=== PATIENT | male | born 1935 | race Caucasian/White ===

== ENCOUNTER 2017-03-08 08:55 | Day surgery (SDC) | payer MEDICARE, OTHER ==
[~2017-03-08] VITALS: Ht 180.3 cm; Wt 81.8 kg
[~2017-03-08 08:55] MED LIST: ACETAMINOPHEN325 M1 PO; ADVIL200 MG PO; ASPIRIN EC81 MG PO; ATENOLOL25 MG PO; BENADRYL ALLERG25 MG PO; CALCIUM 600 +1 EACH PO; CENTRUM SILVER1 EAC6 PO; GLUCOSAMINE CO1 EACH PO; HYOSCYAMINE0.125 MG PO; KEFLEX500 MG PO; RILUZOLE50 MG PO; VENTOLIN HFA18 GM INH; VITAMIN B-12500 MCG PO; VITAMIN C1000 MG PO; VITAMIN D32000 UNI1 PO; VITAMIN E400 UNI2 PO
[2017-03-08] MEDS ORDERED: HYDROCODON-ACE1 EA10 PO (11:38)
--- NOTE | 2017-03-08 12:09 | NUR ---
03/08/17 Suha Ltot PT PORT IS ACCESSED FROM OR, PT GOING TO DS FOR INFUSION. DS WILL GO OVER DC INSTRUCTIONS. VSS.
--- NOTE | 2017-03-08 12:44 | NUR ---
PT RETURNED FROM PACU WIDE AWAKE. ODILIA CATH SITE ACCESSED FROM OR.
--- NOTE | 2017-03-08 13:29 | NUR ---
RADICAVA INFUSION COMPLETE. LINE FLUSHED W/20 ML NS AND ANCEF 1 GRAM GIVEN OVER 3 MINUTES. SPOUSE REMAINS @ BS.
--- NOTE | 2017-03-08 13:40 | NUR ---
PT REQ WATER. WATER GIVEN. PT SIPS ON WATER AND TOLERATES THAT WELL.
--- NOTE | 2017-03-08 16:05 | NUR ---
LE 1430 PT WITH NO C/O'S. GETTING DRESSED TO GO HOME. 1450 LEFT VIA W/C. WILL RETURN DAILY FOR IV THERAPY AT 10AM.
--- NOTE | 2017-03-10 09:32 | OR ---
[facility] [address], [place] [address] Signed DATE OF OPERATION: 03/08/2017 SURGEON: Zaria Robles MD PREOPERATIVE DIAGNOSIS: Progressive amyotrophic lateral sclerosis (ALS). POSTOPERATIVE DIAGNOSIS: Progressive amyotrophic lateral sclerosis (ALS). PROCEDURES: 1. Right subclavian Port-A-Cath placement for novel therapy for ALS. 2. Surgeon-directed fluoroscopy. ANESTHESIA: General IV, (Zaria Mart CRNA) and local 10 mL of 0.1% lidocaine with epinephrine. INDICATION: This 81-year-old white man is a patient of Dr. Lorenzo De La O and also Dr. Polly Silverio of [place], [place], and has progressive ALS. A novel intravenous treatment plan has been outlined for him in hopes of arresting the progression of the disease. A Port-A-Cath has been recommended for assistance in placement of administration of that medication. The patient and his understand the risks of bleeding, infection, pneumothorax, and other unforeseen complications related to placement of the device and wished to proceed. A special note: The patient fell in his home in the past day or so and then applied a heating pad to his back, which caused a superficial thermal injury. I have reviewed this and there is minimal amount of less than 1 cm blistering in one area, but it likely will heal without elaborate measures. It does not pose a contraindication to placement of the Port-A-Cath at this time. FINDINGS: The patient had a fair amount of scar tissue and issues related to his left shoulder and therefore, a left infraclavicular approach was not appropriate. An attempt to right internal jugular approach was not forthcoming and therefore, a right subclavian approach was used with good success. Catheter was functioning well and was left accessed at completion of the procedure. A postprocedure chest x-ray in recovery room showed tip of the catheter in the superior vena cava without evidence of complication of pneumothorax Electronically Signed By: ZARIA ROBLES MD 03/10/17 0932 PATIENT NAME: ZAKIA WISE OPERATIVE REPORT DATE OF : 33 PHYSICIAN: ZARIA ROBLES MD REPORT #: [id number] REPORT IS CONFIDENTIAL AND NOT TO BE RELEASED WITHOUT AUTHORIZATION [facility] [address], [place] [address] Signed or other problems. DESCRIPTION OF PROCEDURE: The patient was brought to the operating room, placed in the supine position, given intravenous sedation to a deep level with full cardiopulmonary monitoring by the music specialist. Examination of the left infraclavicular space and shoulder showed a fair amount of scar tissue and so forth, and it was deemed an unlikely site for placement of the device. On that basis, the upper torso and neck were clipped and prepared with a chlorhexidine solution, draped sterilely and his face turned towards the left. 1% lidocaine was injected over the right sternocleidomastoid muscle inferior to the crossing vein after a sterile draping. Attempts at access to right internal jugular were unsuccessful despite attempts to do so, and on that basis, the right infraclavicular space was deemed most appropriate. Additional lidocaine anesthetic was injected there and using a Seldinger technique with a single pass, the right subclavian vein was accessed showing dark nonpulsatile blood. A flexible J-wire was passed down the needle and the needle removed. Fluoroscopy was used to confirm the wire in the right heart system. Sternal wires were noted in the visual field as well. Lidocaine was injected transversely over the right pectoralis muscle area and a transverse incision was made and dissection carried through the subcutaneous tissue with electrocautery and blunt dissection. A pocket was created inferiorly. Using an #11 blade, the puncture side in the infraclavicular space was incised and subsequently dilator and peel-away sheath introducer have passed over the wire, and the wire and dilator removed. A previously inspected Bard port Groshong catheter was passed down the peel-away sheath introducer and the peel-away sheath removed. A small amount of contrast was used to better visualize the catheter. The table was returned to a neutral position from Trendelenburg and fluoroscopy undertaken once again. This allowed for withdrawal of the catheter to situate the tip of the catheter in the superior vena cava. It appeared to be optimally placed. The catheter was flushed with heparinized saline and using a tunneling device, the catheter was delivered to the pocket, located inferiorly on the chest wall. The catheter was transected and at the appropriate length and secured to the port device within close collar device. The port was secured to the pectoralis fascia with 2-0 Vicryl suture. Access of the port with an angled Concepcion needle showed good return of blood and easy flushing. The pocket was then secured in the subcutaneous space with interrupted 2-0 Vicryl and skin closed with running subcuticular 3-0 Vicryl. The puncture site was reapproximated with interrupted 3-0 Vicryl. Steri-Strips were applied. An angled Concepcion needle once again used to percutaneously access device, aspirating blood freely without problem and Electronically Signed By: ZARIA ROBLES MD 03/10/17 0932 PATIENT NAME: ZAKIA WISE ZAIN OPERATIVE REPORT DATE OF : 33 PHYSICIAN: ZARIA ROBLES MD REPORT #: [id number] REPORT IS CONFIDENTIAL AND NOT TO BE RELEASED WITHOUT AUTHORIZATION [address] [place] [address] Signed irrigating freely with heparinized saline. The port was left accessed with the angled Concepcion needle and appropriate tubing and connectors. A Mepilex silver sponge dressing was applied as was an OpSite. The patient was allowed to emerge from sedation and taken to recovery room in good condition. A chest x-ray was performed, which showed good position of the catheter with the tip in the superior vena cava and no evidence of pneumothorax or other problem. The patient tolerated the procedure well. BLOOD LOSS: Minimal. COMPLICATIONS: None. MD IRENA Allen/MODL /[id number] cc: MD Em Shetty MD Electronically Signed By: ZARIA ROBLES MD 03/10/17 0932 PATIENT NAME: ZAKIA WISE OPERATIVE REPORT DATE OF : 34 PHYSICIAN: ZARIA ROBLES MD REPORT #: [id number] REPORT IS CONFIDENTIAL AND NOT TO BE RELEASED WITHOUT AUTHORIZATION
== END 2017-03-08 14:50 | disposition home or self-care (01) ==
LOC: DS 08:55 → OPS 08:55 → DS 11:15 → OPS 11:15
PROVIDERS: Surgery
PROC: B516YZA Fluoroscopy of Right Subclavian Vein using Other Contrast, Guidance (ICD-10-PCS; 2017-03-08)
PROC: 3E03305 Introduction of Other Antineoplastic into Peripheral Vein, Percutaneous Approach (ICD-10-PCS; 2017-03-08)
PROC: 05H533Z Insertion of Infusion Device into Right Subclavian Vein, Percutaneous Approach (ICD-10-PCS; principal; 2017-03-08 11:15)
DX: G12.21 Amyotrophic lateral sclerosis (principal); Z98.890 Other specified postprocedural states; I25.10 Atherosclerotic heart disease of native coronary artery without angina pectoris; E78.5 Hyperlipidemia, unspecified; I10 Essential (primary) hypertension; G47.33 Obstructive sleep apnea (adult) (pediatric); Z99.81 Dependence on supplemental oxygen
CPT/HCPCS: 00532; 71010; 77001; C1788; C9493; J0690; J1100; J1644; J1885; J2250; J2405; J2704; J3010

== ENCOUNTER 2017-04-19 23:13 | Emergency (ER) | payer MEDICARE, OTHER ==
[~2017-04-19] VITALS: Ht 180.3 cm; Wt 79.4 kg
[~2017-04-19 23:13] MED LIST changes: +HYDROCODON-ACE1 EA10 PO
== END 2017-04-20 00:50 | disposition home or self-care (01) ==
LOC: ED 23:13
DX: J39.8 Other specified diseases of upper respiratory tract (principal); G12.21 Amyotrophic lateral sclerosis; Z86.73 Personal history of transient ischemic attack (TIA), and cerebral infarction without residual deficits; I10 Essential (primary) hypertension; E78.5 Hyperlipidemia, unspecified; Z79.899 Other long term (current) drug therapy; Z79.82 Long term (current) use of aspirin
CPT/HCPCS: 70360; 71010; 99283

== ENCOUNTER 2017-09-13 17:53 | Emergency (ER) | payer MEDICARE, OTHER ==
[~2017-09-13] VITALS: Ht 180.3 cm; Wt 79.5 kg
== END 2017-09-13 19:15 | disposition home or self-care (01) ==
LOC: ED 17:53
DX: S42.032A Displaced fracture of lateral end of left clavicle, initial encounter for closed fracture (principal); S22.42XA Multiple fractures of ribs, left side, initial encounter for closed fracture; I48.91 Unspecified atrial fibrillation; I10 Essential (primary) hypertension; E78.5 Hyperlipidemia, unspecified; Z86.73 Personal history of transient ischemic attack (TIA), and cerebral infarction without residual deficits; Z79.899 Other long term (current) drug therapy; Z79.82 Long term (current) use of aspirin; W18.30XA Fall on same level, unspecified, initial encounter
CPT/HCPCS: 73030; 99283

== ENCOUNTER 2018-07-11 11:02 | Emergency (ER) | payer MEDICARE, OTHER ==
[~2018-07-11] VITALS: Ht 180.3 cm; Wt 79.5 kg
--- OUTSIDE RECORDS SUMMARY | 2018-07-11 11:06 | XMS ---
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 Curt VISIT COUNT (12 MO.) 2 MAURY Chowdary TOTAL 2 NOTE: Visits indicate total known visits. 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
[2018-07-11] MEDS ORDERED: NORCO 5-325 TA1 EACH PO (11:53)
== END 2018-07-11 13:00 | disposition home or self-care (01) ==
LOC: ED 11:02
PROC: 093K7ZZ Control Bleeding in Nasal Mucosa and Soft Tissue, Via Natural or Artificial Opening (ICD-10-PCS; principal; 2018-07-11)
DX: R04.0 Epistaxis (principal); I48.91 Unspecified atrial fibrillation; I10 Essential (primary) hypertension; Z86.73 Personal history of transient ischemic attack (TIA), and cerebral infarction without residual deficits; E78.5 Hyperlipidemia, unspecified; G62.9 Polyneuropathy, unspecified; Z79.899 Other long term (current) drug therapy; Z79.82 Long term (current) use of aspirin
CPT/HCPCS: 30903; 85025; 85610; 85730; 99283-25

== ENCOUNTER 2018-09-22 17:16 | Inpatient (IN) | payer MEDICARE, OTHER ==
[~2018-09-22] VITALS: Ht 177.8 cm; Wt 76.5 kg
--- OUTSIDE RECORDS SUMMARY | ~2018-09-22 | XMS | Encounter Summary ---
Demographics + + + | Address | [address] | | | [place] [address] | + + + | Home Phone | | + + + | Preferred Language | Unknown | + + + | Marital Status | | + + + | Catholic Affiliation | UNK | + + + | Race | White | + + + | Ethnic Group | Not or | + + + Author + + + | Author | [facility] | + + + | Organization | [facility] | + + + | Address | Unknown | + + + | Phone | Unavailable | + + + Support + + +---------+ + | Name | Relationship | Address | Phone | + + +---------+ + | Ria Zaidi | ECON | Unknown | | + + +---------+ + Care Team Providers + +------+ + | Care Club Licensee Name | Role | Phone | + +------+ + PCP | Unavailable | + +------+ + Encounter Details +--------+ + + + + | Date | Type | Department | Care Team | Description | +--------+ + + + + | 06/05/ | Office | [facility] | Note, Outpatient | Progress Note | | 2001 | Visit-Trans | MEDICINE | Clinic | | | | cribed | | | | +--------+ + + + + Social History + +-------+ +--------+------+ | Tobacco [...] recent travel history available. | + + documented as of this encounter Progress Notes Interface, Town Clerk In - 01/16/2006 1:06 AM PDTCLINIC DATE: 06/05/2001 ORTHOPEDIC CLINIC This patient returned for followup of a left total shoulder arthroplasty performed on May 17, 2001. His wound is well healed, and his pain is settling nicely. He is regaining good range of motion, and we have reviewed again the home exercise program. No voice concerns were raised, and he was asked to return in 1 month's time for clinical followup and repeat x-rays, AP, internal, and external rotation; and x-ray lateral of the left shoulder. Mohan Tapia M.D. ESTELA / REY [id number] / [id number] / [id number] / Tdocumented in this encounter Plan of Treatment Not on filedocumented as of this encounter Visit Diagnoses Not on filedocumented in this encounter"
--- OUTSIDE RECORDS SUMMARY | ~2018-09-22 | XMS | Encounter Summary ---
Demographics + + + | Address | [address] | | | [place] [address] | + + + | Home Phone | | + + + | Preferred Language | Unknown | + + + | Marital Status | | + + + | Moravian Affiliation | UNK | + + + | Race | White | + + + | Ethnic Group | Not or | + + + Author + + + | Author | [facility] | + + + | Organization | [facility] | + + + | Address | Unknown | + + + | Phone | Unavailable | + + + Support + + +---------+ + | Name | Relationship | Address | Phone | + + +---------+ + | Ria Zaidi | ECON | Unknown | | + + +---------+ + Care Team Providers + +------+ + | Care Salvage Determiner Name | Role | Phone | + +------+ + PCP | Unavailable | + +------+ + Encounter Details +--------+ + + + + | Date | Type | Department | Care Team | Description | +--------+ + + + + | 07/03/ | Office | [facility] | Note, [...] documented as of this encounter Progress Notes Palmer, Technician Biological Health In - 01/12/2006 3:07 AM PDTCLINIC DATE: 07/03/2001 ORTHOPEDIC CLINIC This patient returned for a 7-week followup of left total shoulder arthroplasty. He is progressing well with his range of motion and has little pain. He still has some discomfort when sleeping on his left side at night. Radiographs show maintenance of good alignment of the implant. We will advance him to commence using Thera-Band as well as continuing with the range of motion exercise. He is to return for followup in 6 weeks' time for clinical reassessment. Mohan Tapia M.D. ESTELA / REY [id number] / [id number] / [id number] / Tdocumented in this encounter Plan of Treatment Not on filedocumented as of this encounter Visit Diagnoses Not on filedocumented in this encounter"
--- OUTSIDE RECORDS SUMMARY | ~2018-09-22 | XMS | Encounter Summary ---
Demographics + + + | Address | [address] | | | [place] [address] | + + + | Home Phone | | + + + | Preferred Language | Unknown | + + + | Marital Status | | + + + | Worship Affiliation | UNK | + + + | Race | White | + + + | Ethnic Group | Not or | + + + Author + + + | Author | [facility] | + + + | Organization | [facility] | + + + | Address | Unknown | + + + | Phone | Unavailable | + + + Support + + +---------+ + | Name | Relationship | Address | Phone | + + +---------+ + | Ria Zaidi | ECON | Unknown | | + + +---------+ + Care Team Providers + +------+ + | Care Certified Registered Nurse Practitioner Name | Role | Phone | + [...] as of this encounter Progress Notes Palmer, Variety Saw Operator In - 01/12/2006 3:07 AM PDTCLINIC DATE: [...] reassessment. Mohan Tapia M.D. ESTELA / REY [id number] / [id number] / [id number] / Tdocumented in this encounter Plan of Treatment Not on filedocumented as of this encounter Visit Diagnoses Not on filedocumented in this encounter"
--- OUTSIDE RECORDS SUMMARY | ~2018-09-22 | XMS | Encounter Summary ---
Demographics + + + | Address | [address] | | | [place] [address] | + + + | Home Phone | | + + + | Preferred Language | Unknown | + + + | Marital Status | | + + + | Holiness Affiliation | UNK | + + + | Race | White | + + + | Ethnic Group | Not or | + + + Author + + + | Author | [facility] | + + + | Organization | [facility] | + + + | Address | Unknown | + + + | Phone | Unavailable | + + + Support + + +---------+ + | Name | Relationship | Address | Phone | + + +---------+ + | Ria Zaidi | ECON | Unknown | | + + +---------+ + Care Team Providers + +------+ + | Care Auto Mechanic Name | Role | Phone | + +------+ + PCP | Unavailable | + +------+ + Encounter Details +--------+ + + + + | Date | Type | Department | Care Team | Description | +--------+ + + + + | 03/01/ | Results | [facility] | Wesley Mathew MD | | | 2001 | Only | & Rehabilitation | [address] | | | | | [address] | [facility], | | | | | [facility] | [place] [address] | | | | | Mailcode: [id number] | [phone] | | | | | Phys[facility] | | | | | | [place], [place] | | | | | | [address] | | | | | | [phone] | | | +--------+ + + + [...] + + documented as of this encounter Plan of Treatment Not on filedocumented as of this encounter Procedures + +--------+ + + + | Procedure Name | Priori | Date/Time | Associated Diagnosis | Comments | | | ty | | | | + +--------+ + + + | X-RAY SHOULDER 3+ | Routin | 03/01/2002 | | Results for this | | VIEWS LEFT | e | 1:07 PM | | procedure are in the | | | | PST | | results section. | + +--------+ + + + documented in this encounter Results SHOULDER 3+ VIEWS LEFT (03/01/2002 1:07 PM PST) + + + + + + | Component | Value | Ref Range | Performed | Pathologist | | | | | At | Signature | + + + + + + | SHOULDER 3+ | Radiologist 1: EMMETT, | | | | | VIEWS LEFT | Larry ARREDONDOAP EXTERNAL | | | | | | ROTATION AND INTERNAL | | | | | | ROTATION AND SUPINE | | | | | | AXILLARY VIEWSOF THE | | | | | | LEFT | | | | | | SHOULDER: 03/01/2002 | | | | | | at 1257 hours | | | | | | Dictated 03/01/2002 | | | | | | COMPARISON: | | | | | | 11/20/2001 and | | | | | | 07/03/2001. | | | | | | FINDINGS: A left | | | | | | shoulder unipolar | | | | | | humeral head prosthesis | | | | | | is onceagain | | | | | | identified. There is | | | | | | no change in position or | | | | | | alignment. Thereis | | | | | | less than 2 mm of distal | | | | | | periprosthetic lucency | | | | | | present, thoughthis does | | | | | | not appear | | | | | | significantly changed | | | | | | from the prior | | | | | | examination.Once again | | | | | | noted is flattening and | | | | | | sclerosis of the | | | | | | glenoid, which hasbeen | | | | | | described | | | | | | previously. The | | | | | | relationship between the | | | | | | proximalhumeral head | | | | | | component and the | | | | | | acromion remains within | | | | | | normal limits.The | | | | | | acromioclavicular joint | | | | | | remains intact. There | | | | | | are no | | | | | | hardwarecomplications. | | | | | | There is no | | | | | | periprosthetic | | | | | | fracture. There is | | | | | | nodislocation. | | | | | | IMPRESSION: | | | | | | 1. Unchanged position | | | | | | and alignment of the | | | | | | left unipolar humeral | | | | | | headprosthesis without | | | | | | evidence of hardware | | | | | | complication or | | | | | | periprostheticfracture. | | | | | | 2. 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 END | | | | | | OF IMPRESSION: | | | | + + + + + + + + | Specimen | + + | | + + + +---------+ + + | Performing | Address | City/State/Zipcode | Phone Number | | Organization | | | | + +---------+ + + | [facility] | | | | | RADIOLOGY | | | | + +---------+ + + documented in this encounter Visit Diagnoses Not on filedocumented in this encounter"
--- OUTSIDE RECORDS SUMMARY | ~2018-09-22 | XMS | Encounter Summary ---
Demographics + + + | Address | [address] | | | [place] [address] | + + + | Home Phone | | + + + | Preferred Language | Unknown | + + + | Marital Status | | + + + | Latter Day Affiliation | UNK | + + + | Race | White | + + + | Ethnic Group | Not or | + + + Author + + + | Author | [facility] | + + + | Organization | [facility] | + + + | Address | Unknown | + + + | Phone | Unavailable | + + + Support + + +---------+ + | Name | Relationship | Address | Phone | + + +---------+ + | Ria Zaidi | ECON | Unknown | | + + +---------+ + Care Team Providers + +------+ + | Care Quality Control Tech Raw Materials Name | Role | Phone | + +------+ + PCP | Unavailable | + +------+ + Encounter Details +--------+ + + + + | Date | Type | Department | Care Team | Description | +--------+ + + + + | 07/01/ | Office | [facility] | Note, [...] as of this encounter Progress Notes Palmer, Lead Technologist In Cytogenetics In - 01/12/2006 3:07 AM PDTCLINIC DATE: 07/01/2001 ORTHOPEDIC CLINIC SUBJECTIVE: Mr. Zaidi is now approximately 7 weeks status post left total shoulder arthroplasty. His surgery was on May 17, 2001. He returns today for a routine followup with his . He reports he has been having some trouble sleeping but denies any significant pain. He has been doing his pool exercises as well as vadim exercises. PHYSICAL EXAMINATION: His incision is well healed. He has no erythema. He has shoulder elevation to approximately 140 degrees, abduction to approximately 100 degrees. He has internal rotation to his back pocket. Distally, he is neurovascularly intact. IMPRESSION: X-rays today show a good position of his prosthesis. PLAN: Mr. Zaidi is now some weeks out from left total shoulder arthroplasty. He appears to be doing well. At this point, we will advance his activities to begin strengthening with the Yellow Thera-Band. The details were reviewed with the patient. The patient is to follow up again in 6 weeks. Shayna Alas M.D. [facility] / [id number] / [id number] / [id number] / [id number] Tdocumented in this encounter Plan of Treatment Not on filedocumented as of this encounter Visit Diagnoses Not on filedocumented in this encounter"
--- OUTSIDE RECORDS SUMMARY | ~2018-09-22 | XMS | Encounter Summary ---
Demographics + + + | Address | [address] | | | [place] [address] | + + + | Home Phone | | + + + | Preferred Language | Unknown | + + + | Marital Status | | + + + | Yarsanism Affiliation | UNK | + + + | Race | White | + + + | Ethnic Group | Not or | + + + Author + + + | Author | [facility] | + + + | Organization | [facility] | + + + | Address | Unknown | + + + | Phone | Unavailable | + + + Support + + +---------+ + | Name | Relationship | Address | Phone | + + +---------+ + | Ria Zaidi | ECON | Unknown | | + + +---------+ + Care Team Providers + +------+ + | Care Custom Bike Builder Name | Role | Phone | + +------+ + PCP | Unavailable | + +------+ + Encounter Details +--------+ + + + + | Date | Type | Department | Care Team | Description | +--------+ + + + + | 03/01/ | Office | [facility] | Note, Orthopedics | Progress Note | | 2001 | Visit-Trans | | Clinic | | | | cribed [...] as of this encounter Progress Notes Interface, Community Service Specialist In - 12/08/2005 3:00 AM PDTCLINIC DATE: 03/01/2002 ORTHOPEDIC CLINIC This patient returned for a 9-month followup of a 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 His elevation is up to about 130 degrees with 45 degrees of external rotation and internal rotation to L5. His power is also progressing well, and he is using the blue Thera-Bands. His comfort is excellent. He has been adding some exercise to his regime including pectoralis major flies and some circumduction movement with weights in the hand. I cautioned him not to overdo it with free weights and to particularly avoid anything such as a bench press. Other than this, I believe that he can do most activities without restrictions. We reviewed his therapy program at some length. He will be departing for [place] in about a month, and I suggested that he return to see me in July 2002 when he is back in town. We will repeat radiographs AP internal and external rotation, axillary, lateral of the left shoulder at that time. Mohan Tapia M.D. [facility] / [id number] / [id number] / [id number] / cc: Evan De La O M.D. [address] [place], [place] [email or web address] signed by Interface, Community Service Specialist In at 12/08/2005 3:0 0 AM PDTdocumented in this encounter Plan of Treatment Not on filedocumented as of this encounter Visit Diagnoses Not on filedocumented in this encounter"
--- OUTSIDE RECORDS SUMMARY | ~2018-09-22 | XMS | Encounter Summary ---
Demographics + + + | Address | [address] | | | [place] [address] | + + + | Home Phone [...] + + + | Author | [facility] | + + + | Organization | [facility] | + + + | Address | Unknown | + + + | Phone | Unavailable | + + + Support + + +---------+ + | Name | Relationship | Address | Phone | + + +---------+ + | Ria Zaidi | ECON | Unknown | | + + +---------+ + Care Team Providers + +------+ + | Care Toolroom Keeper Name | Role | Phone | + +------+ + PCP | Unavailable | + +------+ + Encounter Details +--------+ + + + + | Date | Type | Department | Care Team | Description | +--------+ + + + + | 03/31/ | Results | Orthopaedics at | Mohan Tapia MD | | | 2000 | Only | [facility] [address] | [address] | | | | | [facility] | [facility] | | | | | Mailcode: [id number] | [place], [place] | | | | | [facility] | [address] | | | | | [place], [place] | [phone] | | | | | [address] | | | | | | [phone] | | | +--------+ + + + [...] | + +--------+ + + + | SURGICAL PATHOLOGY | Routin | 05/17/2001 | | Results for this | | | e | | | procedure are in the | | | | | | results section. | + +--------+ + + + | BLOOD BANK PRODUCT | Routin | 05/16/2001 | | Results for this | | | e | 11:50 AM | | procedure are in the | | | | PST | | results section. | + +--------+ + + + | BLOOD BANK PRODUCT | Routin | 05/16/2001 | | Results for this | | | e | 11:50 AM | | procedure are in the | | | | PST | | results section. | + +--------+ + + + | TYPE AND CROSSMATCH | Routin | 05/16/2001 | | Results for this | | | e | 11:50 AM | | procedure are in the | | | | PST | | results section. | + +--------+ + + + | CT UPPER EXTREMITY | Routin | 03/31/2001 | | Results for this | | RIGHT WO CONTRAST | e | 12:10 PM | | procedure are in the | | | | PST | | results section. | + +--------+ + + + | CT UPPER EXTREMITY | Routin | 03/31/2001 | | Results for this | | LEFT WO CONTRAST | e | 12:10 PM | | procedure are in the | | | | PST | | results section. | + +--------+ + + + | SHOULDER, 1 VIEW | Routin | 03/31/2001 | | Results for this | | | e | 10:18 AM | | procedure are in the | | | | PST | | results section. | + +--------+ + + + documented in this encounter Results SURGICAL PATHOLOGY (05/17/2001) + + + + + + | Component | Value | Ref Range | Performed | Pathologist | | | | | At | Signature | + + + + + + | SURGICAL | SOURCE OF SPECIMEN:A | | [facility] | | | PATHOLOGY | Left humeral head Final | | DEPARTMENT | | | | Pathologic | | OF | | | | Diagnosis:Left humeral | | PATHOLOGY | | | | head, excision: | | | | | | - Bone with degenerative | | | | | | changes Case reviewed | | | | | | by:Jeb Boo | | | | | | Larry /Cecelia Castellon | | | | | | Larry Richey | | | | | | /PathologistT:05/24/01/ | | | | | | I have reviewed all | | | | | | diagnostic slides and | | | | | | have edited the gross | | | | | | and/ormicroscopic | | | | | | portion of this report | | | | | | as part of my pathologic | | | | | | assessment andfinal | | | | | | diagnosis. 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 Gross | | | | | | Description:Received is | | | | | | one specimen fresh | | | | | | labeled "left humeral | | | | | | head." Received | | | | | | aretwo irregular, | | | | | | unoriented fragments of | | | | | | circular to slightly | | | | | | ovoid bone withone of | | | | | | the fragments having a | | | | | | convex surface, grossly | | | | | | consistent with headof a | | | | | | bone, measuring 6.0 x | | | | | | 5.5 x 0.7 cm. There | | | | | | is a central area that | | | | | | istan to red and smooth, | | | | | | measuring 2.7 x 2.7 cm | | | | | | which encompasses at | | | | | | least50% of the total | | | | | | surface area. The | | | | | | second fragment of bone | | | | | | is a slicemeasuring 6.0 | | | | | | x 5.2 cm. No cortical | | | | | | bone is noted. The | | | | | | trabecular bone isbright | | | | | | red. Further | | | | | | examination of the | | | | | | convex fragment reveals | | | | | | an area ofpossible | | | | | | cortical bone measuring | | | | | | up to 0.4 cm | | | | | | encompassing one-fourth | | | | | | ofthe total | | | | | | circumference. The | | | | | | remainder of the | | | | | | trabecular bone | | | | | | isyellow-red. Cassette | | | | | | Index:A1-2, sections | | | | | | from last sectioned | | | | | | piece of bone, | | | | | | RS Decalcificationreq | | | | | | uestedA3, section from | | | | | | convex portion of bone | | | | | | with central smooth | | | | | | area, RSDecalcification | | | | | | requestedSP/VK/AR/fRende | | | | | | ring | | | | | | Diagnostician: Masha | | | | | | Kaiden | | | | | | M.D.PathologistElectroni | | | | | | rufino Signed | | | | | | 05/24/2001Comment: | | | | | | SOURCE OF SPECIMEN: Left | | | | | | humeral head | | | | + + + + + + + + | Specimen | + + | | + + + + + + + | Performing | Address | City/State/Zipcode | Phone Number | | Organization | | | | + + + + + | [facility] | [address] | [place] [address] | | | PATHOLOGY | [address] | | | + + + + + | [facility] | [facility] | [place] [address] | | | PATHOLOGY | [address] | | | + + + + + BLOOD BANK PRODUCT (05/16/2001 11:50 AM PST) + + + + + + | Component | Value | Ref Range | Performed | Pathologist | | | | | At | Signature | + + + + + + | PRODUCT | PACKED CELLS | | [facility] | | | DESCRIPTION | | | DEPARTMENT | | | | | | OF | | | | | | PATHOLOGY | | + + + + + + | PRODUCT | [id number] | | [facility] | | | UNIT # | | | DEPARTMENT | | | | | | OF | | | | | | PATHOLOGY | | + + + + + + | UNIT ABO | A | | [facility] | | | | | | DEPARTMENT | | | | | | OF | | | | | | PATHOLOGY | | + + + + + + | UNIT RH | POS | | [facility] | | | | | | DEPARTMENT | | | | | | OF | | | | | | PATHOLOGY | | + + + + + + | STATUS OF | Released | | [facility] | | | UNIT | | | DEPARTMENT | | | | | | OF | | | | | | PATHOLOGY | | + + + + + + + + | Specimen | + + | | + + + + + + + | Performing | Address | City/State/Zipcode | Phone Number | | Organization | | | | + + + + + | [facility] DE[facility]MENT [facility] | [address] | [place], [place] [address] | | | PATHOLOGY | [address] | | | + + + + + | [facility] DE[facility]MENT [facility] | [address] | [place] [address] | | | PATHOLOGY | [address] | | | + + + + + BLOOD BANK PRODUCT (05/16/2001 11:50 AM PST) + + + + + + | Component | Value | Ref Range | Performed | Pathologist | | | | | At | Signature | + + + + + + | PRODUCT | PACKED CELLS | | [facility] | | | DESCRIPTION | | | DEPARTMENT | | | | | | OF | | | | | | PATHOLOGY | | + + + + + + | PRODUCT | [id number] | | [facility] | | | UNIT # | | | DEPARTMENT | | | | | | OF | | | | | | PATHOLOGY | | + + + + + + | UNIT ABO | A | | [facility] | | | | | | DEPARTMENT | | | | | | OF | | | | | | PATHOLOGY | | + + + + + + | UNIT RH | POS | | [facility] | | | | | | DEPARTMENT | | | | | | OF | | | | | | PATHOLOGY | | + + + + + + | STATUS OF | Released | | [facility] | | | UNIT | | | DEPARTMENT | | | | | | OF | | | | | | PATHOLOGY | | + + + + + + + + | Specimen | + + | | + + + + + + + | Performing | Address | City/State/Zipcode | Phone Number | | Organization | | | | + + + + + | [facility] | [address] | [place] [address] | | | PATHOLOGY | [address] | | | + + + + + | [facility] | [address] | [place] [address] | | | PATHOLOGY | [address] | | | + + + + + ANTIBODY SCREEN & CROSSMATCH (05/16/2001 11:50 AM PST) + +-------+ + + + | Component | Value | Ref Range | Performed | Pathologist | | | | | At | Signature | + +-------+ + + + | ABO GROUP | A | | [facility] | | | | | | DEPARTMENT | | | | | | OF | | | | | | PATHOLOGY | | + +-------+ + + + | RH TYPE | POS | | [facility] | | | | | | DEPARTMENT | | | | | | OF | | | | | | PATHOLOGY | | + +-------+ + + + | ANTIBODY | NEG | | [facility] | | | SCREEN | | | DEPARTMENT | | | | | | OF | | | | | | PATHOLOGY | | + +-------+ + + + + + | Specimen | + + | | + + + + + | Narrative | Performed At | + + + | EXP 05/20/01 0700 | [facility] | | | DEPARTMENT OF | | | PATHOLOGY | + + + + + + + + | Performing | Address | City/State/Zipcode | Phone Number | | Organization | | | | + + + + + | [facility] | [address] | [place] [address] | | | PATHOLOGY | [address] | | | + + + + + | [facility] | [address] | [place] [address] | | | PATHOLOGY | [address] | | | + + + + + CT EXT UPR RT WO CONTRAST (03/31/2001 12:10 PM PST) + + + + + + | Component | Value | Ref Range | Performed | Pathologist | | | | | At | Signature | + + + + + + | CT EXT UPR | Radiologist 1: KOKO, | | | | | RT WO | Tim BRODERICK, | | | | | CONTRAST | M.D.-Radiologist 2: | | | | | | MURRAY PERKINS M.D.CT OF | | | | | | RIGHT SHOULDER WITH | | | | | | SAGITTAL AND | | | | | | CORONAL REFORMATIONS: | | | | | | 03/31/2001CT OF LEFT | | | | | | SHOULDER WITH SAGITTAL | | | | | | AND | | | | | | CORONAL REFORMATIONS: | | | | | | 03/31/2001Dictated | | | | | | 04/03/2001 CLINICAL: | | | | | | Left shoulder pain. | | | | | | COMPARISON STUDY: | | | | | | Axillary view, left | | | | | | shoulder, 03/31/01. | | | | | | TECHNICAL FACTORS: 3 | | | | | | mm axial imaging was | | | | | | performed at 2 | | | | | | mmintervals. A small | | | | | | field of view was used | | | | | | and each shoulder | | | | | | wastargeted | | | | | | separately. Sagittal | | | | | | and coronal reformatted | | | | | | images areobtained | | | | | | bilaterally; No IV | | | | | | contrast was given. | | | | | | FINDINGS: RIGHT | | | | | | SHOULDER: There is | | | | | | minimal degenerative | | | | | | change in the | | | | | | rightacromioclavicular | | | | | | joint with very mild | | | | | | inferior spurring of | | | | | | theclavicle. The | | | | | | subacromial joint space | | | | | | is at 6 mm, the lower | | | | | | limits | | | | | | ofnormal. Glenohumera | | | | | | l joint space is | | | | | | well-maintained. No | | | | | | fracture orsubluxation | | | | | | is identified. There | | | | | | are minimal subchondral | | | | | | cyst-likechanges in the | | | | | | greater and lesser | | | | | | tuberosities of the | | | | | | humerus. Noother | | | | | | degenerative changes are | | | | | | identified. No loose | | | | | | body is seen. The | | | | | | acromion is of a Type II | | | | | | appearance. No focal | | | | | | rotator cuffdeficit is | | | | | | identified. LEFT | | | | | | SHOULDER: There is | | | | | | advanced degenerative | | | | | | joint disease in theleft | | | | | | glenohumeral | | | | | | joint. There are | | | | | | prominent glenoid and | | | | | | humeral headosteophytes | | | | | | with reciprocal shaping | | | | | | of both the articulating | | | | | | humerusand | | | | | | glenoid. There is | | | | | | complete loss of joint | | | | | | space with a bone onbone | | | | | | | | | | | | appearance. Osteophyt | | | | | | es effectively increase | | | | | | the height of | | | | | | thearticulating humeral | | | | | | head and the humeral | | | | | | head is slightly | | | | | | inferiorlysubluxed in | | | | | | relation to the | | | | | | glenoid. There is | | | | | | deformity and | | | | | | milddownsloping of the | | | | | | glenoid in association | | | | | | with reciprocal | | | | | | shaping.Several of the | | | | | | marginal osteophytes are | | | | | | large and | | | | | | pedunculated. In | | | | | | atleast two areas, loose | | | | | | bodies are suspected | | | | | | measuring 7-10 | | | | | | mm. Theseare seen at | | | | | | the inferior margin of | | | | | | the glenohumeral | | | | | | joint. There | | | | | | isextensive subchondral | | | | | | sclerosis in the humeral | | | | | | head. There is | | | | | | mildcontour deformity in | | | | | | the humeral neck region | | | | | | suggesting old | | | | | | healedfracture. No | | | | | | recent fracture is | | | | | | identified. The | | | | | | acromioclavicular joint | | | | | | is | | | | | | normal. Subacromial | | | | | | joint space | | | | | | ismaintained. There is | | | | | | increased retroversion | | | | | | of the left glenoid when | | | | | | compared tothe | | | | | | right. Direct | | | | | | measurement is difficult | | | | | | secondary to exclusion | | | | | | ofthe medial border of | | | | | | the scapula which is | | | | | | normally used | | | | | | formeasurement. It is | | | | | | difficult to determine | | | | | | whether left | | | | | | glenoidretroversion is | | | | | | developmental or | | | | | | acquired. The left | | | | | | acromioclavicular joint | | | | | | is normal and the left | | | | | | acromion is ofa Type II | | | | | | appearance. IMPRESSION: | | | | | | 1. 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 There is a | | | | | | bone on bone appearance | | | | | | withextensive marginal | | | | | | osteophyte formation as | | | | | | described above. | | | | | | 2. Probable small | | | | | | loose bodies adjacent to | | | | | | the inferior | | | | | | leftglenohumeral joint | | | | | | measuring 7-10 mm in | | | | | | size. 3. 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 | | | | | | 4. Left | | | | | | acromioclavicular joint | | | | | | is normal. 5. Mild | | | | | | degenerative change, | | | | | | right acromioclavicular | | | | | | joint. END OF | | | | | | IMPRESSION: | | | | + + + + + + + + | Specimen | + + | | + + + +---------+ + + | Performing | Address | City/State/Zipcode | Phone Number | | Organization | | | | + +---------+ + + | [facility] DEPARTMENT OF | | | | | RADIOLOGY | | | | + +---------+ + + CT EXT UPR LT WO CONTRAST (03/31/2001 12:10 PM PST) + + + + + + | Component | Value | Ref Range | Performed | Pathologist | | | | | At | Signature | + + + + + + | CT EXT UPR | Radiologist 1: KOKO, | | | | | LT WO | Tim BRODERICK | | | | | [place]EN[place] | Larry-Radiologist 2: | | | | | | MURRAY PERKINS M.D.CT OF | | | | | | RIGHT SHOULDER WITH | | | | | | SAGITTAL AND | | | | | | CORONAL REFORMATIONS: | | | | | | 03/31/2001CT OF LEFT | | | | | | SHOULDER WITH SAGITTAL | | | | | | AND | | | | | | CORONAL REFORMATIONS: | | | | | | 03/31/2001Dictated | | | | | | 04/03/2001 CLINICAL: | | | | | | Left shoulder pain. | | | | | | COMPARISON STUDY: | | | | | | Axillary view, left | | | | | | shoulder, 03/31/01. | | | | | | TECHNICAL FACTORS: 3 | | | | | | mm axial imaging was | | | | | | performed at 2 | | | | | | mmintervals. A small | | | | | | field of view was used | | | | | | and each shoulder | | | | | | wastargeted | | | | | | separately. Sagittal | | | | | | and coronal reformatted | | | | | | images areobtained | | | | | | bilaterally; No IV | | | | | | contrast was given. | | | | | | FINDINGS: RIGHT | | | | | | SHOULDER: There is | | | | | | minimal degenerative | | | | | | change in the | | | | | | rightacromioclavicular | | | | | | joint with very mild | | | | | | inferior spurring of | | | | | | theclavicle. The | | | | | | subacromial joint space | | | | | | is at 6 mm, the lower | | | | | | limits | | | | | | ofnormal. Glenohumera | | | | | | l joint space is | | | | | | well-maintained. No | | | | | | fracture orsubluxation | | | | | | is identified. There | | | | | | are minimal subchondral | | | | | | cyst-likechanges in the | | | | | | greater and lesser | | | | | | tuberosities of the | | | | | | humerus. Noother | | | | | | degenerative changes are | | | | | | identified. No loose | | | | | | body is seen. The | | | | | | acromion is of a Type II | | | | | | appearance. No focal | | | | | | rotator cuffdeficit is | | | | | | identified. LEFT | | | | | | SHOULDER: There is | | | | | | advanced degenerative | | | | | | joint disease in theleft | | | | | | glenohumeral | | | | | | joint. There are | | | | | | prominent glenoid and | | | | | | humeral headosteophytes | | | | | | with reciprocal shaping | | | | | | of both the articulating | | | | | | humerusand | | | | | | glenoid. There is | | | | | | complete loss of joint | | | | | | space with a bone onbone | | | | | | | | | | | | appearance. Osteophyt | | | | | | es effectively increase | | | | | | the height of | | | | | | thearticulating humeral | | | | | | head and the humeral | | | | | | head is slightly | | | | | | inferiorlysubluxed in | | | | | | relation to the | | | | | | glenoid. There is | | | | | | deformity and | | | | | | milddownsloping of the | | | | | | glenoid in association | | | | | | with reciprocal | | | | | | shaping.Several of the | | | | | | marginal osteophytes are | | | | | | large and | | | | | | pedunculated. In | | | | | | atleast two areas, loose | | | | | | bodies are suspected | | | | | | measuring 7-10 | | | | | | mm. Theseare seen at | | | | | | the inferior margin of | | | | | | the glenohumeral | | | | | | joint. There | | | | | | isextensive subchondral | | | | | | sclerosis in the humeral | | | | | | head. There is | | | | | | mildcontour deformity in | | | | | | the humeral neck region | | | | | | suggesting old | | | | | | healedfracture. No | | | | | | recent fracture is | | | | | | identified. The | | | | | | acromioclavicular joint | | | | | | is | | | | | | normal. Subacromial | | | | | | joint space | | | | | | ismaintained. There is | | | | | | increased retroversion | | | | | | of the left glenoid when | | | | | | compared tothe | | | | | | right. Direct | | | | | | measurement is difficult | | | | | | secondary to exclusion | | | | | | ofthe medial border of | | | | | | the scapula which is | | | | | | normally used | | | | | | formeasurement. It is | | | | | | difficult to determine | | | | | | whether left | | | | | | glenoidretroversion is | | | | | | developmental or | | | | | | acquired. The left | | | | | | acromioclavicular joint | | | | | | is normal and the left | | | | | | acromion is ofa Type II | | | | | | appearance. IMPRESSION: | | | | | | 1. 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 There is a | | | | | | bone on bone appearance | | | | | | withextensive marginal | | | | | | osteophyte formation as | | | | | | described above. | | | | | | 2. Probable small | | | | | | loose bodies adjacent to | | | | | | the inferior | | | | | | leftglenohumeral joint | | | | | | measuring 7-10 mm in | | | | | | size. 3. 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 | | | | | | 4. Left | | | | | | acromioclavicular joint | | | | | | is normal. 5. Mild | | | | | | degenerative change, | | | | | | right acromioclavicular | | | | | | joint. END OF | | | | | | IMPRESSION: | | | | + + + + + + + + | Specimen | + + | | + + + +---------+ + + | Performing | Address | City/State/Zipcode | Phone Number | | Organization | | | | + +---------+ + + | [facility] DEPARTMENT OF | | | | | RADIOLOGY | | | | + +---------+ + + SHOULDER, 1 VIEW (03/31/2001 10:18 AM PST) + + + + + + | Component | Value | Ref Range | Performed | Pathologist | | | | | At | Signature | + + + + + + | SHOULDER, 1 | Radiologist 1: | | | | | VIEW | ARNOLD HUBER, | | | | | | M.D.LEFT GLENOHUMERAL | | | | | | JOINT | | | | | | RADIOGRAPH: | | | | | | 1 Dictated 04/01/2001 | | | | | | TECHNIQUE: Single | | | | | | axillary view. | | | | | | FINDINGS: There is | | | | | | marked narrowing of the | | | | | | glenohumeral joint | | | | | | withmarginal spurring of | | | | | | both the glenoid and | | | | | | particularly the | | | | | | humeralhead. There is | | | | | | some possible deformity | | | | | | of the humeral head, | | | | | | perhapsindicating | | | | | | previous trauma. | | | | | | IMPRESSION: On this | | | | | | single limited axillary | | | | | | view, glenohumeral | | | | | | degenerative | | | | | | jointdisease is | | | | | | seen. Please see the | | | | | | recent CT of the left | | | | | | glenohumeraljoint for | | | | | | further evaluation. | | | | | | END OF IMPRESSION: | | | | + + + + + + + + | Specimen | + + | | + + + +---------+ + + | Performing | Address | City/State/Zipcode | Phone Number | | Organization | | | | + +---------+ + + | [facility] DEPARTMENT OF | | | | | RADIOLOGY | | | | + +---------+ + + documented in this encounter Visit Diagnoses Not on filedocumented in this encounter
--- OUTSIDE RECORDS SUMMARY | ~2018-09-22 | XMS | Encounter Summary ---
Demographics + + + | Address | [address] | | | [place] [address] | + + + | Home Phone | | + + + | Preferred Language | Unknown | + + + | Marital Status | | + + + | Pentecostal Affiliation | UNK | + + + | Race | White | + + + | Ethnic Group | Not or | + + + Author + + + | Author | [facility] | + + + | Organization | [facility] | + + + | Address | Unknown | + + + | Phone | Unavailable | + + + Support + + +---------+ + | Name | Relationship | Address | Phone | + + +---------+ + | Ria Zaidi | ECON | Unknown | | + + +---------+ + Care Team Providers + +------+ + | Care Photostatic Copy Maker Name | Role | Phone | + [...] | | | | [facility] | [facility] | | | | | Mailcode: [id number] | [place], [place] | | | | | [facility] | [address] | | | | | [place], [place] | [phone] | | | | | [address] | | | | | | [phone] | | | +--------+ + + + [...] | + + + + + | [facility] | [address] | [place] [address] | | | PATHOLOGY | [address] | | | + + + + + | [facility] | [facility] | [place] [address] | | | PATHOLOGY | [address] [...] + + + + | PRODUCT | [id number] | | [facility] | | | UNIT [...] | [address] | [place], [place] [address] | | | PATHOLOGY | [address] | | | + + + + + | [facility] DEPARTMENT [facility] | [address] | [place] [address] | | | PATHOLOGY | [address] [...] + + + + | PRODUCT | [id number] | | [facility] | | | UNIT [...] + | [facility] | [address] | [place] [address] | | | PATHOLOGY | [address] | | | + + + + + | [facility] | [address] | [place] [address] | | | PATHOLOGY | [address] [...] | + + + + + | [facility] | [address] | [place] [address] | | | PATHOLOGY | [address] | | | + + + + + | [facility] | [address] | [place] [address] | | | PATHOLOGY | [address] [...] | | + +---------+ + + | [facility] DEPARTMENT OF | | | | [...] | | + +---------+ + + | [facility] DEPARTMENT OF | | | | [...] | | + +---------+ + + | [facility] DEPARTMENT OF | | | | | RADIOLOGY | | | | + +---------+ + + documented in this encounter Visit Diagnoses Not on filedocumented in this encounter
--- OUTSIDE RECORDS SUMMARY | ~2018-09-22 | XMS | Encounter Summary ---
Demographics + + + | Address | [address] | | | [place] [address] | + + + | Home Phone | | + + + | Preferred Language | Unknown | + + + | Marital Status | | + + + | Orthodoxy Affiliation | UNK | + + + | Race | White | + + + | Ethnic Group | Not or | + + + Author + + + | Author | [facility] | + + + | Organization | [facility] | + + + | Address | Unknown | + + + | Phone | Unavailable | + + + Support + + +---------+ + | Name | Relationship | Address | Phone | + + +---------+ + | Ria Zaidi | ECON | Unknown | | + + +---------+ + Care Team Providers + +------+ + | Care Meringuer Name | Role | Phone | + +------+ + PCP | Unavailable | + +------+ + Encounter Details +--------+ + + + + | Date | Type | Department | Care Team | Description | +--------+ + + + + | 05/26/ | Office | [facility] | Note, [...] as of this encounter Progress Notes Interface, Education Department Chair In - 01/12/2006 3:07 AM PDTCLINIC DATE: 05/26/2001 OR[facility]IC CLINIC The patient had phoned today requesting a refill on his oxycodone. A script was handwritten today Dr. Nikunj Duran for oxycodone #60 and mailed to the patient's home address. Kelvin Garcia M.D. / [id number] / [id number] / [id number] / [id number] C: 07/19/2001 hkh A M PDTdocumented in this encounter Plan of Treatment Not on filedocumented as of this encounter Visit Diagnoses Not on filedocumented in this encounter"
--- OUTSIDE RECORDS SUMMARY | ~2018-09-22 | XMS | Encounter Summary ---
Demographics + + + | Address | [address] | | | [place] [address] | + + + | Home Phone | | + + + | Preferred Language | Unknown | + + + | Marital Status | | + + + | Lutheran Affiliation | UNK | + + + | Race | White | + + + | Ethnic Group | Not or | + + + Author + + + | Author | [facility] | + + + | Organization | [facility] | + + + | Address | Unknown | + + + | Phone | Unavailable | + + + Support + + +---------+ + | Name | Relationship | Address | Phone | + + +---------+ + | Ria Zaidi | ECON | Unknown | | + + +---------+ + Care Team Providers + +------+ + | Care Shoe Cementer Name | Role | Phone | + [...] [address] | | | | | [facility] | [facility] | | | | | Mailcode: [id number] | [place], [place] | | | | | [facility] | [address] | | | | | [place], [place] | [phone] | | | | | [address] | | | | | | [phone] | | | +--------+ + + + [...] | + + + + + | [facility] | [address] | [place] [address] | | | PATHOLOGY | [address] | | | + + + + + | [facility] | [facility] [address] [address] | [place] [address] | | | PATHOLOGY | [address] [...] + + + + | PRODUCT | [id number] | | [facility] | | | UNIT [...] | [address] | [place], [place] [address] | | | PATHOLOGY | [address] | | | + + + + + | [facility] DEPARTMENT OF | [address] | [place] [address] | | | PATHOLOGY | [address] [...] + + + + | PRODUCT | [id number] | | [facility] | | | UNIT [...] + | [facility]PARTMENT [facility] | [address] | [place] [address] | | | PATHOLOGY | [address] | | | + + + + + | [facility] | [address] [facility] [address] | [place] [address] | | | PATHOLOGY | [address] [...] | + + + + + | [facility] | [address] [facility] [address] [address] | [place] [address] | | | PATHOLOGY | [address] | | | + + + + + | [facility] | [address] | [place] [address] | | | PATHOLOGY | [address] [...] | | + +---------+ + + | [facility] DEPARTMENT OF | | | | | [...] | | + +---------+ + + | [facility] DEPARTMENT OF | | | | | [...] | | + +---------+ + + | [facility] DEPARTMENT OF | | | | | RADIOLOGY | | | | + +---------+ + + documented in this encounter Visit Diagnoses Not on filedocumented in this encounter
--- OUTSIDE RECORDS SUMMARY | ~2018-09-22 | XMS | Encounter Summary ---
Demographics + + + | Address | [address] | | | [place] [address] | + + + | Home Phone | | + + + | Preferred Language | Unknown | + + + | Marital Status | | + + + | Jainism Affiliation | UNK | + + + | Race | White | + + + | Ethnic Group | Not or | + + + Author + + + | Author | [facility] | + + + | Organization | [facility] | + + + | Address | Unknown | + + + | Phone | Unavailable | + + + Support + + +---------+ + | Name | Relationship | Address | Phone | + + +---------+ + | Ria Zaidi | ECON | Unknown | | + + +---------+ + Care Team Providers + +------+ + | Care Procurement Professional Name | Role | Phone | + [...] | [address] | [facility], | | | | | [facility] | [place] [address] | | | | | Mail[address]: [address] | [phone] | | | | | [facility] | | | | | | [place], [place] | | | | | | [address] | | | | | | [phone] | | | +--------+ + + + [...] | | + +---------+ + + | [facility] DEPARTMENT OF | | | | | RADIOLOGY | | | | + +---------+ + + documented in this encounter Visit Diagnoses Not on filedocumented in this encounter"
--- OUTSIDE RECORDS SUMMARY | ~2018-09-22 | XMS | Encounter Summary ---
Demographics + + + | Address | [address] | | | [place] [address] | + + + | Home Phone | | + + + | Preferred Language | Unknown | + + + | Marital Status | | + + + | Denominational Affiliation | UNK | + + + | Race | White | + + + | Ethnic Group | Not or | + + + Author + + + | Author | [facility] | + + + | Organization | [facility] | + + + | Address | Unknown | + + + | Phone | Unavailable | + + + Support + + +---------+ + | Name | Relationship | Address | Phone | + + +---------+ + | Ria Zaidi | ECON | Unknown | | + + +---------+ + Care Team Providers + +------+ + | Care Scrap Baler Name | Role | Phone | + +------+ + PCP | Unavailable | + +------+ + Encounter Details +--------+ + + + + | Date | Type | Department | Care Team | Description | +--------+ + + + + | 08/14/ | Office | [facility] | Note, [...] as of this encounter Progress Notes Interface, C D Still Operator In - 01/08/2006 1:10 AM PDTCLINIC DATE: 08/14/2001 ORTHOPEDIC CLINIC This patient returns for a 3-month followup of left total shoulder arthroplasty. He has backed off a fair bit on his formal therapy as prescribed. However, he is quite pleased with the range of motion he has. This measures a 120 degrees elevation, 30 degrees external rotation and internal rotation to L5. He also has returned to most of his normal activities and finds that he has gradually improving strength and no discomfort. Overall, he is very pleased with the results. I believe that the patient likely can gain some further range of motion, and I encouraged him to continue with the stretching exercises in particular. I believe that the rubber bands may also provide him some further benefit. He will try to return to some of these exercises. Within his pain tolerance, he can return to all of his normal activities at this point. I will see him back in clinic in 3 month's time with repeat radiographs AP, internal and external rotation, and axillary lateral. Mohan Tapia M.D. ESTELA / [id number] [id number] / [id number] / [id number] / Tdocumented in this encounter Plan of Treatment Not on filedocumented as of this encounter Visit Diagnoses Not on filedocumented in this encounter"
--- OUTSIDE RECORDS SUMMARY | ~2018-09-22 | XMS | Encounter Summary ---
Demographics + + + | Address | [address] | | | [place] [address] | + + + | Home Phone | | + + + | Preferred Language | Unknown | + + + | Marital Status | | + + + | Mormonism Affiliation | UNK | + + + | Race | White | + + + | Ethnic Group | Not or | + + + Author + + + | Author | [facility] [place] | + + + | Organization | [facility] [place] | + + + | Address | Unknown | + + + | Phone | Unavailable | + + + Support + + +---------+ + | Name | Relationship | Address | Phone | + + +---------+ + | Ria Zaidi | ECON | Unknown | | + + +---------+ + Care Team Providers + +------+ + | Care Shoe Parts Caser Name | Role | Phone | + +------+ + PCP | Unavailable | + +------+ + Encounter Details +--------+ + + + + | Date | Type | Department | Care Team | Description | +--------+ + + + + | 11/20/ | Results | Orthopaedics at | Mohan Tapia MD | | | 2001 | Only | [facility] [address] | [address] | | | | | [facility] | [facility] | | | | | Mail[address]: [address] | [place], [place] | | | | | [facility] | [address] | | | | | [place], [place] | [phone] | | | | | [address] | | | | | | [phone] | | | +--------+ + + + [...] | X-RAY SHOULDER 3+ | Routin | 11/20/2001 | | Results for this | | VIEWS LEFT | e | 11:04 AM | | procedure are in the | | | | PDT | | results section. | + +--------+ + + + documented in this encounter Results SHOULDER 3+ VIEWS LEFT (11/20/2001 11:04 AM PDT) + + + + + + | Component | Value | Ref Range | Performed | Pathologist | | | | | At | Signature | + + + + + + | SHOULDER 3+ | Radiologist 1: | | | | | VIEWS LEFT | ARNOLD HUBER, | | | | | | M.D.-Radiologist 2: | | | | | | ARNOLD HUBER, | | | | | | M.D.LEFT SHOULDER - AP, | | | | | | LATERAL, AND AXIAL | | | | | | VIEWS: 11/20/2001 | | | | | | DICTATED: 11/21/2001 | | | | | | HISTORY: A | | | | | | 65-year-old male with | | | | | | joint pain. | | | | | | COMPARISON: | | | | | | 2. FINDINGS: The left | | | | | | humeral head has been | | | | | | resected and a | | | | | | unipolarhumeral head | | | | | | prosthesis is in place. | | | | | | There is no evidence of | | | | | | hardwareloosening or | | | | | | complication. The | | | | | | humeral head prosthesis | | | | | | is well-seatedwithin the | | | | | | flattened and sclerosed | | | | | | glenoid. There is | | | | | | normalrelationship | | | | | | between the prosthesis | | | | | | and the acromion. There | | | | | | is mildnarrowing of the | | | | | | acromioclavicular joint | | | | | | space. IMPRESSION: | | | | | | 1. Status post left | | | | | | shoulder unipolar | | | | | | replacement with no | | | | | | evidence ofhardware | | | | | | loosening or | | | | | | complication. | | | | | | 2. 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 END OF | | | | | | IMPRESSION: | | | | + + + + + + + + | Specimen | + + | | + + + +---------+ + + | Performing | Address | City/State/Zipcode | Phone Number | | Organization | | | | + +---------+ + + | [facility] DEPARTMENT OF | | | | | RADIOLOGY | | | | + +---------+ + + documented in this encounter Visit Diagnoses Not on filedocumented in this encounter"
--- OUTSIDE RECORDS SUMMARY | ~2018-09-22 | XMS | Clinical Summary ---
Demographics + + + | Address | [address] | | | [place] [address] | + + + | Home Phone | | + + + | Preferred Language | Unknown | + + + | Marital Status | | + + + | Orthodox Affiliation | Unknown | + + + | Race | Unknown | + + + | Ethnic Group | Unknown | + + + Author + + + | Author | [facility] | + + + | Organization | [facility] | + + + | Address | Unknown | + + + | Phone | Unavailable | + + + Support + + + + + | Name | Relationship | Address | Phone | + + + + + | Ria Wise | ECON | [address] | | | | | [place] | | | | | [address] | | + + + + + | Melissa/Jos Estevez | ECON | Unknown | | + + + + + Care Team Providers + +------+ + | Care Aoc Operations Intelligence Chief Name | Role | Phone | + +------+ + | Lorenzo De La O MD | PP | | + +------+ + Allergies No Known Allergies Current Medications No known medications Active Problems + + + | Problem | Noted Date | + + + | Traumatic subarachnoid hemorrhage | 08/20/2014 | + + + | S/P AVR | 08/20/2014 | + + + | Rib fractures, 1st anterior, 2nd A/P, 4th posterior | 08/20/2014 | + + + | Brain contusion | 08/20/2014 | + + + | Traumatic intraventricular hemorrhage with loss of consciousness | 08/20/2014 | | (HCC) | | + + + Resolved Problems + + + + | Problem | Noted | Resolved | | | Date | Date | + + + + | Other acute pain | 08/21/19 | | | | 15 | 5 | + + + + | Anemia | 08/21/19 | | | | 15 | 5 | + + + + | Syncope and collapse | 08/21/19 | | | | 15 | 5 | + + + + Social History + +-------+ +--------+------+ | Tobacco Use | Types | Packs/Day | Years | Date | | | | | Used | | + +-------+ +--------+------+ | Never Smoker | | | | | + +-------+ +--------+------+ + + + | Sex Assigned at | Date Recorded | | | | + + + | Not on file | | + + + Last Filed Vital Signs + + + + | Vital Sign | Reading | Time Taken | + + + + | Blood Pressure | 107/65 | 08/23/2014 7:29 AM PDT | + + + + | Pulse | 81 | 08/23/2014 7:29 AM PDT | + + + + | Temperature | 36.7 C (98 F) | 08/23/2014 7:29 AM PDT | + + + + | Respiratory Rate | 18 | 08/23/2014 7:29 AM PDT | + + + + | Oxygen Saturation | 95% | 08/23/2014 7:29 AM PDT | + + + + | Inhaled Oxygen | - | - | | Concentration | | | + + + + | Weight | 78.1 kg (172 lb 2.9 | 08/23/2014 3:55 AM PDT | | | oz) | | + + + + | Height | 180.3 cm (5' 10.98") | 08/19/2014 11:30 PM PDT | + + + + | Body Mass Index | 24.02 | 08/23/2014 3:55 AM PDT | + + + + Plan of Treatment + + + + + | Health Maintenance | Due Date | Last Done | Comments | + + + + + | Vaccine: | | | | | Dtap/Tdap/Td (1 - | 4 | | | | Tdap) | | | | + + + + + | Vaccine: Zoster (1 | | | | | of 2) | 5 | | | + + + + + | Vaccine: | | | | | Pneumococcal 65+ | 0 | | | | Low/Medium Risk (1 | | | | | of 2 - PCV13) | | | | + + + + + | Vaccine: Influenza | | | | | (Season Ended) | 9 | | | + + + + + Results Not on filefrom Last 3 Months Insurance + +--------+ +------+-------+ + | Payer | Benefi | Subscriber | Type | Phone | Address | | | t Plan | ID | | | | | | / | | | | | | | Group | | | | | + +--------+ +------+-------+ + | MEDICARE | MEDICA | [id number] | | | [address] | | | [place] | | | | [place] [phone] | | | IP-OP | | | | | + +--------+ +------+-------+ + | [employer] | ODS | [id number] | | | | | | HEALTH | | | | | | | PLAN | | | | | + +--------+ +------+-------+ + + +--------+ +--------+ + + | Guarantor Name | Accoun | Relation to | Date | Phone | Billing Address | | | t Type | Patient | of | | | | | | | | | | + +--------+ +--------+ + + | ZAKIA WISE | Person | Self [birth year] Home: | [address] | | | al/Fam | | [phone] | [phone] [place] | | | wendy | | | [phone] | [phone] | + +--------+ +--------+ + +
--- OUTSIDE RECORDS SUMMARY | ~2018-09-22 | XMS | Encounter Summary ---
Demographics + + + | Address | [address] | | | [place] [address] | + + + | Home Phone | | + + + | Preferred Language | Unknown | + + + | Marital Status | | + + + | Caodaism Affiliation | UNK | + + + | Race | White | + + + | Ethnic Group | Not or | + + + Author + + + | Author | [facility] | + + + | Organization | [facility] | + + + | Address | Unknown | + + + | Phone | Unavailable | + + + Support + + +---------+ + | Name | Relationship | Address | Phone | + + +---------+ + | Ria Zaidi | ECON | Unknown | | + + +---------+ + Care Team Providers + +------+ + | Care Polymer Engineer Name | Role | Phone | + +------+ + PCP | Unavailable | + +------+ + Encounter Details +--------+ + + + + | Date | Type | Department | Care Team | Description | +--------+ + + + + | 09/10/ | Hospital | Dermatopathology | | | | 2013 | Encounter | [address] | | | | | | Mail Code: CH16D | | | | | | [facility] | | | | | | and Healing, [address] | | | | | | [place], [place] | | | | | | [address] | | | | | | [phone] | | | +--------+ + + + [...] | + +--------+ + + + | DERM PATHOLOGY | Routin | 09/10/2013 | | Results for this | | | e | | | procedure are in the | | | | | | results section. | + +--------+ + + + documented in this encounter Results DERM PATHOLOGY (09/10/2013) + + + + + + | Component | Value | Ref Range | Performed | Pathologist | | | | | At | Signature | + + + + + + | DERMATOPATH | SOURCE OF SPECIMEN:A Rt. | | [facility] | | | OLOGY(WET | lateral forehead at | | DERMATOPATH | | | MNT) | hairline, shave | | OLOGY | | | | biopsy CLINICAL | | | | | | DESCRIPTION:3x4 mm dark | | | | | | brown macule; r/o | | | | | | atypical nevus. | | | | | | GROSS | | | | | | DESCRIPTION:Received in | | | | | | formalin is a specimen | | | | | | labeled [place], | | | | | | Edd:A: Specimen is | | | | | | labeled "R lateral | | | | | | forehead" and consists | | | | | | of an irregularshave of | | | | | | brown skin, [id number]. The | | | | | | surgical margin is | | | | | | inked black; thetissue | | | | | | is bisected, and | | | | | | entirely submitted in | | | | | | cassette A1. | | | | | | MICROSCOPIC | | | | | | DESCRIPTION:In the right | | | | | | lateral forehead at | | | | | | hairline biopsy, there | | | | | | is epidermalhyperplasia | | | | | | with horn pseudocysts, | | | | | | interweaving of the | | | | | | rete, and nuclei | | | | | | ofuniform size and | | | | | | shape. 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 NOTE: | | | | | | There is no evidence of | | | | | | a melanocytic | | | | | | proliferation in | | | | | | thesesections. | | | | | | | | | | | | CRW:mm/ My | | | | | | electronic signature | | | | | | indicates that I have | | | | | | personally reviewed | | | | | | alldiagnostic slides, | | | | | | the gross and/or | | | | | | microscopic portion of | | | | | | thisreport and | | | | | | formulated the final | | | | | | diagnosis. | | | | | | Rendering | | | | | | Diagnostician: Con | | | | | | n Belle Licona Jr., | | | | | | M.ClementinePathologistElectroni | | | | | | rufino Signed | | | | | | 09/13/2013 1:27PM | | | | + + + + + + + + | Specimen | + + | | + + + + + + + | Performing | Address | City/State/Zipcode | Phone Number | | Organization | | | | + + + + + | [facility] | [address] | [place] [address] | | | DERMATOPATHOLOGY | [address] | | | + + + + + documented in this encounter Visit Diagnoses Not on filedocumented in this encounter
--- OUTSIDE RECORDS SUMMARY | ~2018-09-22 | XMS | Encounter Summary ---
Demographics + + + | Address | [address] | | | [place] [address] | + + + | Home Phone | | + + + | Preferred Language | Unknown | + + + | Marital Status | | + + + | Evangelical Affiliation | UNK | + + + | Race | White | + + + | Ethnic Group | Not or | + + + Author + + + | Organization | Unknown | + + + | Address | Unknown | + + + | Phone | Unavailable | + + + Support + + +---------+ + | Name | Relationship | Address | Phone | + + +---------+ + | Ria Wise | ECON | Unknown | | + + +---------+ + Care Team Providers + +------+ + | Care Lobby Attendant Name | Role | Phone | + +------+ + PCP | Unavailable | + +------+ + Encounter Details +--------+ + + + + | Date | Type | Department | Care Team | Description | +--------+ + + + + | 04/08/ | Transcribed | | Dictation, Other | Transcribed | | 2001 | | | | | +--------+ + + [...] as of this encounter Progress Notes Interface, Web Support Engineer In - 01/24/2006 3:02 AM PDT [place] [address] [address] [address] FAX Department of Orthopaedics[facility] [id number] April 08, 2001 Lorenzo De La O M.D. [address] [place] [address] RE: ZAKIA WISE MR #: [id number] DOS: 03/31/[address] De La O: Thank you for asking me to see this 65-year-old right hand dominant male for assessment of left shoulder pain of many years duration. The patient recalls a fracture dislocation of his left shoulder when he was 15 years old. This was treated in a body cast for 6 weeks, and he was told that it developed into a malunion. Since that time, he has never been able to reach behind his back effectively due to stiffness. He has also always had some mild level of pain in the shoulder. Over recent years, the pain has been gradually worsening. He finds that the pain is exacerbated when lying on the left side. It is actually a little bit relieved with light use. The patient's past medical history is negative, and he has past surgical history of 2 hernia repairs and a tonsillectomy. He has a family history of asthma, and his review of systems is positive for hearing changes. He denies use of tobacco, alcohol, or illicit drugs. His current medications include antacids, vitamin and mineral supplements, and glucosamine and chondroitin. He has no known allergies. 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 On physical exam, the patient appeared his stated age and in good general health and in no apparent distress. He had normal contour and symmetry of the upper extremities with no ecchymosis, swelling, or muscular atrophy. His blood pressure is 132/62, and his pulse is 60. He had normal spinal alignment and equal shoulder heights. Neck range of motion was normal with no spinal or paraspinal pain or tenderness. The range of motion of his left shoulder measured 120 degrees elevation, zero degrees external rotation and internal rotation to the greater trochanter compared to right shoulder motion of 150/30/59 respectively. The patient had a well-healed incision across the anterior aspect of the left shoulder. There is no erythema or drainage. He had a small area of anterior deltoid deficiency but had 5/5 motor power of the supra and infraspinatus, subscapularis, and anterior and middle deltoid. He had pain and tenderness along the anterior and posterior glenohumeral joint line and marked crepitus with any motion. Distal neurovascular examination was unremarkable. X-rays reviewed include AP and lateral views of the left shoulder. This demonstrates advanced degenerative change of the glenohumeral joint with what appears to be some posterior erosion of the glenoid. There also appears to be evidence of a previous fracture malunion with the fracture in abnormal varus angulation. 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 Other than conservative therapy of avoidance of aggravating activities, analgesics and gentle stretches, the other option would be to proceed with a total shoulder arthroplasty. I counseled him that this would likely dramatically improve his pain and may improve his range of motion somewhat as well. It would not be a standard arthroplasty procedure due to the varus deformity that will need to be accommodated for when placing the humeral component. I believe that glenoid component will most likely be necessary due to what appears to be a significant glenoid erosion. We will make arrangements for a CT scan to better define the anatomy. The risks and benefits of surgery were discussed in detail, and the patient expressed the desire to proceed. We will therefore contact him to make these arrangement according to his wishes. Thank you once again for asking me to participate in this patient's care. Sincerely, Mohan Tapia M.D. Rigoberto / [id number] / [id number] / [id number] / Tdocumented in this encounter Plan of Treatment Not on filedocumented as of this encounter Visit Diagnoses Not on filedocumented in this encounter"
--- OUTSIDE RECORDS SUMMARY | ~2018-09-22 | XMS | Clinical Summary ---
Demographics + + + | Address | [address] | | | [place] [address] | + + + | Home Phone | | + + + | Preferred Language | Unknown | + + + | Marital Status | | + + + | Buddhist Affiliation | UNK | + + + [...] Team Providers + +------+ + | Care Air Bag Stripper Name | Role | Phone | + +------+ + PP | Unavailable | + +------+ + Source Comments JOHN is fully live on both [facility] Ambulatory and [facility] InPatient.[facility] Allergies Not on File Medications Not [...] | | | | | | | [address] | | + +--------+ +--------+ + +--------+ [...] | 1936 | [phone] | [place] [address] | | | [place]y | | | 5 (Home) | | + +--------+ +--------+ + +"
--- OUTSIDE RECORDS SUMMARY | ~2018-09-22 | XMS | Encounter Summary ---
Demographics + + + | Address | [address] | | | [place] [address] | + + + | Home Phone | | + + + | Preferred Language | Unknown | + + + | Marital Status | | + + + | Judaism Affiliation | UNK | + + + | Race | White | + + + | Ethnic Group | Not or | + + + Author + + + | Author | [facility] | + + + | Organization | [facility] | + + + | Address | Unknown | + + + | Phone | Unavailable | + + + Support + + +---------+ + | Name | Relationship | Address | Phone | + + +---------+ + | Ria Zaidi | ECON | Unknown | | + + +---------+ + Care Team Providers + +------+ + | Care Woodworking Machine Feeder Name | Role | Phone | + [...] as of this encounter Progress Notes Interface, Mission Commander In - 01/12/2006 3:07 AM PDTCLINIC DATE: 05/26/2001 OR[facility] CLIN[facility] The patient had phoned today requesting a refill on his oxycodone. A script was handwritten today Dr. Nikunj Duran for oxycodone #60 and mailed to the patient's home address. Kelvin Garcia M.D. / [id number] / [id number] / [id number] / [id number] C: 07/19/2001 hkh A M PDTdocumented in this encounter Plan of Treatment Not on filedocumented as of this encounter Visit Diagnoses Not on filedocumented in this encounter"
--- OUTSIDE RECORDS SUMMARY | ~2018-09-22 | XMS | Encounter Summary ---
Demographics + + + | Address | [address] | | | [place] [address] | + + + | Home Phone | | + + + | Preferred Language | Unknown | + + + | Marital Status | | + + + | Worship Affiliation | UNK | + + + | Race | White | + + + | Ethnic Group | Not or | + + + Author + + + | Author | [facility] | + + + | Organization | [facility] | + + + | Address | Unknown | + + + | Phone | Unavailable | + + + Support + + +---------+ + | Name | Relationship | Address | Phone | + + +---------+ + | Ria Zaidi | ECON | Unknown | | + + +---------+ + Care Team Providers + +------+ + | Care Zipper Cutter Name | Role | Phone | + +------+ + PCP | Unavailable | + +------+ + Encounter Details +--------+ + + + + | Date | Type | Department | Care Team | Description | +--------+ + + + + | 11/20/ | Office | [facility] | Note, [...] as of this encounter Progress Notes Interface, Verifying Machine Operator In - 12/26/2005 3:10 AM PDTCLINIC DATE: 11/20/2001 ORTHOPEDIC CLINIC SUBJECTIVE: This patient returns for a 6-month followup of the left total shoulder arthroplasty. His range of motion has not improved significantly and measures 120 degrees elevation, 40 degrees external rotation, and internal rotation to L5. He, however, states that he has done very little exercise with the arm in recent months given an extensive travel schedule. He also notes that weakness persists in the shoulder. He, however, is nearly pain-free and is quite pleased with results in this regard. LABORATORY DATA: Followup x-rays include AP internal and external rotation and axillary lateral views of left shoulder. These show the implants to be well positioned and concentrically reduced with no interval change. IMPRESSION: This patient is doing fairly well although I tried to encourage him to restart his therapy on a dedicated basis. Instruction in his exercise program was again provided by myself and the office staff. He has all the equipments including instruction manual and videotape at home. It was emphasized to him that this program can be done even on the road as the whole program is very portable. All of these exercises were also demonstrated to him in the presence of his for further reinforcement. I asked him to return for a followup in another 3 months' time with repeat x-rays, AP internal/external rotation, and axillary lateral of the left shoulder. Mohan Tapia M.D. ESTELA / REY [id number] / [id number] / [id number] / [id number] Tdocumented in this encounter Plan of Treatment Not on filedocumented as of this encounter Visit Diagnoses Not on filedocumented in this encounter"
--- OUTSIDE RECORDS SUMMARY | ~2018-09-22 | XMS | Clinical Summary ---
Demographics + + + | Address | [address] | | | [place] [address] | + + + | Home Phone | | + + + | Preferred Language | Unknown | + + + | Marital Status | | + + + | Scientology Affiliation | Unknown | + + + | Race | Unknown | + + + | Ethnic Group | Unknown | + + + Author + + + | Author | [facility] | + + + | Organization | [facility] | + + + | Address | Unknown | + + + | Phone | Unavailable | + + + Support + + + + + | Name | Relationship | Address | Phone | + + + + + | Ria Wise | ECON | [address] | | | | | [place] | | | | | [address] | | + + + + + | Melissa/Jos Estevez | ECON | Unknown | | + + + + + Care Team Providers + +------+ + | Care Trimmer Operator Three Knife Name | Role | Phone | + [...] +------+-------+ + | MEDICARE | MEDICA | [id number] | | | [address] | | | [place] | | | | [place] [address] | | | IP-OP | | | | | + +--------+ +------+-------+ + | [employer] | ODS | [id number] | | | | | | HEALTH [...] | [place] | | | [address] | [phone] | + +--------+ +--------+ + +
--- OUTSIDE RECORDS SUMMARY | ~2018-09-22 | XMS | Encounter Summary ---
Demographics + + + | Address | [address] | | | [place] [address] | + + + | Home Phone | | + + + | Preferred Language | Unknown | + + + | Marital Status | | + + + | Church Affiliation | UNK | + + + [...] Team Providers + +------+ + | Care Head Of Ict Name | Role | Phone | + +------+ + PCP | Unavailable | + +------+ + Encounter Details +--------+ + + + + | Date | Type | Department | Care Team | Description | +--------+ + + + + | 05/20/ | Discharge | | Summary, Discharge | D/C Summary ODDS | | 2001 | Summary-Tra | | | | | | nscribed | | | | +--------+ + + [...] + + documented as of this encounter Discharge Summaries Interface, Undergraduate Intern In - 01/20/2006 1:[address] [address] [facility] MEDICAL SUMMARY OF HOSPITALIZATION Med Rec No: [id number] Admission Date: 05/17/2001 Name: Edd Zaidi Discharge Date: 05/20/2001 ATTENDING PHYSICIAN:Mohan Tapia M.D. PRINCIPAL FINAL DIAGNOSIS: Post-traumatic osteoarthritis of the left shoulder. ADDITIONAL DIAGNOSIS: None. PRINCIPAL PROCEDURE: Left total shoulder arthroplasty. ADDITIONAL PROCEDURES: 1. Intravenous (IV) analgesics. 2. Physical therapy evaluation and treatment. 3. Occupational therapy evaluation and treatment. REASON FOR ADMISSION: The patient is a 65-year-old white male who has advanced post-traumatic arthritis of the left shoulder resulting from a remote injury. He had undergone conservative therapy with avcidance of aggravating activities, analgesics, and gentle stretches and this did not relieve the pain to a satisfactory extent. The patient elected to have surgical therapy for his problem and was thus admitted. HOSPITAL COURSE: The patient was admitted and underwent a total shoulder arthroplasty on the left side on May 17, 2001. Postoperatively, his pain medications were initially given via patient controlled analgesic (PAC) pump and then later changed to oral medications. Physical therapy and occupational therapy worked with the patient and he participated actively in their exercises. He was kept on intravenous (IV) antibiotics while his Hemovac drain was in place. His Hemovac was removed after 48 hours. Initially postoperatively, he had radial nerve palsy, but this resolved as the intrascalene nerve block wore off. The rest of his postoperative course was unremarkable and he was discharged on postoperative day three. CONDITION ON DISCHARGE: Stable. DISPOSITION: Home. DISCHARGE MEDICATIONS: 1. Oxycodone 5-15 mg p.o. q.4-6.h. p.r.n. pain, #40. 2. Senokot-S 2 tablets p.o. b.i.d. DISCHARGE INSTRUCTIONS: Diet: Normal. Activity: Left upper extremity limited only to pendulum, vadim elevation, ER with stick exercises. Follow up: [facility] with Mohan Tapia M.D. on June 05, 2001, at 11 a.m. Larry Whaley M.D. EC:[id number] cc: FREDERICK CHAVEZ MD [address] [place] [address] [id number] signed by Interface, Undergraduate Intern In at 01/20/2006 1:10 AM PDTdoc umented in this encounter Plan of Treatment Not on filedocumented as of this encounter Visit Diagnoses Not on filedocumented in this encounter"
--- OUTSIDE RECORDS SUMMARY | ~2018-09-22 | XMS | Encounter Summary ---
Demographics + + + | Address | [address] | | | [place] [address] | + + + | Home Phone | | + + + | Preferred Language | Unknown | + + + | Marital Status | | + + + | Uatsdin Affiliation | UNK | + + + | Race | White | + + + | Ethnic Group | Not or | + + + Author + + + | Author | [facility] | + + + | Organization | [facility] | + + + | Address | Unknown | + + + | Phone | Unavailable | + + + Support + + +---------+ + | Name | Relationship | Address | Phone | + + +---------+ + | Ria Zaidi | ECON | Unknown | | + + +---------+ + Care Team Providers + +------+ + | Care Wash Oil Pump Operator Name | Role | Phone | + [...] as of this encounter Progress Notes Interface, Seam Press Operator In - 12/26/2005 3:10 AM PDTCLINIC [...] shoulder. Mohan Tapia M.D. ESTELA / REY [id number] / [id number] / [id number] / [id number] Tdocumented in this encounter Plan of Treatment Not on filedocumented as of this encounter Visit Diagnoses Not on filedocumented in this encounter"
--- OUTSIDE RECORDS SUMMARY | ~2018-09-22 | XMS | Encounter Summary ---
Demographics + + + | Address | [address] | | | [place] [address] | + + + | Home Phone | | + + + | Preferred Language | Unknown | + + + | Marital Status | | + + + | Religion Affiliation | UNK | + + + | Race | White | + + + | Ethnic Group | Not or | + + + Author + + + | Author | [facility] | + + + | Organization | [facility] | + + + | Address | Unknown | + + + | Phone | Unavailable | + + + Support + + +---------+ + | Name | Relationship | Address | Phone | + + +---------+ + | Ria Zaidi | ECON | Unknown | | + + +---------+ + Care Team Providers + +------+ + | Care Pie Maker Name | Role | Phone | [...] as of this encounter Progress Notes Palmer, Barrel Endshake Adjuster In - 01/12/2006 3:07 AM PDTCLINIC DATE: [...] again in 6 weeks. Shayna Alas M.D. [facility] / [id number] / [id number] / [id number] / [id number] Tdocumented in this encounter Plan of Treatment Not on filedocumented as of this encounter Visit Diagnoses Not on filedocumented in this encounter"
--- OUTSIDE RECORDS SUMMARY | ~2018-09-22 | XMS | Encounter Summary ---
Demographics + + + | Address | [address] | | | [place] [address] | + + + | Home Phone | | + + + | Preferred Language | Unknown | + + + | Marital Status | | + + + | Denominational Affiliation | UNK | + + + | Race | White | + + + | Ethnic Group | Not or | + + + Author + + + | Author | [facility] | + + + | Organization | [facility] | + + + | Address | Unknown | + + + | Phone | Unavailable | + + + Support + + +---------+ + | Name | Relationship | Address | Phone | + + +---------+ + | Ria Zaidi | ECON | Unknown | | + + +---------+ + Care Team Providers + +------+ + | Care Otr Tanker Truck Driver Name | Role | Phone | + [...] as of this encounter Progress Notes Interface, Passenger Flagman In - 01/16/2006 1:06 AM PDTCLINIC DATE: [...] shoulder. Mohan Tapia M.D. ESTELA / REY [id number] / [id number] / [id number] / Tdocumented in this encounter Plan of Treatment Not on filedocumented as of this encounter Visit Diagnoses Not on filedocumented in this encounter"
--- OUTSIDE RECORDS SUMMARY | ~2018-09-22 | XMS | Encounter Summary ---
Demographics + + + | Address | [address] | | | [place] [address] | + + + | Home Phone | | + + + | Preferred Language | Unknown | + + + | Marital Status | | + + + | Mormon Affiliation | UNK | + + + | Race | White | + + + | Ethnic Group | Not or | + + + Author + + + | Author | [facility] | + + + | Organization | [facility] | + + + | Address | Unknown | + + + | Phone | Unavailable | + + + Support + + +---------+ + | Name | Relationship | Address | Phone | + + +---------+ + | Ria Zaidi | ECON | Unknown | | + + +---------+ + Care Team Providers + +------+ + | Care Stock Crane Operator Name | Role | Phone | [...] WILDA Shaffer | | | | | [facility] | [facility] | | | | | Mailcode: [address] | [place], [place] | | | | | [facility] | [address] | | | | | [place], [place] | [phone] | | | | | [address] | | | | | | [phone] | | | +--------+ + + + [...]
--- OUTSIDE RECORDS SUMMARY | ~2018-09-22 | XMS | Clinical Summary ---
Demographics + + + | Address | [address] | | | [place] [address] | + + + | Home Phone | | + + + | Preferred Language | Unknown | + + + | Marital Status | | + + + | Orthodoxy Affiliation | Unknown | + + + | Race | Unknown | + + + | Ethnic Group | Unknown | + + + Author + + + | Author | [facility] | | | and [place] | + + + | Organization | [facility] | | | and [place] | + + + | Address | Unknown | + + + | Phone | Unavailable | + + + Support + + +---------+ + | Name | Relationship | Address | Phone | + + +---------+ + | Ria Zaidi | ECON | Unknown | | + + +---------+ + | Jos Zaidi | ECON | Unknown | Unavailable | + + +---------+ + Care Team Providers + +------+ + | Care Telephone Instrument Supervisor Name | Role | Phone | + +------+ + PP | Unavailable | + +------+ + Allergies No Known Allergies Medications + + + +---------+------+------+-------+ | Medication | Sig | Dispensed | Refills | Star | End | Statu | | | | | | t | Date | s | | | | | | Date | | | + + + +---------+------+------+-------+ | alendronate | Take 70 mg by mouth | | 0 | 09/1 | | Activ | | (FOSAMAX) 70 mg | Once a week. | | | 420 | | e | | tablet | | | | 12 | | | + + + +---------+------+------+-------+ | | by mouth twice a day | | 0 | 09/1 | | Activ | | Glucosamine-Chondroi | | | | 20 | | e | | tin-[facility] 500-400-250 | | | | 12 | | | | MG TABS | | | | | | | + + + +---------+------+------+-------+ | amLODIPine | Take 5 mg by mouth | | 0 | 09/1 | | Activ | | (NORVASC) 5 mg | Daily. | | | 420 | | e | | tablet | | | | 12 | | | + + + +---------+------+------+-------+ | Multiple | | | 0 | 09/1 | | Activ | | Vitamins-Minerals | | | | 420 | | e | | (CENTRUM SILVER) | | | | 12 | | | | TABS | | | | | | | + + + +---------+------+------+-------+ | Pyridoxine HCl | Take 100 mg by mouth | | 0 | 09/1 | | Activ | | (VITAMIN B-6) 100 MG | Daily. | | | 4/20 | | e | | tablet | | | | 12 | | | + + + +---------+------+------+-------+ | tocopherol (E-400) | Take 400 Units by | | 0 | 09/1 | | Activ | | 400 units capsule | mouth Daily. | | | 4/20 | | e | | | | | | 12 | | | + + + +---------+------+------+-------+ | Calcium | Take by mouth 3 | | 0 | 09/1 | | Activ | | Carbonate-Vitamin D | times daily. | | | 4/20 | | e | | (CALCIUM + D) | | | | 12 | | | | 600-200 MG-UNIT TABS | | | | | | | + + + +---------+------+------+-------+ | lisinopril | Take 10 mg by mouth | | 0 | 09/1 | | Activ | | (PRINIVIL, ZESTRIL) | Daily. | | | 4/20 | | e | | 10 mg tablet | | | | 12 | | | + + + +---------+------+------+-------+ | Pyridoxine HCl | TABS one by mouth | | 0 | 08/2 | | Activ | | (B-6 PO) | daily | | | 3/20 | | e | | | | | | 10 | | | + + + +---------+------+------+-------+ | Cyanocobalamin | TABS one by mouth | | 0 | 08/2 | | Activ | | (B-12 PO) | daily | | | 3/20 | | e | | | | | | 10 | | | + + + +---------+------+------+-------+ Active Problems + + + | Problem | Noted Date | + + + | HYPERTENSION | | + + + | SKIN LESION | | + + + | OSTEOPOROSIS | | + + + | HYPERLIPIDEMIA | | + + + | ERECTILE DYSFUNCTION, ORGANIC | | + + + | UMBILICAL HERNIA | | + + + | AORTIC VALVE DISORDERS | | + + + + + | Overview: ICD-10 Record update | + + + +---+ | CANDIDAL BALANITIS | | + +---+ Social History + +-------+ +--------+------+ | Tobacco [...] recent travel history available. | + + Last Filed Vital Signs + + + + | Vital Sign | Reading | Time Taken | + + + + | Blood Pressure | 106/50 | 12/22/2009 0000 PDT | + + + + | Pulse | - | - | + + + + | Temperature | - | - | + + + + | Respiratory Rate | - | - | + + + + | Oxygen Saturation | - | - | + + + + | Inhaled Oxygen | - | - | | Concentration | | | + + + + | Weight | 81.2 kg (179 lb) | 12/22/2009 0000 PDT | + + + + | Height | 180.3 cm (5' 11") | 04/05/2001 0000 PST | + + + + | Body Mass Index | 24.97 | 04/05/2001 0000 PST | + + + + Plan of [...]
--- OUTSIDE RECORDS SUMMARY | ~2018-09-22 | XMS | Encounter Summary ---
Demographics + + + | Address | [address] | | | [place] [address] | + + + | Home Phone | | + + + | Preferred Language | Unknown | + + + | Marital Status | | + + + | Bahai Affiliation | UNK | + + + [...] | + + +---------+ + | Ria Zaiid | ECON | Unknown | | + + +---------+ + Care Team Providers + +------+ + | Care Refinisher Name | Role | Phone | + [...] as of this encounter Discharge Summaries Interface, General Farm Hand In - 01/20/2006 1:[address] [address] [facility] MEDICAL SUMMARY OF HOSPITALIZATION Med Rec No: [...] M.D. EC:[id number] cc: FREDERICK CHAVEZ MD [address] [place] [address] [id number] signed by Interface, General Farm Hand In at 01/20/2006 1:10 AM PDTdoc umented in this encounter Plan of Treatment Not on filedocumented as of this encounter Visit Diagnoses Not on filedocumented in this encounter"
--- OUTSIDE RECORDS SUMMARY | ~2018-09-22 | XMS | Clinical Summary ---
Demographics + + + | Address | [address] | | | [place] [address] | + + + | Home Phone | | + + + | Preferred Language | Unknown | + + + | Marital Status | | + + + | Cheondoism Affiliation | UNK | + + + [...] Team Providers + +------+ + | Care Farm Product Purchaser Name | Role | Phone | + +------+ + PP | Unavailable | + +------+ + Source Comments JOHN is fully live on both [facility] and [facility] In[facility] Allergies Not on File Medications Not on [...] | | | | | | | [address] | | + +--------+ +--------+ + +--------+ [...] | 1936 | [phone] | [place] [address] | | | [place] | | | 5 (Home) | | + +--------+ +--------+ + +"
--- OUTSIDE RECORDS SUMMARY | ~2018-09-22 | XMS | Encounter Summary ---
Demographics + + + | Address | [address] | | | [place] [address] | + + + | Home Phone | | + + + | Preferred Language | Unknown | + + + | Marital Status | | + + + | Alevism Affiliation | UNK | + + + | Race | White | + + + | Ethnic Group | Not or | + + + Author + + + | Author | [facility] | + + + | Organization | [facility] | + + + | Address | Unknown | + + + | Phone | Unavailable | + + + Support + + +---------+ + | Name | Relationship | Address | Phone | + + +---------+ + | Ria Zaidi | ECON | Unknown | | + + +---------+ + Care Team Providers + +------+ + | Care Client Manager Large Law Name | Role | Phone | + [...] as of this encounter Progress Notes Interface, Steel Pan Form Placing Supervisor In - 12/08/2005 3:00 AM PDTCLINIC DATE: [...] some length. He will be departing for [place] in about a month, and I suggested that he return to see me in July 2002 when he is back in town. We will repeat radiographs AP internal and external rotation, axillary, lateral of the left shoulder at that time. Mohan Tapia M.D. [facility] / [id number] / [id number] / [id number] / cc: Evan De La O M.D. [address] [place], [place] [id number] signed by Interface, Steel Pan Form Placing Supervisor In at 12/08/2005 3:0 0 AM PDTdocumented in this encounter Plan of Treatment Not on filedocumented as of this encounter Visit Diagnoses Not on filedocumented in this encounter"
--- OUTSIDE RECORDS SUMMARY | ~2018-09-22 | XMS | Encounter Summary ---
Demographics + + + | Address | [address] | | | [place] [address] | + + + | Home Phone | | + + + | Preferred Language | Unknown | + + + | Marital Status | | + + + | Sabianist Affiliation | UNK | + + + | Race | White | + + + | Ethnic Group | Not or | + + + Author + + + | Author | [facility] | + + + | Organization | [facility] | + + + | Address | Unknown | + + + | Phone | Unavailable | + + + Support + + +---------+ + | Name | Relationship | Address | Phone | + + +---------+ + | Ria Zaidi | ECON | Unknown | | + + +---------+ + Care Team Providers + +------+ + | Care Nuclear Physicist Name | Role | Phone | + [...] WILDA Shaffer | | | | | [facility] | [facility] | | | | | Mailcode: [address] | [place], [place] | | | | | [facility] | [address] | | | | | [place], [place] | [phone] | | | | | [address] | | | | | | [phone] | | | +--------+ + + + [...] | + + + + + | [facility] | [address] | [place] [address] | | | PATHOLOGY | [address] | | | + + + + + | [facility] | [facility] | [place] [address] | | | PATHOLOGY | [address] [...] + + + + | PRODUCT | [id number] | | [facility] | | | UNIT [...] | [address] | [place], [place] [address] | | | PATHOLOGY | [address] | | | + + + + + | [facility] DEPARTMENT OF | [address] | [place] [address] | | | PATHOLOGY | [address] [...] + + + + | PRODUCT | [id number] | | [facility] | | | UNIT [...] + | [facility] DEPARTMENT OF | [address] | [place] [address] | | | PATHOLOGY | [address] | | | + + + + + | [facility] DE[facility]MENT OF | [address] | [place] [address] | | | PATHOLOGY | [address] [...] | + + + + + | [facility] | [address] | [place] [address] | | | PATHOLOGY | [address] | | | + + + + + | [facility] | [address] | [place] [address] | | | PATHOLOGY | [address] [...] | | + +---------+ + + | [facility] DEPARTMENT OF | | | | [...] | | + +---------+ + + | [facility] DEPARTMENT OF | | | | [...] | | + +---------+ + + | [facility] DEPARTMENT OF | | | | | RADIOLOGY | | | | + +---------+ + + documented in this encounter Visit Diagnoses Not on filedocumented in this encounter
--- OUTSIDE RECORDS SUMMARY | ~2018-09-22 | XMS | Encounter Summary ---
Demographics + + + | Address | [address] | | | [place] [address] | + + + | Home Phone | | + + + | Preferred Language | Unknown | + + + | Marital Status | | + + + | Church Affiliation | UNK | + + + | Race | White | + + + | Ethnic Group | Not or | + + + Author + + + | Author | [facility] | + + + | Organization | [facility] | + + + | Address | Unknown | + + + | Phone | Unavailable | + + + Support + + +---------+ + | Name | Relationship | Address | Phone | + + +---------+ + | Ria Wise | ECON | Unknown | | + + +---------+ + Care Team Providers + +------+ + | Care Organ Grinder Name | Role | Phone | + +------+ + PCP | Unavailable | + +------+ + Encounter Details +--------+ + + + + | Date | Type | Department | Care Team | Description | +--------+ + + + + | 05/18/ | Documentati | Anesthesiology | Unknown . | | | 2001 | on | [address] | | | | | | Monica Manzo | | | | | | [place], [place] | | | | | | [address] | | | +--------+ + + + [...] | + +--------+ + + + | ANESTHESIA/SEDATION | | 05/18/2001 | | Results for this | | | | 11:11 AM | | procedure are in the | | | | PST | | results section. | + +--------+ + + + documented in this encounter Results ANESTHESIA/SEDATION (05/18/2001 11:11 AM PST) + + + | Narrative | Performed At | + + + | Ordered by an unspecified provider. | | + + + + + | Transcriptions | + + | 05/18/2001 11:11 AM [facility] Anesthesia PostOp Report | | | | Patient: ZAKIA WISE Med Rec: [id number] Sex M Bdate: 1935 | | Date/Time Data | | Entered Into [facility] | | Anesth PostOp | | Surgery Date [id number] 05/18/01 11:11 | | Anesthesiologist DAVID 05/18/01 11:11 | | Resident Anesthesiolog MAURA ETIENNE 05/18/01 11:11 | | Complications | | Other Postop Complication 05/18/01 11:21 | | PERSISTENT LEFT ARM NUMBNESS AND WEAKNESS AFTER INTERSCALENE BLOC | | K - BLOCK JUST BEGINNING TO RECEDE THE AM AFTER SURGERY | | Cause Postop Complication 05/18/01 11:21 | | KNOWN SEQUELAE OF INTERSCALENE BLOCK, 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
--- OUTSIDE RECORDS SUMMARY | ~2018-09-22 | XMS | Encounter Summary ---
Demographics + + + | Address | [address] | | | [place] [address] | + + + | Home Phone | | + + + | Preferred Language | Unknown | + + + | Marital Status | | + + + | Mu-Ism Affiliation | UNK | + + + [...] Team Providers + +------+ + | Care Shop Tailor Apprentice Name | Role | Phone | + [...] as of this encounter Discharge Summaries Interface, Briquetter Operator In - 01/20/2006 1:[address] [address] [facility] MEDICAL SUMMARY OF HOSPITALIZATION Med Rec No: [...] M.D. EC:[id number] cc: FREDERICK CHAVEZ MD [address] [place] [address] [id number] signed by Interface, Briquetter Operator In at 01/20/2006 1:10 AM PDTdoc umented in this encounter Plan of Treatment Not on filedocumented as of this encounter Visit Diagnoses Not on filedocumented in this encounter"
--- OUTSIDE RECORDS SUMMARY | ~2018-09-22 | XMS | Encounter Summary ---
Demographics + + + | Address | [address] | | | [place] [address] | + + + | Home Phone | | + + + | Preferred Language | Unknown | + + + | Marital Status | | + + + | Sikhism Affiliation | UNK | + + + | Race | White | + + + | Ethnic Group | Not or | + + + Author + + + | Author | [facility] | + + + | Organization | [facility] | + + + | Address | Unknown | + + + | Phone | Unavailable | + + + Support + + +---------+ + | Name | Relationship | Address | Phone | + + +---------+ + | Ria Zaidi | ECON | Unknown | | + + +---------+ + Care Team Providers + +------+ + | Care Corn Detasseler Machine Operator Name | Role | Phone | [...] [address]IL[address]affer | | | | | [facility] | [facility] | | | | | Mailcode: [address] | [place], [place] | | | | | [facility] | [address] | | | | | [place], [place] | [phone] | | | | | [address] | | | | | | [phone] | | | +--------+ + + + [...]
--- OUTSIDE RECORDS SUMMARY | ~2018-09-22 | XMS | Encounter Summary ---
Demographics + + + | Address | [address] | | | [place] [address] | + + + | Home Phone | | + + + | Preferred Language | Unknown | + + + | Marital Status | | + + + | Lutheran Affiliation | UNK | + + + | Race | White | + + + | Ethnic Group | Not or | + + + Author + + + | Author | [facility] | + + + | Organization | [facility] | + + + | Address | Unknown | + + + | Phone | Unavailable | + + + Support + + +---------+ + | Name | Relationship | Address | Phone | + + +---------+ + | Ria Wise | ECON | Unknown | | + + +---------+ + Care Team Providers + +------+ + | Care Asbestos Worker Name | Role | Phone | + +------+ + PCP | Unavailable | + +------+ + Encounter Details +--------+ + + + + | Date | Type | Department | Care Team | Description | +--------+ + + + + | 08/20/ | [facility] | [facility] | Letter, | Letters | | 2002 | scribed | | Orthopedics | | +--------+ + + + + [...] as of this encounter Progress Notes Interface, Manager Ship In - 11/16/2005 1:01 AM [facility] [place] [address] [address] FAX Department of Orthopaedics, [facility] [id number] August 20, 2002 Evan De La O M.D. [address] [place] [address] [address] [place] [address] RE: ZAKIA WISE MR #: [id number] DOS: 08/20/[address] De La O: Mr. 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 It actually has been about 14 or 15 months since his surgery. His range of motion has held steady at about 130 to 135 degrees elevation, 45 degrees external rotation, and internal rotation to L4. He spent several months in [place], during which time, he did not pursue any home exercise program. 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 He fortunately did not suffer any exacerbation of pain symptoms. However, he does note that with the lack of specific exercise, he has lost some power in arm elevation and occasionally does have some ache. While clearly this is less than ideal, I believe that this is well within expectations given the level of pathology we were dealing with. I believe he agrees that the result overall is very good, and he really has recovered excellent function in the shoulder. Followup radiographs showed no change in the alignment of the prosthesis. I counseled him to continue on with at least 3 times a week home exercise program to maintain range of motion and strength. Apart from this, I believe he is doing well and can follow up in 9 to 12 months' time with repeat radiographs of the left shoulder. If there are any questions or concerns or I can be of any further assistance, please do not hesitate to contact me. Sincerely, Mohan Tapia M.D. [facility] / [id number] / [id number] / [id number] / Tdocumented in this encounter Plan of Treatment Not on filedocumented as of this encounter Visit Diagnoses Not on filedocumented in this encounter"
--- OUTSIDE RECORDS SUMMARY | ~2018-09-22 | XMS | Clinical Summary ---
Demographics + + + | Address | [address] | | | [place] [address] | + + + | Home Phone [...] Team Providers + +------+ + | Care Pitch Filler Name | Role | Phone | + +------+ + PP | Unavailable | + +------+ + Source Comments JOHN is fully live on both [facility] and [facility] InPatient.[facility] Allergies Not on File Medications Not on [...] | | | | | | | [address] | | + +--------+ +--------+ + +--------+ [...] | 1936 | [phone] | [place] [address] | | | wendy | | | 5 (Home) | | + +--------+ +--------+ + +"
--- OUTSIDE RECORDS SUMMARY | ~2018-09-22 | XMS | Encounter Summary ---
Demographics + + + | Address | [address] | | | [place] [address] | + + + | Home Phone | | + + + | Preferred Language | Unknown | + + + | Marital Status | | + + + | Druze Affiliation | UNK | + + + [...] Team Providers + +------+ + | Care Bending Machine Operator Name | Role | Phone [...] as of this encounter Progress Notes Interface, Experimental Welder In - 01/08/2006 1:10 AM PDTCLINIC DATE: [...] lateral. Mohan Tapia M.D. ESTELA / REY [id number] / [id number] / [id number] / Tdocumented in this encounter Plan of Treatment Not on filedocumented as of this encounter Visit Diagnoses Not on filedocumented in this encounter"
--- OUTSIDE RECORDS SUMMARY | ~2018-09-22 | XMS | Encounter Summary ---
Demographics + + + | Address | [address] | | | [place] [address] | + + + | Home Phone | | + + + | Preferred Language | Unknown | + + + | Marital Status | | + + + | Hindu Affiliation | UNK | + + + [...] Team Providers + +------+ + | Care Remote Recruiter Name | Role | Phone | + [...] as of this encounter Progress Notes Palmer, Clinical Associate In - 01/12/2006 3:07 AM PDTCLINIC DATE: [...] again in 6 weeks. Shayna Alas M.D. [facility] / [id number] / [id number] / [id number] / [id number] Tdocumented in this encounter Plan of Treatment Not on filedocumented as of this encounter Visit Diagnoses Not on filedocumented in this encounter"
--- OUTSIDE RECORDS SUMMARY | ~2018-09-22 | XMS | Encounter Summary ---
Demographics + + + | Address | [address] | | | [place] [address] | + + + | Home Phone | | + + + | Preferred Language | Unknown | + + + | Marital Status | | + + + | Voodoo Affiliation | UNK | + + + | Race | White | + + + | Ethnic Group | Not or | + + + Author + + + | Author | [facility] | + + + | Organization | [facility] | + + + | Address | Unknown | + + + | Phone | Unavailable | + + + Support + + +---------+ + | Name | Relationship | Address | Phone | + + +---------+ + | Ria Zaidi | ECON | Unknown | | + + +---------+ + Care Team Providers + +------+ + | Care Chemist Physical Name | Role | Phone | + [...] WILDA Shaffer | | | | | [facility] | [facility] | | | | | [address]: [address] | [place], [place] | | | | | [facility] | [address] | | | | | [place], [place] | [phone] | | | | | [address] | | | | | | [phone] | | | +--------+ + + + [...]
--- OUTSIDE RECORDS SUMMARY | ~2018-09-22 | XMS | Encounter Summary ---
Demographics + + + | Address | [address] | | | [place] [address] | + + + | Home Phone | | + + + | Preferred Language | Unknown | + + + | Marital Status | | + + + | Spiritism Affiliation | UNK | + + + | Race | White | + + + | Ethnic Group | Not or | + + + Author + + + | Author | [facility] | + + + | Organization | [facility] | + + + | Address | Unknown | + + + | Phone | Unavailable | + + + Support + + +---------+ + | Name | Relationship | Address | Phone | + + +---------+ + | Ria Zaidi | ECON | Unknown | | + + +---------+ + Care Team Providers + +------+ + | Care Institutional Asset Manager Name | Role | Phone | + [...] as of this encounter Progress Notes Palmer, Hair Designer In - 01/12/2006 3:07 AM PDTCLINIC DATE: [...] reassessment. Mohan Tapia M.D. ESTELA / REY [id number] / [id number] / [id number] / Tdocumented in this encounter Plan of Treatment Not on filedocumented as of this encounter Visit Diagnoses Not on filedocumented in this encounter"
--- OUTSIDE RECORDS SUMMARY | ~2018-09-22 | XMS | Encounter Summary ---
Demographics + + + | Address | [address] | | | [place] [address] | + + + | Home Phone [...] Team Providers + +------+ + | Care Registered Private Duty Nurse Name | Role | Phone | + [...] as of this encounter Progress Notes Palmer, Hoop Coiling Machine Operator In - 01/12/2006 3:07 AM PDTCLINIC [...] again in 6 weeks. Shayna Alas M.D. [facility] / [id number] / [id number] / [id number] / [id number] Tdocumented in this encounter Plan of Treatment Not on filedocumented as of this encounter Visit Diagnoses Not on filedocumented in this encounter"
--- OUTSIDE RECORDS SUMMARY | ~2018-09-22 | XMS | Encounter Summary ---
Demographics + + + | Address | [address] | | | [place] [address] | + + + | Home Phone [...] Team Providers + +------+ + | Care Regional Clinical Research Associate Name | Role | Phone | + +------+ + PCP | Unavailable | + +------+ + Encounter Details +--------+ + + + + | Date | Type | Department | Care Team | Description | +--------+ + + + + | 07/03/ | Results | Orthopaedics at | Mohan Tapia MD | | | 2001 | Only | [facility] [address] | [address] | | | | | [facility] | [facility] | | | | | [address]: [address] | [place], [place] | | | | | [facility] | [address] | | | | | [place], [place] | [phone] | | | | | [address] | | | | | | [phone] | | | +--------+ + + + [...] + +--------+ + + + | SHOULDER, 3 VIEWS | Routin | 07/03/2001 | | Results for this | | | e | 11:10 AM | | procedure are in the | | | | PST | | results section. | + +--------+ + + + documented in this encounter Results SHOULDER, 3 VIEWS (07/03/2001 11:10 AM PST) + + + + + + | Component | Value | Ref Range | Performed | Pathologist | | | | | At | Signature | + + + + + + | SHOULDER, 3 | Radiologist 1: KOKO, | | | | | MARIA INES | Tim BRODERICK, | | | | | | M.Miroslava.-Radiologist 2: | | | | | | MARY JO TURCIOS, | | | | | | M.D.LEFT SHOULDER, THREE | | | | | | VIEWS: Dated | | | | | | 07/03/2001. Dictated | | | | | | 07/04/2001. COMPARISON: | | | | | | 03/31/2001. | | | | | | FINDINGS: The | | | | | | patient has had | | | | | | resection of the humeral | | | | | | head withunipolar | | | | | | humeral head | | | | | | prosthesis. The | | | | | | prosthesis is in mild | | | | | | valgusalignment. Ther | | | | | | e is no evidence of | | | | | | hardware | | | | | | loosening. The | | | | | | humeralhead prosthesis | | | | | | is well seated within | | | | | | the flattened and | | | | | | scleroticglenoid. The | | | | | | prosthesis has a normal | | | | | | relationship with the | | | | | | acromion.There is mild | | | | | | narrowing of the | | | | | | acromioclavicular joint | | | | | | space. IMPRESSION: | | | | | | 1. Status post a left | | | | | | shoulder unipolar | | | | | | replacement. 2. No | | | | | | evidence of hardware | | | | | | loosening or | | | | | | complication. No | | | | | | acutefracture. | | | | | | 3. 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 END OF | | | | | | IMPRESSION: | | | | + + + + + + + + | Specimen | + + | | + + + +---------+ + + | Performing | Address | City/State/Zipcode | Phone Number | | Organization | | | | + +---------+ + + | [facility] DEPARTMENT OF | | | | | RADIOLOGY | | | | + +---------+ + + documented in this encounter Visit Diagnoses Not on filedocumented in this encounter"
--- OUTSIDE RECORDS SUMMARY | ~2018-09-22 | XMS | Encounter Summary ---
Demographics + + + | Address | [address] | | | [place] [address] | + + + | Home Phone | | + + + | Preferred Language | Unknown | + + + | Marital Status | | + + + | Presybeterian Affiliation | UNK | + + + [...] Team Providers + +------+ + | Care Noodle Maker Name | Role | Phone | + +------+ + PCP | Unavailable | + +------+ + Encounter Details +--------+ + + + + | Date | Type | Department | Care Team | Description | +--------+ + + + + | 05/17/ | Procedure - | | Record, Operation | Operative Report | | 2001 | | | | | | | Transcribed | | | | +--------+ + + [...] | + +--------+ + + + | OPERATION RECORD | | 05/17/2001 | | Results for this | | | | | | procedure are in the | | | | | | results section. 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 An extended deltopectoral | | approach wasperformed and the deltoid was freed of its adhesions to the humerus. | | Thehumerus was in considerable varus with very significant flattening of thehumeral | | head. The patient had about 10 degrees of external rotation, whichwas accomplished | | through an open book hinging of the flattened articularsurfaces. The subscapularis | | was elevated from bone in continuity with thetransverse humeral ligament in order to | | provide for a tendon lengthening.The muscle was somewhat deficient on its inferior | | surface. The axillarynerve was identified and protected throughout the case.With the | | capsule incised, the shoulder remained quite fixed. Thepectoralis major and | | latissimus required release in order to gainsufficient external rotation to | | allow dislocation of the head. Anosteotome was used to open up the superior | | margin of the head andsequential reamers were used to open up the medullary canal. | | Some valgusorientation of the reamers was required to bypass the malunion of | | thesurgical neck and enter the canal. However, given this position, good fitof the | | reamers were achieved, up to 10 mm. A cutting guide was thenattached to the | | reamer and the head osteotomy was performed. Themetaphyseal cutting guide was | | inserted, followed by removal of the reamerand insertion of a 10 mm trial stem. | | The extensive osteophytes wereremoved from the anterior, inferior and posterior | | surfaces. The inferiorand posterior surfaces were coagulated and bone wax was applied.A | | Chris-Williamson retractor was then positioned and the glenoid inspected. Theoverall | | contour of the glenoid appeared to be grossly intact, however theanterior third was | | pitted with soft cartilage, while the posteriortwo-thirds had eburnated bone. It | | was therefore decided to proceed withthe preoperative plan of performing a total | | shoulder arthroplasty. Acentral pilot boat deckhand hole was created and the glenoid was sized | | at 52 mm. Theglenoid was sequentially reamed. Drill holes were made for a five | | pegglenoid. However, two to the holes perforated the anterior and superiorcortex of | | the glenoid neck and it was therefore decided to proceed with akeeled glenoid. The | | glenoid was prepared for a keel and the bone wasthoroughly irrigated. A keeled | | trial was inserted and various head sizeswere trialed. A 52 x 18 mm eccentric head | | appeared to best recreate normalanatomy with about 2-3 mm of prominence of the head | | over the greatertuberosity. There was good soft tissue balance and excellent | | range ofmotion. The trial head and glenoid were removed and Surgicel and | | spraythrombin were impacted into the glenoid. Methylmethacrylate was preparedand | | impacted into the glenoid under pressure. The 52 mm keeled prosthesiswas inserted into | | place. The trial stem was then removed and drill holesmade in the anterior cortex of | | the humerus. The global shoulder 10 mm stemwas impacted into place using an impaction | | autograft technique using boneharvested from the head. Very good stability of the | | stem was achieved.The eccentric head was impacted into place. The subscapularis | | was thenattached to bone using three 1 mm cottony Dacron and a modified | | Alvaro-Allenstitch. The superior edge of the subscapularis was further repaired using#2 | | Tycron.The wound was then thoroughly irrigated using sterile saline and | | twoone-eighth inch Hemovac drains were placed in the wound. The subcutaneouslayer was | | closed with 2-0 Vicryl followed by a running 2-0 Prolenesubcuticular stitch and | | Steri-Strips. A sterile dressing was applied andthe patient was awakened. He was | | returned to his hospital bed and AP andaxillary x-rays were obtained. The [facility] | [facility]. The | | patient tolerated theprocedure well with no complications and approximately 300 cc blood | | loss.Mohan Tapia M.D.JAEMS/X65D:05/21/2001T:05/22/2001C:05/26/2001 [id number]: | |anterior third was pitted with soft cartilage, while the posterior | |two-thirds had eburnated bone. It was therefore decided to proceed with | |the preoperative plan of performing a total shoulder arthroplasty. A | |central pilot boat deckhand hole was created and the glenoid was sized at 52 mm. The | |glenoid was sequentially reamed. Drill holes were made for a five peg | |glenoid. However, two to the holes perforated the anterior and superior | |cortex of the glenoid neck and it was therefore decided to proceed with a | |keeled glenoid. The glenoid was prepared for a keel and the bone was | |thoroughly irrigated. A keeled trial was inserted and various head sizes | |were trialed. A 52 x 18 mm eccentric head appeared to best recreate normal | |anatomy with about 2-3 mm of prominence of the head over the greater | |tuberosity. There was good soft tissue balance and excellent range of | |motion. The trial head and glenoid were removed and Surgicel and spray | |thrombin were impacted into the glenoid. Methylmethacrylate was prepared | |and impacted into the glenoid under pressure. The 52 mm keeled prosthesis | |was inserted into place. The trial stem was then removed and drill holes | |made in the anterior cortex of the humerus. The global shoulder 10 mm stem | |was impacted into place using an impaction autograft technique using bone | |harvested from the head. Very good stability of the stem was achieved. | |The eccentric head was impacted into place. The subscapularis was then | |attached to bone using three 1 mm cottony Dacron and a modified Alvaro-Dewayne | |stitch. The superior edge of the subscapularis was further repaired using | |#2 Tycron. | | | |The wound was then thoroughly irrigated using sterile saline and two | |one-eighth inch Hemovac drains were placed in the wound. The subcutaneous | |layer was closed with 2-0 Vicryl followed by a running 2-0 Prolene | |subcuticular stitch and Steri-Strips. A sterile dressing was applied and | |the patient was awakened. He was returned to his hospital bed and AP and | |axillary x-rays were obtained. The patient was then transferred to the | |Post Anesthesia Care Unit in stable condition. The patient tolerated the | |procedure well with no complications and approximately 300 cc blood loss. | | | | | | | |Mohan Tapia M.D. | | | |RO/X65 | | | | | |C:05/26/2001 ds | | | | | |[id number] | | | |CC: | + + documented in this encounter Visit Diagnoses Not on filedocumented in this encounter"
--- OUTSIDE RECORDS SUMMARY | ~2018-09-22 | XMS | Encounter Summary ---
Demographics + + + | Address | [address] | | | [place] [address] | + + + | Home Phone | | + + + | Preferred Language | Unknown | + + + | Marital Status | | + + + | Episcopal Affiliation | UNK | + + + | Race | White | + + + | Ethnic Group | Not or | + + + Author + + + | Author | [facility] | + + + | Organization | [facility] | + + + | Address | Unknown | + + + | Phone | Unavailable | + + + Support + + +---------+ + | Name | Relationship | Address | Phone | + + +---------+ + | Ria Wise | ECON | Unknown | | + + +---------+ + Care Team Providers + +------+ + | Care Wheel Presser Name | Role | Phone | + [...] as of this encounter Progress Notes Interface, Dialysis Equipment Technician In - 11/16/2005 1:01 AM [facility] [place] [address] [address] FAX [facility] [id number] August 20, 2002 Evan De La O M.D. [address] [place] [address] [address] [place] [address] RE: ZAIKA WISE MR #: [id number] DOS: 08/20/[address] De La O: [...] to L4. He spent several months in [place], during which time, he did not pursue [...] to contact me. Sincerely, Mohan Tapia M.D. [facility] / [id number] / [id number] / [id number] / Tdocumented in this encounter Plan of Treatment Not on filedocumented as of this encounter Visit Diagnoses Not on filedocumented in this encounter"
--- OUTSIDE RECORDS SUMMARY | ~2018-09-22 | XMS | Encounter Summary ---
Demographics + + + | Address | [address] | | | [place] [address] | + + + | Home Phone [...] Team Providers + +------+ + | Care Skill Training Program Coordinator Name | Role | Phone | + [...] as of this encounter Progress Notes Interface, Senior Manufacturing Technician In - 01/24/2006 3:02 AM PDT [place] [address] [address] [place] [address] FAX [facility] [id number] April 08, 2001 Lorenzo De La O M.D. [address] [place] [address] RE: ZAKIA WISE MR #: [id number] DOS: 03/31/[address] De La O: [...] care. Sincerely, Mohan Tapia M.D. [facility]to / [id number] / [id number] / [id number] / Tdocumented in this encounter Plan of Treatment Not on filedocumented as of this encounter Visit Diagnoses Not on filedocumented in this encounter"
--- OUTSIDE RECORDS SUMMARY | ~2018-09-22 | XMS | Encounter Summary ---
Demographics + + + | Address | [address] | | | [place] [address] | + + + | Home Phone [...] Team Providers + +------+ + | Care Ms Sql Developer Name | Role | Phone | + [...] as of this encounter Progress Notes Interface, Flight Instructor In - 01/08/2006 1:10 AM PDTCLINIC DATE: [...] lateral. Mohan Tapia M.D. ESTELA / REY [id number] / [id number] / [id number] / Tdocumented in this encounter Plan of Treatment Not on filedocumented as of this encounter Visit Diagnoses Not on filedocumented in this encounter"
--- OUTSIDE RECORDS SUMMARY | ~2018-09-22 | XMS | Encounter Summary ---
Demographics + + + | Address | [address] | | | [place] [address] | + + + | Home Phone [...] Team Providers + +------+ + | Care Emergency Physician Name | Role | Phone | + +------+ + PCP | Unavailable | + +------+ + Encounter Details +--------+ + + + + | Date | Type | Department | Care Team | Description | +--------+ + + + + | 08/20/ | Results | Orthopaedics at | Mohan Tapia MD | | | 2002 | Only | [facility] [address] | [address] | | | | | [facility] | [facility] | | | | | Mailcode: PV430 | [place], [place] | | | | | [facility] | [address] | | | | | [place], [place] | [phone] | | | | | [address] | | | | | | [phone] | | | +--------+ + + + [...] | X-RAY SHOULDER 3+ | Routin | 08/20/2002 | | Results for this | | VIEWS LEFT | e | 9:20 AM | | procedure are in the | | | | PDT | | results section. | + +--------+ + + + documented in this encounter Results SHOULDER 3+ VIEWS LEFT (08/20/2002 9:20 AM PDT) + + + + + [...] HUBER, | | | | | | M.D.THREE VIEW LEFT | | | | | | SHOULDER: 08/20/2002 | | | | | | Dictated 08/20/2002 | | | | | | COMPARISON: 03/01/02. | | | | | | FINDINGS: There is | | | | | | normal postoperative | | | | | | alignment of the left | | | | | | totalshoulder | | | | | | arthroplasty with | | | | | | cemented glenoid | | | | | | component and | | | | | | noncementedhumeral | | | | | | component. No | | | | | | fracture, hardware | | | | | | failure or loosening | | | | | | areidentified. There | | | | | | is mild | | | | | | osteopenia. The | | | | | | acromioclavicular joint | | | | | | ismaintained. | | | | | | IMPRESSION: Normal | | | | | | postoperative alignment | | | | | | of left total shoulder | | | | | | arthroplastywith no | | | | | | evidence of fracture or | | | | | | hardware complication. | | | | | | END [...]
--- OUTSIDE RECORDS SUMMARY | ~2018-09-22 | XMS | Clinical Summary ---
Demographics + + + | Address | [address] | | | [place] [address] | + + + | Home Phone | | + + + | Preferred Language | Unknown | + + + | Marital Status | | + + + | Rastafari Affiliation | Unknown | + + + | Race | Unknown | + + + | Ethnic Group | Unknown | + + + Author + + + | Author | [facility] | | | and [place]ana | + + + | Organization | [facility] | | | and Devonana [...] Team Providers + +------+ + | Care Multiple Resaw Operator Name | Role | Phone | [...] | 20 | | e | | tin-[facility] [phone] | | | | 12 | [...]
--- OUTSIDE RECORDS SUMMARY | ~2018-09-22 | XMS | Encounter Summary ---
Demographics + + + | Address | [address] | | | [place] [address] | + + + | Home Phone | | + + + | Preferred Language | Unknown | + + + | Marital Status | | + + + | Congregation Affiliation | UNK | + + + | Race | White | + + + | Ethnic Group | Not or | + + + Author + + + | Author | [facility] | + + + | Organization | [facility] | + + + | Address | Unknown | + + + | Phone | Unavailable | + + + Support + + +---------+ + | Name | Relationship | Address | Phone | + + +---------+ + | Ria Zaidi | ECON | Unknown | | + + +---------+ + Care Team Providers + +------+ + | Care Fan Runner Name | Role | Phone | + [...] as of this encounter Progress Notes Interface, Services Manager In - 01/16/2006 1:06 AM PDTCLINIC DATE: [...] shoulder. Mohan Tapia M.D. ESTELA / REY [id number] / [id number] / [id number] / Tdocumented in this encounter Plan of Treatment Not on filedocumented as of this encounter Visit Diagnoses Not on filedocumented in this encounter"
--- OUTSIDE RECORDS SUMMARY | ~2018-09-22 | XMS | Encounter Summary ---
Demographics + + + | Address | [address] | | | [place] [address] | + + + | Home Phone [...] Author + + + | Author | [facility] | + + + | Organization | [facility] | + + + | Address | Unknown | + + + | Phone | Unavailable | + + + Support + + +---------+ + | Name | Relationship | Address | Phone | + + +---------+ + | Ria Wise | ECON | Unknown | | + + +---------+ + Care Team Providers + +------+ + | Care Leach Tank Tender Name | Role | Phone | + [...] [address] | | | | | | [place], [place] | | | | | | [address] | | | +--------+ + + + [...] | + + | 05/18/2001 11:11 AM [facility] Anesthesia PostOp Report | | | | Patient: ZAKIA WISE Med Rec: [id number] Sex M Bdate: 1935 | | Date/Time Data | | Entered Into [facility] | | Anesth PostOp | | Surgery Date [id number] 05/18/01 11:11 | | Anesthesiologist DAVID 05/18/01 [...]
--- OUTSIDE RECORDS SUMMARY | ~2018-09-22 | XMS | Encounter Summary ---
Demographics + + + | Address | [address] | | | [place] [address] | + + + | Home Phone [...] Providers + +------+ + | Care Asbestos Coverer Name | Role | Phone | + [...] as of this encounter Discharge Summaries Interface, Test Engine Mechanic In - 01/20/2006 1:[address] [address] [facility] MEDICAL SUMMARY OF HOSPITALIZATION Med Rec [...] M.D. EC:x76 cc: FREDERICK CHAVEZ MD [address] [place] [address] [id number] signed by Interface, Test Engine Mechanic In at 01/20/2006 1:10 AM PDTdoc umented in this encounter Plan of Treatment Not on filedocumented as of this encounter Visit Diagnoses Not on filedocumented in this encounter"
--- OUTSIDE RECORDS SUMMARY | ~2018-09-22 | XMS | Encounter Summary ---
Demographics + + + | Address | [address] | | | [place] [address] | + + + | Home Phone [...] Team Providers + +------+ + | Care Solutions Executive Cloud Sales Name | Role | Phone | + [...] [address] | | | | | [facility] | [facility] | | | | | Mailcode: PV430 | [place], [place] | | | | | [facility] | [address] | | | | | [place], [place] | [phone] | | | | | [address] | | | | | | [phone] | | | +--------+ + + + [...] the | | | | | | [place] glenoid. END OF | | | | | | IMPRESSION: | | | | + + + + + + + + | Specimen | + + | | + + + +---------+ + + | Performing | Address | City/State/Zipcode | Phone Number | | Organization | | | | + +---------+ + + | [facility] DEPARTMENT OF | | | | | RADIOLOGY | | | | + +---------+ + + documented in this encounter Visit Diagnoses Not on filedocumented in this encounter"
--- OUTSIDE RECORDS SUMMARY | ~2018-09-22 | XMS | Encounter Summary ---
Demographics + + + | Address | [address] | | | [place] [address] | + + + | Home Phone [...] Team Providers + +------+ + | Care Physical Security Manager Name | Role | Phone | [...] | Transcriptions | + + | Interface, Demolition Crane Operator In - 01/16/2006 1:06 AM PDT | | [facility] [address] | | [place], [place] [address] | | [facility] Rec No[facility] | | [id number] Date: 05/17/2001Name: Edd Zaidi SURGEON: | | Mohan Tapia M.D.GIN CLERK(S): Roosevelt Salas Jr., | | Melissa RomeroPREOPERATIVE [...] a total | | shoulder arthroplasty. Acentral health and safety coordinator hole was created and the glenoid was [...] patient | [facility]. The | | patient tolerated theprocedure well with no complications and approximately 300 cc blood | | loss.Mohan Tapia M.D.JAMES/X65D:05/21/2001T:05/22/2001C:05/26/2001 [id number]: | |anterior third was pitted with soft cartilage, while the posterior | |two-thirds had eburnated bone. It was therefore decided to proceed with | |the preoperative plan of performing a total shoulder arthroplasty. A | |central health and safety coordinator hole was created and the glenoid was [...] |C:05/26/2001 ds | | | | | |[id number] | | | |CC: | + + documented in this encounter Visit Diagnoses Not on filedocumented in this encounter"
--- OUTSIDE RECORDS SUMMARY | ~2018-09-22 | XMS | Encounter Summary ---
Demographics + + + | Address | [address] | | | [place] [address] | + + + | Home Phone | | + + + | Preferred Language | Unknown | + + + | Marital Status | | + + + | Cheondoism Affiliation | UNK | + + + | Race | White | + + + | Ethnic Group | Not or | + + + Author + + + | Author | [facility] | + + + | Organization | [facility] | + + + | Address | Unknown | + + + | Phone | Unavailable | + + + Support + + +---------+ + | Name | Relationship | Address | Phone | + + +---------+ + | Ria Zaidi | ECON | Unknown | | + + +---------+ + Care Team Providers + +------+ + | Care President Of The [place] Name | Role | Phone | + [...] [address] | | | | | [facility] | [facility] | | | | | Mailcode: [address]430 | [place], [place] | | | | | [facility] | [address] | | | | | [place], [place] | [phone] | | | | | [address] | | | | | | [phone] | | | +--------+ + + + [...] the | | | | | | [place] glenoid. END OF | | | | [...]
--- OUTSIDE RECORDS SUMMARY | ~2018-09-22 | XMS | Encounter Summary ---
Demographics + + + | Address | [address] | | | [place] [address] | + + + | Home Phone | | + + + | Preferred Language | Unknown | + + + | Marital Status | | + + + | Rastafarian Affiliation | UNK | + + + | Race | White | + + + | Ethnic Group | Not or | + + + Author + + + | Author | [facility] | + + + | Organization | [facility] | + + + | Address | Unknown | + + + | Phone | Unavailable | + + + Support + + +---------+ + | Name | Relationship | Address | Phone | + + +---------+ + | Ria Wise | ECON | Unknown | | + + +---------+ + Care Team Providers + +------+ + | Care Saxophone Teacher Name | Role | Phone | + [...] [address] | | | | | | [place], [place] | | | | | | [address] | | | +--------+ + + + [...] | + + | 05/18/2001 11:11 AM [facility] Anesthesia PostOp Report | | | | Patient: ZAKIA WISE Med Rec: [id number] Sex M Bdate: 1935 | | Date/Time Data | | Entered Into [facility] | | Anesth PostOp | | Surgery Date [id number] 05/18/01 11:11 | | Anesthesiologist DAVID 05/18/01 [...]
--- OUTSIDE RECORDS SUMMARY | ~2018-09-22 | XMS | Encounter Summary ---
Demographics + + + | Address | [address] | | | [place] [address] | + + + | Home Phone | | + + + | Preferred Language | Unknown | + + + | Marital Status | | + + + | Alevism Affiliation | UNK | + + + | Race | White | + + + | Ethnic Group | Not or | + + + Author + + + | Author | [facility] | + + + | Organization | [facility] | + + + | Address | Unknown | + + + | Phone | Unavailable | + + + Support + + +---------+ + | Name | Relationship | Address | Phone | + + +---------+ + | Ria Zaidi | ECON | Unknown | | + + +---------+ + Care Team Providers + +------+ + | Care Psychological Stress Evaluator Name | Role | Phone | + [...] as of this encounter Progress Notes Palmer, Delivery And Installation Subcontractor In - 01/12/2006 3:07 AM PDTCLINIC DATE: [...] reassessment. Mohan Tapia M.D. ESTELA / REY [id number] / [id number] / [id number] / Tdocumented in this encounter Plan of Treatment Not on filedocumented as of this encounter Visit Diagnoses Not on filedocumented in this encounter"
--- OUTSIDE RECORDS SUMMARY | ~2018-09-22 | XMS | Encounter Summary ---
Demographics + + + | Address | [address] | | | [place] [address] | + + + | Home Phone | | + + + | Preferred Language | Unknown | + + + | Marital Status | | + + + | Scientology Affiliation | UNK | + + + [...] Team Providers + +------+ + | Care Ballpoint Pen Assembly Machine Operator Name | Role | Phone [...] [facility] | | | | | | [facility] | | | | | | and Healing, 5th | | | | | | [place], [place] | | | | | | [address] | | | | | | [phone] | | | +--------+ + + + [...] | | | | | brown skin, [id number]. The | | | | | | [...] [facility] | [address], [address] | [place] [address] | | | DERMATOPATHOLOGY | [address] | | | + + + + + documented in this encounter Visit Diagnoses Not on filedocumented in this encounter
--- OUTSIDE RECORDS SUMMARY | ~2018-09-22 | XMS | Clinical Summary ---
Demographics + + + | Address | [address] | | | [place] [address] | + + + | Home Phone | | + + + | Preferred Language | Unknown | + + + | Marital Status | | + + + | Congregational Affiliation | Unknown | + + + | Race | Unknown | + + + | Ethnic Group | Unknown | + + + Author + + + | Author | [facility] | + + + | Organization | [facility] | + + + | Address | Unknown | + + + | Phone | Unavailable | + + + Support + + + + + | Name | Relationship | Address | Phone | + + + + + | Ria Wise | ECON | [address] | | | | | [place] | | | | | [address] | | + + + + + | Melissa/Jos Estevez | ECON | Unknown | | + + + + + Care Team Providers + +------+ + | Care Motor Grader Operator Name | Role | Phone | [...] +------+-------+ + | MEDICARE | MEDICA | [id number] | | | [address] | | | [place] | | | | [place] [address] | | | IP-OP | | | | | + +--------+ +------+-------+ + | [employer]AN | ODS | [id number] | | | | | | HEALTH [...] | [address] | | | [address] | [address] | + +--------+ +--------+ + +
--- OUTSIDE RECORDS SUMMARY | ~2018-09-22 | XMS | Encounter Summary ---
Demographics + + + | Address | [address] | | | [place] [address] | + + + | Home Phone [...] + + + | Author | [facility] | + + + | Organization | [facility] | + + + | Address | Unknown | + + + | Phone | Unavailable | + + + Support + + +---------+ + | Name | Relationship | Address | Phone | + + +---------+ + | Ria Zaidi | ECON | Unknown | | + + +---------+ + Care Team Providers + +------+ + | Care Entry Specialists Name | Role | Phone | + [...] [facility] | | | | | | [facility] | | | | | | and Healing, 5th | | | | | | [place], [place] | | | | | | [address] | | | | | | [phone] | | | +--------+ + + + [...] | | | | | brown skin, [id number]. The | | | | | | [...] [facility] | [address], [address] | [place] [address] | | | DERMATOPATHOLOGY | [address] | | | + + + + + documented in this encounter Visit Diagnoses Not on filedocumented in this encounter
--- OUTSIDE RECORDS SUMMARY | ~2018-09-22 | XMS | Encounter Summary ---
Demographics + + + | Address | [address] | | | [place] [address] | + + + | Home Phone [...] Team Providers + +------+ + | Care Account Maintenance Representative Name | Role | Phone | + [...] [address] | | | | | [facility] | [facility] | | | | | Mailcode: [address] | [place], [place] | | | | | [facility] | [address] | | | | | [place], [place] | [phone] | | | | | [address] | | | | | | [phone] | | | +--------+ + + + [...]
--- OUTSIDE RECORDS SUMMARY | ~2018-09-22 | XMS | Encounter Summary ---
Demographics + + + | Address | [address] | | | [place] [address] | + + + | Home Phone | | + + + | Preferred Language | Unknown | + + + | Marital Status | | + + + | Confucianism Affiliation | UNK | + + + [...] Team Providers + +------+ + | Care Gas Refrigerator Servicer Name | Role | Phone | + [...] as of this encounter Progress Notes Interface, Catalytic Converter Operator In - 01/24/2006 3:02 AM PDT [place] [address] [address] [address] [address] FAX [facility] [id number] April 08, 2001 Lorenzo De La O M.D. [address] [place] [address] RE: ZAKIA WISE MR #: [id number] DOS: 03/31/[address] De La O: [...] care. Sincerely, Mohan Tapia M.D. Rigoberto / [id number] / [id number] / [id number] / Tdocumented in this encounter Plan of Treatment Not on filedocumented as of this encounter Visit Diagnoses Not on filedocumented in this encounter"
--- OUTSIDE RECORDS SUMMARY | ~2018-09-22 | XMS | Clinical Summary ---
Demographics + + + | Address | [address] | | | [place] [address] | + + + | Home Phone | | + + + | Preferred Language | Unknown | + + + | Marital Status | | + + + | Sabianist Affiliation | Unknown | + + + | Race | Unknown | + + + | Ethnic Group | Unknown | + + + Author + + + | Author | [facility] [place] [facility] | | | and [place] | + + + | Organization | [facility] [place] [facility] | | | and Devonana | [...] Team Providers + +------+ + | Care Solid Waste Engineer Name | Role | Phone | [...] | 20 | | e | | tin-[facility] [phone] | | | | 12 | [...]
--- OUTSIDE RECORDS SUMMARY | ~2018-09-22 | XMS | Encounter Summary ---
Demographics + + + | Address | [address] | | | [place] [address] | + + + | Home Phone | | + + + | Preferred Language | Unknown | + + + | Marital Status | | + + + | Protestant Affiliation | UNK | + + + [...] Team Providers + +------+ + | Care Health Information Coder Name | Role | Phone | + [...] as of this encounter Progress Notes Interface, Coater Helper In - 11/16/2005 1:01 AM [facility] [place] [address] [address] FAX Department of Orthopa[facility]ics[facility] [id number] August 20, 2002 Evan De La O M.D. [address] [place] [address] [address] [place] [address] RE: ZAKIA WISE MR #: [id number] DOS: 08/20/[address] De La O: [...] to L4. He spent several months in [place], during which time, he did not pursue [...] to contact me. Sincerely, Mohan Tapia M.D. [facility] / [id number] / [id number] / [id number] / Tdocumented in this encounter Plan of Treatment Not on filedocumented as of this encounter Visit Diagnoses Not on filedocumented in this encounter"
--- OUTSIDE RECORDS SUMMARY | ~2018-09-22 | XMS | Encounter Summary ---
Demographics + + + | Address | [address] | | | [place] [address] | + + + | Home Phone | | + + + | Preferred Language | Unknown | + + + | Marital Status | | + + + | Muslim Affiliation | UNK | + + + | Race | White | + + + | Ethnic Group | Not or | + + + Author + + + | Author | [facility] | + + + | Organization | [facility] | + + + | Address | Unknown | + + + | Phone | Unavailable | + + + Support + + +---------+ + | Name | Relationship | Address | Phone | + + +---------+ + | Ria Wise | ECON | Unknown | | + + +---------+ + Care Team Providers + +------+ + | Care Clean Room Technician Name | Role | Phone | + [...] as of this encounter Progress Notes Interface, Behavioral Sciences Instructor In - 11/16/2005 1:01 AM [facility] [place] [address] [address] FAX [facility] [id number] August 20, 2002 Evan De La O M.D. [address] [place] [address] [address] [place] [address] RE: ZAKIA WISE MR #: [id number] DOS: 08/20/[address] De La O: [...] to L4. He spent several months in [place], during which time, he did not pursue [...] to contact me. Sincerely, Mohan Tapia M.D. [facility] / [id number] / [id number] / [id number] / Tdocumented in this encounter Plan of Treatment Not on filedocumented as of this encounter Visit Diagnoses Not on filedocumented in this encounter"
--- OUTSIDE RECORDS SUMMARY | ~2018-09-22 | XMS | Encounter Summary ---
Demographics + + + | Address | [address] | | | [place] [address] | + + + | Home Phone | | + + + | Preferred Language | Unknown | + + + | Marital Status | | + + + | Christianity Affiliation | UNK | + + + | Race | White | + + + | Ethnic Group | Not or | + + + Author + + + | Author | [facility] | + + + | Organization | [facility] | + + + | Address | Unknown | + + + | Phone | Unavailable | + + + Support + + +---------+ + | Name | Relationship | Address | Phone | + + +---------+ + | Ria Wise | ECON | Unknown | | + + +---------+ + Care Team Providers + +------+ + | Care Computer Technician Name | Role | Phone | [...] [address] | | | | | | [place], [place] | | | | | | [address] | | | +--------+ + + + [...] | + + | 05/18/2001 11:11 AM [facility] Anesthesia PostOp Report | | | | Patient: ZAKIA WISE Med Rec: [id number] Sex M Bdate: 1935 | | Date/Time Data | | Entered Into [facility] | | Anesth PostOp | | Surgery Date [id number] 05/18/01 11:11 | | Anesthesiologist DAVID 05/18/01 [...]
--- OUTSIDE RECORDS SUMMARY | ~2018-09-22 | XMS | Encounter Summary ---
Demographics + + + | Address | [address] | | | [place] [address] | + + + | Home Phone | | + + + | Preferred Language | Unknown | + + + | Marital Status | | + + + | Jehovah'S Witness Affiliation | UNK | + + + | Race | White | + + + | Ethnic Group | Not or | + + + Author + + + | Author | [facility] | + + + | Organization | [facility] | + + + | Address | Unknown | + + + | Phone | Unavailable | + + + Support + + +---------+ + | Name | Relationship | Address | Phone | + + +---------+ + | Ria Zaidi | ECON | Unknown | | + + +---------+ + Care Team Providers + +------+ + | Care Project Development Coordinator Name | Role | Phone | [...] as of this encounter Progress Notes Interface, Silver Recovery Operator In - 01/12/2006 3:07 AM PDTCLINIC DATE: 05/26/2001 [facility] The patient had phoned today requesting a refill on his oxycodone. A script was handwritten today Dr. Nikunj Duran for oxycodone #60 and mailed to the patient's home address. Kelvin Garcia M.D. / [id number] / [id number] / [id number] / [id number] C: 07/19/2001 hkh A M PDTdocumented in this encounter Plan of Treatment Not on filedocumented as of this encounter Visit Diagnoses Not on filedocumented in this encounter"
--- OUTSIDE RECORDS SUMMARY | ~2018-09-22 | XMS | Clinical Summary ---
Demographics + + + | Address | [address] | | | [place] [address] | + + + | Home Phone | | + + + | Preferred Language | Unknown | + + + | Marital Status | | + + + | Scientology Affiliation | Unknown | + + + | Race | Unknown | + + + | Ethnic Group | Unknown | + + + Author + + + | Author | [facility] | | | and [place] | + + + | Organization | [facility] | | | and [place]ana [...] Team Providers + +------+ + | Care Electrocardiograph Technician Name | Role | Phone | [...] | | e | | [facility] [phone] | | | | 12 | [...]
--- OUTSIDE RECORDS SUMMARY | ~2018-09-22 | XMS | Encounter Summary ---
Demographics + + + | Address | [address] | | | [place] [address] | + + + | Home Phone [...] + + + | Author | [facility] | + + + | Organization | [facility] | + + + | Address | Unknown | + + + | Phone | Unavailable | + + + Support + + +---------+ + | Name | Relationship | Address | Phone | + + +---------+ + | Ria Zaidi | ECON | Unknown | | + + +---------+ + Care Team Providers + +------+ + | Care Ladies Underwear Operator Name | Role | Phone | [...] as of this encounter Progress Notes Interface, Stock Layer In - 01/16/2006 1:06 AM PDTCLINIC DATE: [...] and x-ray lateral of the left shoulder. Mhoan Tapia M.D. ESTELA / REY [id number] / [id number] / [id number] / Tdocumented in this encounter Plan of Treatment Not on filedocumented as of this encounter Visit Diagnoses Not on filedocumented in this encounter"
--- OUTSIDE RECORDS SUMMARY | ~2018-09-22 | XMS | Encounter Summary ---
Demographics + + + | Address | [address] | | | [place] [address] | + + + | Home Phone | | + + + | Preferred Language | Unknown | + + + | Marital Status | | + + + | Sabianism Affiliation | UNK | + + + [...] Team Providers + +------+ + | Care Shearing Machine Operator Name | Role | Phone [...] WILDA Shaffer | | | | | [facility] | [facility] | | | | | Mailcode: [address] | [place], [place] | | | | | [facility] | [address] | | | | | [place], [place] | [phone] | | | | | [address] | | | | | | [phone] | | | +--------+ + + + [...]
--- OUTSIDE RECORDS SUMMARY | ~2018-09-22 | XMS | Encounter Summary ---
Demographics + + + | Address | [address] | | | [place] [address] | + + + | Home Phone | | + + + | Preferred Language | Unknown | + + + | Marital Status | | + + + | Latter-Day Affiliation | UNK | + + + [...] Team Providers + +------+ + | Care Chalk Molding Machine Operator Name | Role | Phone [...] | [address] | [facility], | | | | | [facility] | [place] [address] | | | | | [address]: [id number] | [phone] | | | | | [facility] | | | | | | [place], [place] | | | | | | [address] | | | | | | [phone] | | | +--------+ + + + [...] | | + +---------+ + + | [facility] DEPARTMENT OF | | | | | RADIOLOGY | | | | + +---------+ + + documented in this encounter Visit Diagnoses Not on filedocumented in this encounter"
--- OUTSIDE RECORDS SUMMARY | ~2018-09-22 | XMS | Encounter Summary ---
Demographics + + + | Address | [address] | | | [place] [address] | + + + | Home Phone [...] Team Providers + +------+ + | Care Laminator Printed Circuit Boards Name | Role | Phone | + [...] as of this encounter Progress Notes Interface, Business Asst In - 01/24/2006 3:02 AM PDT [place] [address] [place], [place] [address] FAX Department of Orthopaedics, [facility] [id number] April 08, 2001 Lorenzo De La O M.D. [address] [place] [id number] RE: ZAKIA WISE MR #: [id number] DOS: 03/31/[address] De La O: [...] to participate in this patient's care. Sincerely, Mhoan Tapia M.D. Rigoberto / [id number] / [id number] / [id number] / Tdocumented in this encounter Plan of Treatment Not on filedocumented as of this encounter Visit Diagnoses Not on filedocumented in this encounter"
--- OUTSIDE RECORDS SUMMARY | ~2018-09-22 | XMS | Clinical Summary ---
Demographics + + + | Address | [address] | | | [place] [address] | + + + | Home Phone | | + + + | Preferred Language | Unknown | + + + | Marital Status | | + + + | Jainism Affiliation | Unknown | + + + | Race | Unknown | + + + | Ethnic Group | Unknown | + + + Author + + + | Author | [facility] | + + + | Organization | [facility] | + + + | Address | Unknown | + + + | Phone | Unavailable | + + + Support + + + + + | Name | Relationship | Address | Phone | + + + + + | Ria Wise | ECON | [address] | | | | | [place] | | | | | [address] | | + + + + + | Melissa/Jos Estevez | ECON | Unknown | | + + + + + Care Team Providers + +------+ + | Care Cancer Program Director Name | Role | Phone | + [...] +------+-------+ + | MEDICARE | MEDICA | [id number] | | | [address] | | | RE | | | | [place] [address] | | | IP-OP | | | | | + +--------+ +------+-------+ + | [employer] | ODS | [id number] | | | | | | HEALTH [...] | [address] | | | [address] | [address] | + +--------+ +--------+ + +
--- OUTSIDE RECORDS SUMMARY | ~2018-09-22 | XMS | Encounter Summary ---
Demographics + + + | Address | [address] | | | [place] [address] | + + + | Home Phone | | + + + | Preferred Language | Unknown | + + + | Marital Status | | + + + | Methodist Affiliation | UNK | + + + | Race | White | + + + | Ethnic Group | Not or | + + + Author + + + | Author | [facility] | + + + | Organization | [facility] | + + + | Address | Unknown | + + + | Phone | Unavailable | + + + Support + + +---------+ + | Name | Relationship | Address | Phone | + + +---------+ + | Ria Zaidi | ECON | Unknown | | + + +---------+ + Care Team Providers + +------+ + | Care Belt Repairer Name | Role | Phone | + [...] as of this encounter Progress Notes Interface, Distance Learning Administrator In - 12/08/2005 3:00 AM PDTCLINIC DATE: [...] some length. He will be departing for [place] in about a month, and I suggested that he return to see me in July 2002 when he is back in town. We will repeat radiographs AP internal and external rotation, axillary, lateral of the left shoulder at that time. Mohan Tapia M.D. [facility] / [id number] / [id number] / [id number] / cc: Evan De La O M.D. [address] [place], [place] [id number] signed by Interface, Distance Learning Administrator In at 12/08/2005 3:0 0 AM PDTdocumented in this encounter Plan of Treatment Not on filedocumented as of this encounter Visit Diagnoses Not on filedocumented in this encounter"
--- OUTSIDE RECORDS SUMMARY | ~2018-09-22 | XMS | Encounter Summary ---
Demographics + + + | Address | [address] | | | [place] [address] | + + + | Home Phone [...] Team Providers + +------+ + | Care Planning Consultant Name | Role | Phone | + [...] | Transcriptions | + + | Interface, Private Household Worker In - 01/16/2006 1:06 AM PDT | | [facility] [address] | | [place], [place] [address] | | [facility] RECORDMed Rec No.: | | [id number] Date: 05/17/2001Name: Edd Zaidi SURGEON: | | Mohan Tapia M.D.GAS DISTRIBUTION SUPERVISOR(S): Roosevelt Salas Jr., | | Melissa RomeroPREOPERATIVE [...] a total | | shoulder arthroplasty. Acentral forestry pilot hole was created and the glenoid was [...] patient | | [facility]. The | | patient tolerated theprocedure well with no complications and approximately 300 cc blood | | loss.Mohan Tapia M.D.JAMES/X65D:05/21/2001T:05/22/2001C:05/26/2001 [id number]: | |anterior third was pitted with soft cartilage, while the posterior | |two-thirds had eburnated bone. It was therefore decided to proceed with | |the preoperative plan of performing a total shoulder arthroplasty. A | |central forestry pilot hole was created and the glenoid was [...] |C:05/26/2001 ds | | | | | |[id number] | | | |CC: | + + documented in this encounter Visit Diagnoses Not on filedocumented in this encounter"
--- OUTSIDE RECORDS SUMMARY | ~2018-09-22 | XMS | Encounter Summary ---
Demographics + + + | Address | [address] | | | [place] [address] | + + + | Home Phone | | + + + | Preferred Language | Unknown | + + + | Marital Status | | + + + | Faith Affiliation | UNK | + + + [...] Team Providers + +------+ + | Care Barrel Rifler Hook Name | Role | Phone | + [...] [facility] | | | | | | [facility] | | | | | | and Healing, [address]th | | | | | | [place], [place] | | | | | | [address] | | | | | | [phone] | | | +--------+ + + + [...] | | | | | brown skin, [id number]. The | | | | | | [...] [facility] | [address] [place], [address] | [place] [address] | | | DERMATOPATHOLOGY | [address] | | | + + + + + documented in this encounter Visit Diagnoses Not on filedocumented in this encounter
--- OUTSIDE RECORDS SUMMARY | ~2018-09-22 | XMS | Encounter Summary ---
Demographics + + + | Address | [address] | | | [place] [address] | + + + | Home Phone | | + + + | Preferred Language | Unknown | + + + | Marital Status | | + + + | Gnosticism Affiliation | UNK | + + + | Race | White | + + + | Ethnic Group | Not or | + + + Author + + + | Author | [facility] | + + + | Organization | [facility] | + + + | Address | Unknown | + + + | Phone | Unavailable | + + + Support + + +---------+ + | Name | Relationship | Address | Phone | + + +---------+ + | Ria Zaidi | ECON | Unknown | | + + +---------+ + Care Team Providers + +------+ + | Care Peoplesoft Programmer Name | Role | Phone | + [...] WILDA Shaffer | | | | | [facility] | [facility] | | | | | Mailcode: [address] | [place], [place] | | | | | [facility] | [address] | | | | | [place], [place] | [phone] | | | | | [address] | | | | | | [phone] | | | +--------+ + + + [...] the | | | | | | [place] glenoid. END OF | | | | | | IMPRESSION: | | | | + + + + + + + + | Specimen | + + | | + + + +---------+ + + | Performing | Address | City/State/Zipcode | Phone Number | | Organization | | | | + +---------+ + + | [facility] DEPARTMENT OF | | | | | RADIOLOGY | | | | + +---------+ + + documented in this encounter Visit Diagnoses Not on filedocumented in this encounter"
--- OUTSIDE RECORDS SUMMARY | ~2018-09-22 | XMS | Encounter Summary ---
Demographics + + + | Address | [address] | | | [place] [address] | + + + | Home Phone | | + + + | Preferred Language | Unknown | + + + | Marital Status | | + + + | Presybeterian Affiliation | UNK | + + + | Race | White | + + + | Ethnic Group | Not or | + + + Author + + + | Author | [facility] | + + + | Organization | [facility] | + + + | Address | Unknown | + + + | Phone | Unavailable | + + + Support + + +---------+ + | Name | Relationship | Address | Phone | + + +---------+ + | Ria Zaidi | ECON | Unknown | | + + +---------+ + Care Team Providers + +------+ + | Care Athlete Manager Name | Role | Phone | [...] as of this encounter Progress Notes Interface, Pecan Mallow Dipper In - 12/26/2005 3:10 AM PDTCLINIC DATE: [...] shoulder. Mohan Tapia M.D. ESTELA / REY [id number] / [id number] / [id number] / [id number] Tdocumented in this encounter Plan of Treatment Not on filedocumented as of this encounter Visit Diagnoses Not on filedocumented in this encounter"
--- OUTSIDE RECORDS SUMMARY | ~2018-09-22 | XMS | Encounter Summary ---
Demographics + + + | Address | [address] | | | [place] [address] | + + + | Home Phone [...] Team Providers + +------+ + | Care Mold Loft Worker Name | Role | Phone | [...] | [address] | [facility], | | | | | [facility] | [place] [address] | | | | | Mail[address]: [id number] | [phone] | | | | | [facility] | | | | | | [place], [place] | | | | | | [address] | | | | | | [phone] | | | +--------+ + + + [...] | | + +---------+ + + | [facility] DEPARTMENT OF | | | | | RADIOLOGY | | | | + +---------+ + + documented in this encounter Visit Diagnoses Not on filedocumented in this encounter"
--- OUTSIDE RECORDS SUMMARY | ~2018-09-22 | XMS | Encounter Summary ---
Demographics + + + | Address | [address] | | | [place] [address] | + + + | Home Phone [...] Team Providers + +------+ + | Care Desktop Specialist Name | Role | Phone | + [...] | Transcriptions | + + | Interface, Arrt Technologist In - 01/16/2006 1:06 AM PDT | | [facility] [address] | | [place], [place] [address] | | [facility]OPERATION RECORDMed Rec No.: | | [id number] Date: 05/17/2001Name: Edd Zaidi SURGEON: | | Mohan Tapia M.D.RADIOLOGY SPECIAL PROCEDURE TECH(S): Roosevelt Salas Jr., | | Melissa RomeroPREOPERATIVE [...] a total | | shoulder arthroplasty. Acentral aeroplane pilot hole was created and the glenoid [...] patient | | [facility]. The | | patient tolerated theprocedure well with no complications and approximately 300 cc blood | | loss.Mohan Tapia M.D.JAMES/X65D:05/21/2001T:05/22/2001C:05/26/2001 [id number]: | |anterior third was pitted with soft cartilage, while the posterior | |two-thirds had eburnated bone. It was therefore decided to proceed with | |the preoperative plan of performing a total shoulder arthroplasty. A | |central aeroplane pilot hole was created and the glenoid [...] |C:05/26/2001 ds | | | | | |[id number] | | | |CC: | + + documented in this encounter Visit Diagnoses Not on filedocumented in this encounter"
--- OUTSIDE RECORDS SUMMARY | ~2018-09-22 | XMS | Encounter Summary ---
Demographics + + + | Address | [address] | | | [place] [address] | + + + | Home Phone | | + + + | Preferred Language | Unknown | + + + | Marital Status | | + + + | Restoration Affiliation | UNK | + + + | Race | White | + + + | Ethnic Group | Not or | + + + Author + + + | Author | [facility] | + + + | Organization | [facility] | + + + | Address | Unknown | + + + | Phone | Unavailable | + + + Support + + +---------+ + | Name | Relationship | Address | Phone | + + +---------+ + | Ria Zaidi | ECON | Unknown | | + + +---------+ + Care Team Providers + +------+ + | Care Healthcare Administration Internship Name | Role | Phone | + [...] as of this encounter Progress Notes Interface, Geodetic Surveyor In - 01/08/2006 1:10 AM PDTCLINIC DATE: [...] lateral. Mohan Tapia M.D. ESTELA / REY [id number] / [id number] / [id number] / Tdocumented in this encounter Plan of Treatment Not on filedocumented as of this encounter Visit Diagnoses Not on filedocumented in this encounter"
--- OUTSIDE RECORDS SUMMARY | ~2018-09-22 | XMS | Encounter Summary ---
Demographics + + + | Address | [address] | | | [place] [address] | + + + | Home Phone | | + + + | Preferred Language | Unknown | + + + | Marital Status | | + + + | Christian Affiliation | UNK | + + + [...] Team Providers + +------+ + | Care Principal Clerk Typist Name | Role | Phone | + [...] WILDA Shaffer | | | | | [facility] | [facility] | | | | | [address]: [address] | [place], [place] | | | | | [facility] | [address] | | | | | [place], [place] | [phone] | | | | | [address] | | | | | | [phone] | | | +--------+ + + + [...]
--- OUTSIDE RECORDS SUMMARY | ~2018-09-22 | XMS | Encounter Summary ---
Demographics + + + | Address | [address] | | | [place] [address] | + + + | Home Phone | | + + + | Preferred Language | Unknown | + + + | Marital Status | | + + + | Confucianist Affiliation | UNK | + + + | Race | White | + + + | Ethnic Group | Not or | + + + Author + + + | Author | [facility] | + + + | Organization | [facility] | + + + | Address | Unknown | + + + | Phone | Unavailable | + + + Support + + +---------+ + | Name | Relationship | Address | Phone | + + +---------+ + | Ria Zaidi | ECON | Unknown | | + + +---------+ + Care Team Providers + +------+ + | Care Commercial Leasing Agent Name | Role | Phone | + [...] as of this encounter Progress Notes Interface, Accreditation Manager In - 01/12/2006 3:07 AM PDTCLINIC DATE: 05/26/2001 ORTHOP[facility]IC CLINIC The patient had phoned today requesting a refill on his oxycodone. A script was handwritten today Dr. Nikunj Duran for oxycodone #60 and mailed to the patient's home address. Kelvin Garcia M.D. / [id number] / [id number] / [id number] / [id number] C: 07/19/2001 hkh A M PDTdocumented in this encounter Plan of Treatment Not on filedocumented as of this encounter Visit Diagnoses Not on filedocumented in this encounter"
--- OUTSIDE RECORDS SUMMARY | ~2018-09-22 | XMS | Encounter Summary ---
Demographics + + + | Address | [address] | | | [place] [address] | + + + | Home Phone [...] + + + | Author | [facility] | + + + | Organization | [facility] | + + + | Address | Unknown | + + + | Phone | Unavailable | + + + Support + + +---------+ + | Name | Relationship | Address | Phone | + + +---------+ + | Ria Zaidi | ECON | Unknown | | + + +---------+ + Care Team Providers + +------+ + | Care Electrostatic Powder Coating Technician Name | Role | Phone | [...] as of this encounter Progress Notes Interface, Orange Picking Supervisor In - 12/08/2005 3:00 AM PDTCLINIC [...] some length. He will be departing for [place] in about a month, and I suggested that he return to see me in July 2002 when he is back in town. We will repeat radiographs AP internal and external rotation, axillary, lateral of the left shoulder at that time. Mohan Tapia M.D. [facility] / [id number] / [id number] / [id number] / cc: Evan De La O M.D. [address] [place], [place] [id number] signed by Interface, Orange Picking Supervisor In at 12/08/2005 3:0 0 AM PDTdocumented in this encounter Plan of Treatment Not on filedocumented as of this encounter Visit Diagnoses Not on filedocumented in this encounter"
--- OUTSIDE RECORDS SUMMARY | ~2018-09-22 | XMS | Encounter Summary ---
Demographics + + + | Address | [address] | | | [place] [address] | + + + | Home Phone | | + + + | Preferred Language | Unknown | + + + | Marital Status | | + + + | Bahai Affiliation | UNK | + + + | Race | White | + + + | Ethnic Group | Not or | + + + Author + + + | Author | [facility] | + + + | Organization | [facility] | + + + | Address | Unknown | + + + | Phone | Unavailable | + + + Support + + +---------+ + | Name | Relationship | Address | Phone | + + +---------+ + | Ria Zaidi | ECON | Unknown | | + + +---------+ + Care Team Providers + +------+ + | Care Brewery Cellar Worker Name | Role | Phone | [...] as of this encounter Progress Notes Interface, Road Worker In - 12/26/2005 3:10 AM PDTCLINIC DATE: [...] shoulder. Mohan Tapia M.D. ESTELA / REY [id number] / [id number] / [id number] / [id number] Tdocumented in this encounter Plan of Treatment Not on filedocumented as of this encounter Visit Diagnoses Not on filedocumented in this encounter"
[~2018-09-22 17:16] MED LIST changes: +NORCO 5-325 TA1 EACH PO
--- NOTE | 2018-09-22 20:35 | NUR ---
PT ARRIVES TO FLOOR VIA STRETCHER, MOVED TO BED WITH ASSISTANCE. PT'S AT BEDSIDE, EXPECTING FAMILY FROM [place] TO ARRIVE SHORTLY. ADMISSION PERFORMED. PT REPORTS PAIN IS WELL CONTROLLED IF HE IS NOT MOVING. PT AND HIS DENY NEEDS AT THIS TIME. CALL LIGHT WITHIN REACH.
[2018-09-22] MEDS ORDERED: RADICAVA IV (20:46)
[2018-09-22] MEDS ORDERED: RILUTEK50 MG PO (20:49)
--- NOTE | 2018-09-22 22:08 | NUR ---
I went to check on pt and pts family and they stated he needed to pee. I recieved help from RNs Leny and Naila. He resulted in 275. He did well with assistance in standing. He was helped back into bed and did not need anything further at this time.
--- NOTE | 2018-09-22 22:44 | NUR ---
KALEY Michele completed VS and I did I&Os.
--- NOTE | 2018-09-23 05:00 | NUR ---
PATIENT GOT ONE DOSE OF PAIN MEDICATION THROUGH HIS G-TUBE ONE TIME FOR PELIC PAIN. PATIENT HAS VOIDED X2 USING URINAL WITH 3 PERSON ASSIST TO STAND AT BEDSIDE. PATIENT IS PAIN FREE AT THIS TIME AND HIS IS AT BEDSIDE. BOWEL PROTOCOL MEDS WERE ALSO GIVEN THROUGH HIS G-TUBE. PATIENT HAS ALS WITH SLURRED SPEECH, BUT BEFORE HE FEEL YESTERDAY HE WAS GETTING AROUND WITH A WALKER. PATIENT IS NPO.
--- NOTE | 2018-09-23 09:07 | NUR ---
PATIENT STOOD AT SIDE OF BED TO VOID, 2PA FWW. PATIENT BACK IN BED, IN ROOM. CALL LIGHT IN REACH. NO FURTHER NEEDS AT THIS TIME.
--- NOTE | 2018-09-23 09:25 | NUR ---
PT RESTING SUPINE IN BED EYES CLOSED AND RESPIRATIONS EVEN AND UNALABORED. PT ALERT TO VOICE. ASSESSMENT COMPLETED. CALL LIGHT AND H20 IN REACH. FAMILY AT BEDSIDE.
--- NOTE | 2018-09-23 10:57 | NUR ---
PT REPORTS HAVING INDIGESTION, PT'S STATES PT TAKES 150MG OF RANITIDINE NEEDED AT HOME. MD NOTIFIED AND AGREES TO WRITE ORDER FOR THIS. PT DENIES PAIN, SOB OR ANY OTHER SYMPTOMS AND STATES HE IS OTHERWISE COMFORTABLE. CALL LIGHT AND H20 IN REACH. FAMILY AT BEDSIDE.
--- NOTE | 2018-09-23 11:38 | NUR ---
PT RESTING SUPINE IN BED, SCHEDULED ZANTAC ADMINISTERED VIA PEG TUBE AND PT ALSO FED 1 CONTAINER OF 1.5KAL LIQUID NUTRITIONAL SUPPLIMENT PER PT REQUEST AND PEG TUBE FLUSHED WITH WATER. CALL LIGHT AND H20 IN REACH. PT DENIES FURTHER NEEDS/CONCERNS.
--- NOTE | 2018-09-23 15:44 | NUR ---
PT RESTING SUPINE IN BED DENIES PAIN, OR NEEDS/CONCERNS. PT STATES HE WAS ABLE TO VOID AND DENIES FURTHER URGE TO VOID. CALL LIGHT AND H2O IN REACH. FAMILY AT BEDSIDE.
--- NOTE | 2018-09-23 18:04 | NUR ---
PT RESTING IN SEMI FOWLERS POSITION IN BED REPORTS INCREASED PAIN TO HIP. PRN OPIOD ADMINISTERED THROUGH PEG TUBE, AND 130MLS FREE WATER ALSO ADMINISTERED PER PT REQUEST. CALL LIGHT AND H20 IN REACH. NO FURTHER NEEDS/CONCERNS VOICED. PT APPEARS TO BE IN NO DISTRESS, RR16.
--- NOTE | 2018-09-23 18:30 | NUR ---
PATIENT IN BED RESTING. NO VOID RN NOTIFIED. CALL LIGHT IN REACH. NO FURTHER NEEDS AT THIS TIME.
--- NOTE | 2018-09-23 19:50 | NUR ---
CEMETERY LABORER ROUNDING NOTE. PT RESTING IN BED, AT BEDSIDE. PT ASSISTED TO ELEVATED HOB. PT AND DENY QUESTIONS AND CONCERNS. CALL LIGHT IN REACH. WHITE BOARD UPDATED.
--- NOTE | 2018-09-23 22:10 | NUR ---
PATIENT HAVING 5/10 PELVIC PAIN. PATIENT GIVEN HIS TUBE FEEDING PER G-TUBE ALONG WITH EVENING MEDS AND LORTAB ELIXER. PATIENT READY TO GO TO SLEEP NOW.
--- NOTE | 2018-09-24 | NUR ---
PATIENT RESTING QUIETLY ON HIS BIPAP, EYES CLOSED, RESPIRATION REGULAR. ASLEEP ON THE COUCH.
--- NOTE | 2018-09-24 02:05 | NUR ---
PATIENT CONTINUES TO REST QUIETLY AT MIDNIGHT. NOTHING HAS CHANGED. CALL LIGHT IN REACH.
--- NOTE | 2018-09-24 03:47 | NUR ---
PATIENT AWAKE AND HAVING 5/10 PAIN AGAIN. LORTAB ELIXER GIVEN THROUGH G-TUBE AGAIN. PATIENT IS STARTING TO SOUND A LITTLE WHEEZY, SATS GOOD ON BIPAP. WILL MONITOR.
--- NOTE | 2018-09-24 06:05 | NUR ---
PATIENT HAS STAYED FAIRLY COMFORTABLE THROUGH THE NIGHT, HAD TO HAVE PAIN MEDS PER G-TUBE X2 AND HADI FEEDING. SLEPT WITH BIPAP ON. PATIENT IS GETTING A LITTLE WHEEZY SO PATIENT AND TRAINED ON IS.
--- NOTE | 2018-09-24 07:28 | NUR ---
BEDSIDE REPORT RECEIVED FROM KALEY REYES. PT SATTING IN HIGH 80'S ON ROOM AIR TO 90% WITH DEEP BREATHING AND COUGHING BUT THEN BACK DOWN TO 87-89%. O2 TITRATED TO MAINTAIN SATTS ABOVE 92%. PT SATTING 93% ON 2LPNC AT THIS TIME. PT DENIED SOB EVEN WITH THE LOWER O2 SATS. AM MEDS ADMINSITERED AT THIS TIME PER PT AND FAMILIES REQUEST. PT ENCOURAGED TO USE INCENTIVE SPIROMETER 10X HOUR AND TO DEEEP BREATH AND COUGH. AT BEDSIDE NAD NO FURTHER NEEDS/CONCERNS VOICED.
--- NOTE | 2018-09-24 08:49 | NUR ---
O2 TITRATED OFF AND PT NOW SATTING AT 94% ON ROOM AIR. CALL LIGHT AND H20 IN REACH. FAMILY AT BEDSIDE, PER PT REQUEST WILL RETURN SOON TO ADMINISTER PAIN MEDICATION AND NUTRITIONAL FEEDING OF 1.5K.
--- NOTE | 2018-09-24 09:32 | NUR ---
PT REPORTS INCREASED PELVIC PAIN. PRN NORCO ELIXIR ADMINSITERED PER PT REQUEST. FEEDING AND FREE WATER ADMINISTERED PER PT REQUEST SEE I/O. CALL LIGHT AND H20 IN REACH. PT DENIES FURTHER NEEDS/CONCERNS. PT'S AT BEDSIDE. PT SATTING AT 93-94% ON .5LPNC AT THIS TIME.
--- NOTE | 2018-09-24 12:15 | NUR ---
IN TO SEE PT PER PT REQUEST HE WAS ASSISTED IN REPOSITIONING TO LEFT SIDE, CALL LIGHT AND H20 IN REACH. PT DENIES PAIN OR NAUSEA. NO FURTHER NEEDS/COCNERNS VOICED. FAMILY AT BEDSIDE.
--- NOTE | 2018-09-24 14:17 | NUR ---
Pt resting supine in bed visiting with family. Lunch feeding of isosource 250 mls administered along with 250mls of free water. Pt denies need for pain medication. Pt satting 94% on 2lpnc. Assessment completed. Call light and h20 in reach. pt denies further needs/concerns.
--- NOTE | 2018-09-24 16:16 | NUR ---
PT APPEARED TO HAVE A GOOD DAY, NO NAUSEA, PAIN WELL CONTROLLED WITH NORCO ELIXIR THROUGH PEG TUBE. PT TOLERATED FEEDINGS AND FREE WATER WELL. PT CONTINUES 2 PERSON ASSIST WITH FWW TO PIVOT TO CHAIR OR COMMODE. PT ALERT AND ORIENTED X4. DIFFICULT TO UNDERSTAND SEVERELY SLURRED SPEECH, HAS BEEN IN ROOM TRANSLATING FOR PT MAGORITY OF DAY. PT WORKED WITH PT TODAY AND APPEARED TO GIVE A GOOD EFFORT BUT WAS LIMITED IN THE AMOUNT OF EXERCISE HE WAS ABLE TO DO -SEE PT NOTES. CONTINUE Q2 TURNS.
--- NOTE | 2018-09-24 16:29 | NUR ---
pt resting supine in bed with hob elevated. pt alert and using I.S. pt reports pain of 5/10. Pt denies further needs/concerns. Family at bedside.
--- NOTE | 2018-09-24 17:16 | NUR ---
1700: Report recieved from Dominic ROCHE. Pt lying in bed with no complaints at this time and he denies any pain. PT repositioned in his bed.
--- NOTE | 2018-09-24 18:19 | NUR ---
PT GIVEN HIS JEVITY 1.5 JOJO 357 ML VIA THE PEG TUBE GIVEN FOLLOWED BY 150 ML OF TAP WATER. PT TOLERATED WELL AND CONTINUES TO HAVE HIS HEAD ELEVATED FOR ASPIRATION PRECAUTIONS. PT STATES HE HAS RIGHT HIP PAIN WHICH IS ACCEPTABLE TO HIM AT THIS TIME.
--- NOTE | 2018-09-24 19:05 | NUR ---
REPORT RECEIVED FROM OFFGOING RNSARAVANAN.
--- NOTE | 2018-09-24 21:01 | NUR ---
ROUNDED CHARGE. PATIENT COMPLAINS OF NEEDING HAIR WASHED. SHOWER CAP WITH SHAMPOO PLACED ON PATIENTS HAIR. NO FURTHER NEEDS NOTED. REMAINS ON THE ROOM. CALL LIGHT IN REACH.
--- NOTE | 2018-09-24 21:47 | NUR ---
ASSISTED STUDENT RN WITH PATIENTS MED PASS. PATIENT GIVEN PRN PAIN MEDICATION PER ORDER. EVENING MEDS GIVEN PER ORDER. PATIENT AND DENY ANY FURTHER NEEDS. JOJO LIGHT IN REACH. REMAINS IN ROOM.
--- NOTE | 2018-09-24 22:35 | NUR ---
PT ASSESSMENT COMPLETE. PT REPORTS THAT PAIN IS WELL CONTROLLED AT THIS TIME, ESPECIALLY WHILE HE IS NOT MOVING. PT DENIES NAUSEA OR SOB. LUNG SOUNDS DIM IN BILATERAL BASES. BT'S ACTIVE. ABD MILDLY DISTENDED. PT DENIES ABD TENDERNESS OR CRAMPING. PT'S REPORTS THAT PT HAS NOT HAD A BM IN APRROXIMATELY 4 DAYS. DISCUSSION REGARDING PT WOULD ADDITIONAL MEDICATION TO HELP WITH BM, PT'S STATES THEY WILL DISCUSS AND LET OR DIRECTOR KNOW. FURTHER NEEDS DENIED AT THIS TIME. CALL LIGHT WITHIN REACH.
--- NOTE | 2018-09-24 22:45 | NUR ---
BED BATH COMPLETE WITH TWO PERSON ASSIST. LINEN CHANGED. HAIR WASHED WITH SHOWER CAP. INCREASED SOB WITH EXERTION, RR 22 O2 SATS 93% ON 2L NC. PT POSITIONED ON RIGHT SIDE WITH PILLOWS. AT THE BED SIDE. CALL LIGHT IN REACH.
--- NOTE | 2018-09-25 01:00 | NUR ---
PT REPOSITIONED TO LEFT SIDE WITH PILLOWS. ASSITED PT TO USE URINAL TO VOID 1OO ML YELLOW URINE. IN THE ROOM. CALL LIGHT IN REACH.
--- NOTE | 2018-09-25 01:09 | NUR ---
CLINICAL STUDENT BEBE AND THIS UNIVERSITY COUNSELOR DID BED BATH AND REPOSITIONED PATIENT.
--- NOTE | 2018-09-25 02:24 | NUR ---
PT RESTING IN BED WITH EYES CLOSED. RESPIRATIONS EVEN AND UNLABORED. PT NOT WEARING CPAP AT THIS TIME, APPEARS TO BE SLEEPING. CALL LIGHT WITHIN REACH. SLEEPING ON COUCH.
--- NOTE | 2018-09-25 03:58 | NUR ---
PT ASSESSMENT COMPLETE. PT REPORTS PAIN 5/10 TO R HIP, PRN PAIN MEDICATION ADMINISTERED. PT DENIES NAUSEA OR SOB. O2 IN PLACE AT 2 LPM VIA NC. PT WITH AUDIBLE WHEEZE NOT HEARD ON AUSCLTATION. PT INSTRUCTED TO COUGH, PT REPORTS COUGH NONPRODUCTIVE. IS USE DEMONSTRATED. PT AGREES TO WEAR CPAP FOR REMAINDER OF THE NIGHT. PT DENIES FURTHER NEEDS, REMAINS AT BEDSIDE. CALL LIGHT IN REACH.
--- NOTE | 2018-09-25 07:40 | NUR ---
PT REPORTING 5/10 PELVIC PAIN. MEDICATED WITH PRN LORTAB VIA PEG TUBE. AT BEDSIDE. PT ALERT AND ORIENTED. PT HAS BASELINE APHASIA THAT MAKES IT DIFFICULT TO UNDERSTAND HIM BUT INTERPRETS NEEDED. IV FLUSHES WELL, DRESSING CDI. PEG TUBE NOTED MIDLINE ABD JUST BELOW STERNUM. SMALL DRAIN TUBE GAUZE IN PLACE, NO DRAINAGE NOTED, SKIN INTACT. CALL LIGHT WITHIN REACH.
--- NOTE | 2018-09-25 10:30 | NUR ---
APPROX 355ML OF JEVITY 1.5 ADMINISTERED THROUGH PEG TUBE BY PT DAUGHTER PER HER REQUEST STATES "I DO IT ALL THE TIME AT HOME." PT MUNIR WELL. FLUSHED WITH 50ML OF FREE WATER. PT REPORTS FEELING "COMFORTABLE" AT REST. DENIES NEED FOR PAIN MEDICATION AT THIS TIME. DAUGHTER AND GRANDSON AT BEDSIDE. CALL LIGHT WITHIN REACH.
--- NOTE | 2018-09-25 12:15 | NUR ---
PT REPOSITIONED TO RIGHT SIDE. PILLOW PLACED BETWEEN KNEES, HEEL PROTECTORS ON. PT FAMILY AT BEDSIDE. CALL LIGHT WITHIN REACH.
--- NOTE | 2018-09-25 14:14 | NUR ---
PT AND FAMILY REPORT PT IN SEVERE PAIN /10, PELVIS AND LEFT SHOULDER. PT FACE FLUSHED AND BREATHING HARD. SLIGHT WHEEZES NOTED. PT MEDICATED WITH PRN LORTAB 15MG PER PEG TUBE. FREE WATER FLUSH ADMINISTERED. PT ASSISTED TO SIT IN AT 80 DEGREES, BREATHING MUCH LESS LABORED AND LUNGS CLEAR TO AUSCULTATION, SATS 94% ON 2L NC. , DAUGHTER, AND GRANDSON AT BEDSIDE. CALL LIGHT WITHIN REACH.
[2018-09-25] MEDS ORDERED: GLYCOPYRROLATE2 MG PO (14:23)
--- NOTE | 2018-09-25 14:30 | NUR ---
355ML OF JEVITY 1.5 ADMINISTERED PER PEG TUBE. PT MUNIR WELL. REPORTS PAIN MUCH IMPROVED, RATES ONLY 2/10. DENIES NAUSEA OR OTHER CONCERNS. PT GRANDSON AT BEDSIDE. CALL LIGHT WITHIN REACH.
--- NOTE | 2018-09-25 15:35 | NUR ---
PT REQUESTED TO GET UP TO CHAIR. STOOD AT BEDSIDE WITH 2-3 PA WITH WALKER. PT ABLE TO STAND BUT HAS DIFFICULTY TAKING STEPS DUE TO PAIN WITH WEIGHT BEARING IN RIGHT HIP. PT VOIDED USING URINAL WHILE STANDING. THEN PIVOT TRANSFERRED TO RECLINER. FEET ELEVATED. CALL LIGHT AND PERSONAL BELONGINGS WITHIN REACH.
--- NOTE | 2018-09-25 16:45 | NUR ---
PT REQUESTED TO GET BACK TO BED. 2-3 PA PIVOT TRANSFER TO BED. ASSISTED TO POSITION OF COMFORT. HELL PROTECTORS IN PLACE. CALL LIGHT WITHIN REACH.
--- NOTE | 2018-09-25 17:43 | NUR ---
PATIENT IN BED WATCHING TV. CALL LIGHT IN REACH. NO FURTHER NEEDS AT THIS TIME.
--- NOTE | 2018-09-25 17:58 | NUR ---
PRN LORTAB ADMNISTERED THROUGH PEG TUBE. PT REPORTS 2/10 PAIN BUT STATES "I DON'T WANT THE PAIN TO GET BAD IT WAS EARLIER." PEG TUBE CHECKED FOR RESIDUALS PRIOR TO ADMINISTRATION, NO RESIDUALS NOTED ALTHOUGH PT REPORTS ABD "FULLNESS". 200ML OF FREE WATER ADMINISTERED. CALL LIGHT WITHIN REACH.
--- NOTE | 2018-09-25 21:42 | NUR ---
PT ASSESSMENT COMPLETE. PT RATES PAIN 3/10. PRN PAIN MED TO BE ADMINISTERED. PT DENIES NAUSEA OR SOB. PT ASSISTED OFF OF THE COMMODE AND INTO BED WITH 2PA AND FWW. PT TOLERATED OK. O2 IN PLACE AT 2 LPM. LUNG SOUNDS DIM IN BILATERAL BASES. PT WITH OCC NON PRODUCTIVE COUGH DURING ASSESSMENT. ABD FIRM, NONTENDER. PT NONSUCCESSFUL TO HAVE BM DESPITE URGE WHILE ON COMMODE. PT COMPLAINS OF FEELING PRESSURE/PAINFUL AREA ON L FOOT. REDDENED AREA NOTED TO L GREAT TOE FROM SEAM OF SOCK. PT POSITIONED WITH PILLOWS. AND DAUGHTER AT BEDSIDE. FURTHER NEEDS DENIED AT THIS TIME. CALL LIGHT WITHIN REACH. PT'S TO ASSIST PT WITH CPAP MACHINE WHEN PT IS READY FOR BED.
--- NOTE | 2018-09-25 23:35 | NUR ---
PT RESTING IN BED WITH EYES CLOSED. CPAP IN PLACE APPROPRIATELY. PT APPEARS TO BE SLEEPING. PT'S SLEEPING COUCH. CALL LIGHT IN REACH.
--- NOTE | 2018-09-26 01:51 | NUR ---
PT RESTING IN BED WITH EYES CLOSED. CPAP IN PLACE APPROPRIATELY. PT DOES NOT WAKE WHILE WRTIER AT DOORWAY. PT'S SLEEPING ONCOUCH. CALL LIGHT IN REACH.
--- NOTE | 2018-09-26 04:05 | NUR ---
PT RESTIN IN BED WITH EYES CLOSED. PT'S AWAKE, LYING ON COUCH. SHE STATES THAT PT HAS BEEN RESTING WELL BUT JUST BEGAN TO STIR. PT WAKES WHILE RETAIL LOSS PREVENTION OFFICER IN ROOM. DENIES NEEDS, OR NEED FOR PAIN MEDICATIONS. ENCOURAGED PT AND PT TO USE CALL LIGHT FOR NEEDS. CALL LIGHT IN REACH.
--- NOTE | 2018-09-26 04:28 | NUR ---
PT'S UTILIZES CALL LIGHT, REQUESTS THAT PT HAVE PRN PAIN MEDICATION. PT ASSESSMENT COMPLETE. PT DENIES SOB OR NAUSEA. PRN PAIN MEDICATION ADMINISTERED. PT WITH AUDBILE WHEEZE, NO WHEEZE NOTED ON LUNG AUSCILTATION. ABD FIRM, MILDLY DISTENDED. CMS INTACT TO ALL EXTREMITIES. HOME CPAP REPLACED PRIOR TO CONTROL ANALYST LEAVING THE ROOM. PT AND DENY NEEDS AT THIS TIME. CALL LIGHT IN REACH.
--- NOTE | 2018-09-26 06:20 | NUR ---
PT REPOSITIONED IN BED. PT REPORTS PAIN IS IMPROVED. PT DOING EXERCISES IN BED. PT'S REQUESTS HOT CHOCOLATE, DENIES FURTHER NEEDS. CALL LIGHT IN REACH.
--- NOTE | 2018-09-26 06:22 | NUR ---
ASSISTED PT WITH ANOTHER RN TO REPOSITION PT. PT STATED HE HAD A "GOOD NIGHT", PLANNING TO DO LEG EXCERCISES. OFFERED COFFEE, SHE REQUESTED HOT COCOA.
--- NOTE | 2018-09-26 07:00 | NUR ---
BEDSIDE HANDOFF REPORT RECEIVED FROM EDI PROGRAMMER RN. PT RESTING IN BED. AT BEDSIDE. PT AND DENY NEEDS AT THIS TIME.
--- NOTE | 2018-09-26 08:25 | NUR ---
PT RESTING IN BED. LUNG SOUNDS CLEAR, ON 2L NC, DENIES SOB. PT WITH APHASIA AND GARBLED SPEECH, DIFFICULT TO UNDERSTAND. PT RATING PAIN HIGH, ESPECIALLY WITH MOVEMENT, REQUESTING PAIN MEDICATION, GIVEN 15ML LORTAB PER ORDER VIA PEG TUBE. PEG TUBE FLUSHED, MEDICATIONS ADMINISTERED AND FLUSHED, TOTAL 275 ML OF WATER. PT WITH WEAKNESS IN ALL EXTREMITIES, CMS INTACT. IV SALINE LOCKED. PT DENIES OTHER NEEDS AT THIS TIME. PLAN FOR BED BATH THIS MORNING.
--- NOTE | 2018-09-26 09:19 | NUR ---
PATIENT GIVEN BEDBATH BY THIS STAFF THERAPIST. MERCEDES CARE, SKIN CARE, AM CARE DONE. LINENS CHANGED. PATIENT UP FROM BED TO CHAIR, 2PA FWW. FAMILY IN ROOM. CALL LIGHT IN REACH. NO FURTHER NEEDS AT THIS TIME.
--- NOTE | 2018-09-26 09:20 | NUR ---
CARE CONFERENCE INCLUDED: PT, PT GEETHA, PT DAUGHTER FRED, PT GRANDDAUGHTER AND 2 SMALL GREAT GRANDCHILDREN. MYSELF CASE MANAGEMENT, TARA ROCHE. DISCUSSION WAS HAD WITH ALL IN THE ROOM ABOUT THE PT BEING READY TO MOVE HIM TO A SNF AND THAT I WOULD BE MORE THAN WILLING TO DO THE CALLING AND ARRANGING IF THEY WOULD LET ME KNOW WHICH FACILTY THEY WOULD LIKE HIM TO GO TO . THE DAUGHTER STATED THEY HAD 2 CHOSES AND THOSE ARE [facility] [place] AND [facility] [place]. I TOLD THEM THAT I WOULD CONTACT THE ADMISSIONS COORDINATORS AND SEE WHO HAD WHAT TYPE OF BEDS AVAILABLE AND PER REQUEST OF DAUGHTER WHAT THE CAREGIVER TO PT RATIOS ARE AND IF THEY HAVE PRIVATE ROOMS AVAILABLE. FAMILY ALSO CONCERNED ABOUT THE PTS RADICAVA INFUSIONS WOULD BE DONE AND HOW. ITS 10 DAYS OF INFUSION FOLLOWED BY 14 DAYS NO MEDS. TOLD THEM I WOULD TALK WITH DR RODRÍGUEZ REGARDING THIS AND LET THEM KNOW. ALSO THEY WANT TO KNOW WHAT FACILITIES WILL ALL USING A WALKER, SCOOTER OR HIS ELECTRIC WC. I WILL LOOK INTO THIS.
--- NOTE | 2018-09-26 10:00 | NUR ---
CALLED [facility] AT THE [facility] AT [phone] AND LEFT A MESSAGE FOR HELENE. CALLED TIARA AT [phone] AND LEFT A MESSAGE FOR ADAM TO CALL BACK.
--- NOTE | 2018-09-26 10:50 | NUR ---
EVE FROM [facility] THE [place] CALLED AND STATED THEY HAD A BED AND WOULD LOOK INTO HIS CHART AND CALL US BACK AND LET US KNOW. TOLD HER I WOULD SEND CHART PACK SOON POSS.
--- NOTE | 2018-09-26 11:05 | NUR ---
RECIEVED MESSAGE FROM ADAM AND RETURNED HER CALL FROM TIARA IN [place]. SHE STATED THEY HAVE A BED BUT THEY WOULD LIKE TO SEE CHART NOTES AND GET BACK TO USE. TOLD HER I WOULD SEND THEM.
--- NOTE | 2018-09-26 11:10 | NUR ---
PT REFUSING TUBE FEED AT THIS TIME DUE TI CONSTIPATION, PT WILL TAKE TUBE FEED AFTER BM. PT ASSITED TO SHOWER CHAIR WITH 3PA WITH P.T. AND WALKER. ASSEMBLY MANAGER TO ASSIST WITH SHOWER. PLAN FOR MAG CITRATE AFTER SHOWER.
--- NOTE | 2018-09-26 12:00 | NUR ---
PT COMPLETED WITH SHOWER OT/ST. PT NOW RESTING IN BED. PT REQUESTING PAIN MEDICATION, RATING PAIN 5/10, GIVEN 7.5/325 MG LORTAB VIA PEG TUBE. MAG CITRATE GIVEN THROUGH PEG TUEB, FLUSHED WITH WATER. PT REQUESTING TO REST. PT PLACE ON 1L NC, O2 SATS 93-94%. AND DAUGHTER AT BEDSIDE. PT DENIES OTHER NEEDS AT THIS TIME.
--- NOTE | 2018-09-26 12:35 | NUR ---
FAXED CHART NOTES TO [facility] INCLUDING FACE SHEET, ER NOTES AND SUMMARY, H AND P, PROG NOTES, MEDS, IMAGING. PT NOTES. RECIEVED FAX CONFIRMATION. ALSO SECURELY EMAILED SAME CHART NOTES TO [facility]. RECIEVED MESSAGE FROM HELENE THAT SHE RECIEVED THOSE.
--- NOTE | 2018-09-26 13:59 | NUR ---
PT ASSISTED TO STAND TO USE URINAL, ABLE TO VOID. PT ASSISTED BACK TO BED. FLEET ENEMA GIVEN PER ORDER, PT RESTING ON LEFT SIDE. PT DENIES OTHER NEEDS AT THIS TIME.
--- NOTE | 2018-09-26 14:50 | NUR ---
[facility] CALLED AND STATED THEY WOULD NOT BE ABLE TO TAKE THE PT AT THIS TIME HE IS MORE COMPLICATED THE THEM TO HANDLE WITH THE ALS, PEG TUB, PINZON SO THEY ARE DECLINING. DID RECIEVED WORD FROM HELENE AT [facility] THAT THEY ARE WILLING ACCEPT PT BUT ARE UNABLE TO TAKE HIM UNTIL 09/27/18. I WENT IN AND TALKED WITH PT AND FAMILY AND THEY ARE GOOD WITH THIS. WE TALKED ABOUT TRANSPORT AND HOW THEY WANTED HIM TO GO AND THEY SAID THEY WOULD WANT [facility]. TOLD THEM I WOULD CALL AND KEEP THEM UPDATED.
--- NOTE | 2018-09-26 15:22 | NUR ---
PT ASSISTED TO BSC, UNABLE TO HAVE BM, ASSISTED BACK TO BED. DISCUSSED WITH PT AND FAMILY FREE WATER BOLUS AND HYDRATION, PT AGREEABLE TO BOLUS NOW, 300 ML OF WATER GIVEN PER PEG TUBE, SMALL AMOUNT OF GREEN/BILE RESIDUAL PRIOR TO BOLUS. DISCUSSED BM AND HYDRATION STATUS IWTH DR. RODRÍGUEZ, ORDER TO REPEAT MAG CITRATE, GIVEN REGLAN AND START IV FLUIDS.
[2018-09-26] MEDS ORDERED: NORCO 5-325 TA1 EACH PO (15:36)
--- NOTE | 2018-09-26 17:12 | NUR ---
PT RATING PAIN 8/10 TO EVELYN, REQUESTING PAIN MEDICATION, 7.5/325 MG LORTAB GIVEN. PT GIVEN 150 ML OF MAG CITRATE PER ORDER, 100 ML OF WATER BOLUS. PT DENIES OTHER NEEDS AT THIS TIME.
--- NOTE | 2018-09-26 17:15 | NUR ---
PT ON 1L NC, LUNG SOUNDS CLEAR, DESATS TO HIGH 80'S ON ROOM AIR. PT UP WITH 2PA WITH FWW AND GAIT BELT, WORKED WITH PT/OT/ST. PAIN WELL CONTROLLED WITH LORTAB 7.5/325MG. PT WITH PEG TUBE, FREE WATER GIVEN THROUGHOUT DAY, PT REFUSING TUBE FEED [place] UNTIL HE HAS A BM, AWARE. IV FLUIDS STARTED NS AT 125ML/HR. PT GIVEN MAG CITRATE X2 AND FLEET ENEMA, NO BM, BOWLE TONES ACTIVE. PT VOIDING QS.
--- NOTE | 2018-09-26 19:10 | NUR ---
BEDSIDE REPORT RECEIVED FROM KALEY PACHECO. PT LYING IN BED, IVF INFUSING WNL. 2RN ASSIST TO BED ROCHA FOR BM. PT REQUESTING TO GET UP TO COMMODE. CNAS IN ROOM FOR ASSISTANCE TO COMMODE. FAMILY IN ROOM. PT DIFFICULT TO COMPREHEND, STATES SOME PAIN. FAMILY IN ROOM.
--- NOTE | 2018-09-26 21:30 | NUR ---
PT ASSESSMENT COMPLETE. PRN PAIN MEDICATION ADMINISTERED VIA PEG TUBE, TUBE FLUSHED WNL. PT RATES PAIN UP TO 8/10 IN PELVIC AREA. DIFFICULT TO COMPREHEND SPEECH, AT BEDSIDE. PT USING MOUTH SWABS. CALL LIGHT IN REACH.
--- NOTE | 2018-09-26 22:44 | NUR ---
2 PA USING URINAL BY STANDING WITH WALKER AND GAIT BELT. IS IN THE ROOM. PATIENT IS BACK IN BED.
--- NOTE | 2018-09-26 23:02 | NUR ---
CALL LIGHT ANSWERED PT ASSISTED TO USE URINAL WITH 2PA, FWW TO STAND AT BEDSIDE. URINE CONCENTRATED. IVF INFUSING WNL ORDERED. SCHEDULED MEDICATIONS ADMINISTERED VIA PEG TUBE. CALL LIGHT IN REACH. CPAP PLACED ON PT.
--- NOTE | 2018-09-27 01:37 | NUR ---
ANSWERED CALL LIGHT. PATIENT WANTS TO USE THE BEDSIDE COMMODE. 2 PA USING WALKER AND GAIT BELT. PRIMARY RN IS WITH PATIENT. PATIENT'S IS IN THE ROOM.
--- NOTE | 2018-09-27 01:43 | NUR ---
2[place] [facility] [place] ABLE TO HAVE LARGE LOOSE BM. CHUX CHANGED, SOME INCONTINENCE. ASSESSMENT COMPLETE. PT RATES PAIN 3/10 AT REST, INCREASED WITH MOVEMENT IN PELVIC AREA. PRN PAIN MEDICATION ADMINISTERED THROUGH PEG TUBE. BOWEL TONES ACTIVE X 4, ABD SOFT. PT HAS CALL LIGHT IN REACH. IVF INFUSING WNL ORDERED. HEEL PROTECTORS ON. CPAP IN PLACE. LIGHTS OFF IN ROOM. AT BEDSIDE. DENIES ANY ADDITIONAL NEEDS AT THIS TIME.
--- NOTE | 2018-09-27 04:39 | NUR ---
CHECKED ON PT, APPEARS TO BE SLEEPING. RR 16. EYES CLOSED. CPAP ON. IVF INFUSING ORDERED.
--- NOTE | 2018-09-27 05:54 | NUR ---
2PA FROM BSC TO BED. PT HAD LARGE LOOSE, SOFT BM. PT RATES PAIN 7/10 WITH MOVEMENT, PRN PAIN MEDICATION AND PRN SECRETION MEDICATION ADMINISTERED THROUGH PEG TUBE. TUBE PATENT. 2L OXYGEN BY NC ON. PT ASSISTED TO REPOSITION. DENIES ADDITIONAL REQUESTS. AT BEDSIDE. CALL LIGHT IN REACH. IVF INFUSING WNL.
--- NOTE | 2018-09-27 06:02 | NUR ---
PT HAD THREE BMS THIS SHIFT. 2PA TO STAND AND PIVOT TO BSC WITH FWW. PT DIFFICULT TO COMPREHEND, PAIN CONTROLLED WITH PRN LORTAB AVAILABLE. NPO. FREE WATER WITH PEG TUBE, MEDICATIONS. IVF INFUSING WNL ORDERED. PRESENT IN ROOM.
--- NOTE | 2018-09-27 07:05 | NUR ---
BEDSIDE HANDOFF REPORT RECEIVED FROM CONCRETE WORKER RN. PT RESTING INBED. AT BEDSIDE. DISCUSSED PLAN OF CARE FOR THE DAY, PT CONTINUES TO REFUSE TUBE FEED AT THIS TIME, STATES HE STILL FEELS FULL DESPITE HAVING LARGE BMS OVER NIGHT.
--- OUTSIDE RECORDS SUMMARY | 2018-09-27 07:31 | XMS | Clinical Summary ---
Demographics + + + | Address | [address] | | | [place] [address] | + + + | Home Phone | | + + + | Preferred Language | Unknown | + + + | Marital Status | | + + + | Sikh Affiliation | UNK | + + + | Race | White | + + + | Ethnic Group | Not or | + + + Author + + + | Author | [facility] | + + + | Organization | [facility] | + + + | Address | Unknown | + + + | Phone | Unavailable | + + + Support + + +---------+ + | Name | Relationship | Address | Phone | + + +---------+ + | Ria Zaidi | ECON | Unknown | | + + +---------+ + Care Team Providers + +------+ + | Care Project Assistant Name | Role | Phone | + +------+ + PP | Unavailable | + +------+ + Source Comments JOHN is fully live on both [facility] and [facility] InPatient.Formerly [facility] Allergies Not on File Medications Not on file Active Problems Not on file Social History + +-------+ +--------+------+ | Tobacco Use | Types | Packs/Day | Years | Date | | | | | Used | | + +-------+ +--------+------+ | Never Assessed | | | | | + +-------+ +--------+------+ + + + | Sex Assigned at | Date Recorded | | | | + + + | Not on file | | + + + + + + + | Job Start Date | Occupation | Industry | + + + + | Not on file | Not on file | Not on file | + + + + + + + + | Travel History | Travel Start | Travel End | + + + + + + | No recent travel history available. | + + Plan of Treatment + + + + + | Health Maintenance | Due Date | Last Done | Comments | + + + + + | Pneumococcal (Adult) | | | | | (1 of 2 - PCV13) | 0 | | | + + + + + | Influenza (Flu) | | | | | vaccination (Season | 9 | | | | Ended) | | | | + + + + + Results Not on filefrom Last 3 Months Insurance + +--------+ +--------+ + +--------+ | Payer | Benefi | Subscriber | Effect | Phone | Address | Type | | | t Plan | ID | fela | | | | | | / | | Dates | | | | | | Group | | | | | | + +--------+ +--------+ + +--------+ | MEDICARE | MEDICA | xxxxxxxxxx | 12/01/19 | [phone] | [address] | [address] | | | RE A & | | 00-[id number] | [phone] | | | [address] | | sent | | [place] | | | | | | | | [id number] | | + +--------+ +--------+ + +--------+ + +--------+ +--------+ + + | Guarantor Name | Accoun | Relation to | Date | Phone | Billing Address | | | t Type | Patient | of | | | | | | | | | | + +--------+ +--------+ + + | Edd Zaidi | Person | Self [birth year] | [address] | | | al/Fam | | 1936 | [phone] | [place] [address] | | | wendy | | | 5 (Home) | | + +--------+ +--------+ + +"
--- NOTE | 2018-09-27 08:00 | NUR ---
PT RESTING IN BED. PT ON ROOM AIR, LUNG SOUNDS CLEAR. PT DENIES PAIN AT THIS TIME. BOWEL TONES ACTIVE, ABD SOFT. PT WITH PEG TUBE TO RUQ, FLUSHED WITH WATER, MEDS GIVEN. CMS INTACT, WITHOUT EDEMA. IV INFUSING NS AT 125 ML/HR. PLAN TO [facility] TODAY, PT REQUEST SHOWER THIS AM. PT DENIES OTHER NEEDS AT THIS TIME.
--- NOTE | 2018-09-27 09:40 | NUR ---
PT REQUESTING PAIN MEDICATION. PT RATIN GPAIN 09/08 AT THIS TIME. GIVEN 15 ML LORTAB VIA PEQ TUBE. DISCUSSED PLAN FOR SHOWER IN ABOUT 45 MINUTES, PT AGREEABLE. PT DENIES OTHER NEEDS AT THIS TIME.
--- NOTE | 2018-09-27 10:15 | NUR ---
RECIEVED A CALL FROM [facility] AND SHE STATED THEY ARE WILLING TO TAKE THE PT BUT THEY CAN'T UNTIL TOMORROW SOMETIME BETWEEN 9 AND 1530 THEY WERE MOVING A LOT OF THEIR REHAB PTS TO MAKE SURE THEY HAD A SAFE PLACE FOR ZAKIA TO MOVE INTO. CLOSE TO THE NURSES STATION. I INFORMED THE FAMILY OF THIS AND THEY WERE FINE WITH THIS. WE ALSO TALKED ABOUT [facility] PICKING PT UP IN THE MORNING AND I WILL CALL SOMETIME AFTER 1400 THIS AFTERNOON TO CONFIRM TIME.
--- NOTE | 2018-09-27 12:36 | NUR ---
RIGHT CHEST PORT ACCESSED WITH 20 GUAGE SANDOVAL NEEDLE, GOOD BLOOD RETURN NOTED, FLUSHED WITH 20ML OF NORMAL SALINE, FOLLOWED BY 4ML OF HEPARIN FLUSH. PATIENT TOLERATED PROCEDURE WELL. DR. RODRÍGUEZ IN TO SEE PATIENT.
--- NOTE | 2018-09-27 13:01 | NUR ---
PT ASSISTED TO BEDSIDE COMMODE. PLAN FOR WARM PRUNE JUICE IF PT UNABLE TO HAVE BM. CALL LIGHT WITHIN REACH. PT DENIES OTHER NEEDS AT THIS TIME.
--- NOTE | 2018-09-27 14:28 | NUR ---
PT ASSISTED TO BED. PT GIVEN WARM PRUNE JUICE PER PT REQUEST, 240 ML OF 1.5 JOJO JEVITY AND 100 ML OF WATER. PT REFUSING P.T. TODAY BECAUSE HE HAS BEEN TRANSFERING FREQUENTLY TO [facility]. PT DENIES OTHER NEEDS AT THIS TIME.
--- NOTE | 2018-09-27 14:44 | NUR ---
DAGMAR CALLED FROM [facility] CALLED AND ASKED THE NAME OF THE COMPANY AND THE NAME OF THE TUBING THEY WERE USING FOR HIS TUBE FEEDINGS. I SPOKE WITH HIS NURSE WHO STATED SHE DID NOT DIRECTLY KNOW BUT SHE WOULD FIND OUT FROM THE PT . FOUND OUT IT IS AT: [facility] [employer]. SHE ALSO SAID THE FEEDINGS SHE WOULD BRING THE SUPPLY THEY HAVE AT HOME THEY HAVE A LOT THAT IS ALREADY THERE AND THEY NEED TO GET IT USED. THIS INFORMATION WAS CALLED TO [facility] AT THE [facility].
[2018-09-27] MEDS ORDERED: HYDROCODONE-ACE15 M3 PT (16:34)
--- NOTE | 2018-09-27 16:45 | NUR ---
PT GIVEN COLACE AND REGLAN PER ORDER. FREE WATER FOR 250 ML GIVEN. PT WITH INCREASED PAIN, DISCUSSED PAIN MEDICATION WHEN AVAIALBLE. PT DENIES OTHER NEEDS AT THIS ITME.
--- NOTE | 2018-09-27 17:29 | NUR ---
TALKED TO [facility] THIS AFTERNOON AND HE STATED HE COULD BE HERE AROUND 1000 09/28/18 AND WITH A WC, ALSO STATES THE BERNAL WE TALKED ABOUT THIS AM $150 IS THE CORRECT BERNAL.
--- NOTE | 2018-09-27 17:49 | NUR ---
PT GIVEN LORTAB PER PEG TUEB FOR PAIN 06/11, INCREASED PAIN WITH MOVEMENT. PT ASSISTED TO BSC WITH 2 PA, CALL LIGHT WITHIN REACH PT GOING TO ATTEMPT TO HAVE BM AND REQUESTING TIME. PT DENEIS OTHER NEEDS AT THIS TIME.
--- NOTE | 2018-09-27 18:07 | NUR ---
PT WEANED TO ROOM AIR, O2 SATS 96%, LUNG SOUNDS CLEAR. PT TOLERATED INCREASED TUBE FEED AND FREE WATER TODAY. PT GIVEN COLACE, REGLAN, MIRALAX, SENNA, AND PRUNE JUICE TO ENCOURAGE BM. PT UP WITH 2PA WITH GAIT BELT AND FWW, BETTER STRENGTH TODAY. IV SALINE LOCKED. RIGHT PORT ACCESSED AND HEP LOCKED PER ORDER. PLAN FOR DC [facility]ORROW TO [facility].
--- NOTE | 2018-09-27 19:12 | NUR ---
PT HAS NOT VOIDED IN LAST 4 HOURS, BLADDER SCAN FOR 415 NOTIFIED NO NEW ORDERS.
--- NOTE | 2018-09-27 20:24 | NUR ---
PATIENT STOOD WITH 2 PERSON ASSIST AND FWW TO TRY AND URINATE IN THE URINAL. HE ONLY HAD A SLIGHT AMOUNT AND WILL TRY AGAIN LATER. BACK IN BED AT THIS TIME WITH AT BEDSIDE.
--- NOTE | 2018-09-27 23:03 | NUR ---
TUUBE FEEDING AND EVENING MEDS GIVEN. PATIENT'S RESTING ON THE COUCH. PATIENT DOES NOT WANT HIS CPAP ON AND BOTH ARE GOING TO TRY AND GO TO SLEEP.
--- NOTE | 2018-09-28 00:53 | NUR ---
PATIENT UP ON THE COMMODE AT THIS TIME.
--- NOTE | 2018-09-28 03:00 | NUR ---
PATIENT RESTING QUIETLY WITH EYES CLOSED, ON HIS CPAP MACHINE. RESPIRATIONS REGULAR. ASLEEP ON THE SOFA.
--- NOTE | 2018-09-28 05:10 | NUR ---
PATIENT GOT 1 PAIN MEDICATION AT EVENING MED PASS AND 1 EVENING TUBE FEEDING. THEN HE REQUESTED TO LEAVE HIS CPAP OFF FOR A SHORT TIME, BUT LATER PUT IT ON AND RRESTED QUIETLY MOST OF THE NIGHT EXCEPT FOR GETTING UP AND HAVVING A SMALL BM. VOIDING PER URINAL IV FLUSHES WELL.
--- NOTE | 2018-09-28 06:46 | NUR ---
PATIENT GIVEN HIS LORTAB ELIXER BEFORE PAIN STARTS.
--- NOTE | 2018-09-28 07:07 | NUR ---
BEDSIDE REPORT RECIEVED FROM AMY ROCHE. PT SITTING ON THE COMMODE AT THIS TIME AND STATES HE IS NOT READY TO GET UP AT THIS TIME. PT'S REMAINS IN THE ROOM WITH THE PT.
--- NOTE | 2018-09-28 07:30 | NUR ---
PATIENT USING BASE COMMODE. IN ROOM. PATIENT TRANSFERRED TO SHOWER CHAIR. PATIENT USES GATE BELT AND WALKER. TWO PERSON ASSISTING. PATIENT GOES TO TAKE A SHOWER. LINENS CHANGED. PATIENT IS DRESS. PATIENT BACKS TO BED. NO OTHER NEEDS AT THIS TIME
--- NOTE | 2018-09-28 08:19 | NUR ---
DR RODRÍGUEZ AWARE OF THE PT'S DECREASED URINE OUTPUT. WILL CONTINUE TO MONITOR.
--- NOTE | 2018-09-28 08:21 | NUR ---
PT RESTING IN HIS BED. HE HAD A SHOWER AND IS DRESSED AND IS GETTING READY FOR HIS TRANSFER TO HIS REHAB FACILITY. IV SITE DC'D TIP INTACT. PT DENIES ANY PAIN OR PROBLEMS AT THIS TIME. CALL VALENTINE WITHIN REACH.
--- NOTE | 2018-09-28 09:39 | NUR ---
PT SITTING UP IN HIS CHAIR VISITING WITH HIS FAMILY AT THIS TIME. HE IS AWAITING HIS TRANSFER TO [facility] AT THIS TIME. HE DECLINES HIS AM FEEDING STATING THAT HE IS NOT HUNGRY.
--- NOTE | 2018-09-28 09:43 | NUR ---
PT HAD A LARGE BM THIS AM AND VOIDED 250ML AT THAT TIME.
--- NOTE | 2018-09-28 09:50 | NUR ---
PATIENT SITTING UP IN CHAIR. , DAUGHRTER AND RN IN ROOM. VITAL SIGNS AND I&O DONE. CALL LIGHT WITHIN REACH. NO OTHER NEEDS AT THIS TIME
--- NOTE | 2018-09-28 10:12 | NUR ---
PT SITTING UP IN HIS CHAIR AND STATES HE IS HAVING SOME SOB. SAT CHECKED AND IT IS 93% ON ROOM AIR. LUNGS NOTED TO HAVE FINE CRACKLES IN THE BASES. PT ENCOUARGED TO DEEP BREATH AND COUGH AND TO USE HIS IS WHICH HE IS DOING AT THIS TIME. DR TO NOTIFIED OF THE PT'S STATUS.
--- NOTE | 2018-09-28 10:24 | NUR ---
1020: Pt transfered to [facility] in [place] at this time. I attempted to call report twice and have been unable to give report as of yet. I left a message for them to call me back to give report.
--- NOTE | 2018-09-28 10:33 | NUR ---
I called and spoke with Olga CAVANAUGH at [facility] and gave her report at this time.
== END 2018-09-28 10:25 | DRG 536 ==
LOC: ED 17:16 → MS 17:17 → ED 20:21 → MS 22:23
PROVIDERS: ADMIT Internal Medicine
DX: S32.591A Other specified fracture of right pubis, initial encounter for closed fracture (principal); G12.21 Amyotrophic lateral sclerosis; R47.1 Dysarthria and anarthria; R13.12 Dysphagia, oropharyngeal phase; G47.33 Obstructive sleep apnea (adult) (pediatric); K59.00 Constipation, unspecified; R26.81 Unsteadiness on feet; W01.0XXA Fall on same level from slipping, tripping and stumbling without subsequent striking against object, initial encounter; Z66 Do not resuscitate; Z95.2 Presence of prosthetic heart valve; Z93.1 Gastrostomy status; Z88.8 Allergy status to other drugs, medicaments and biological substances; Z79.899 Other long term (current) drug therapy
CPT/HCPCS: 70450; 72125; 72192; 73502; 80053; 85025; 85610; 92610; 96374; 97110; 97116; 97162; 97166; 97530; 97535; 99285-25; J1650; J2765; J3010; J7030; J7120

== ENCOUNTER 2018-12-17 20:12 | Emergency (ER) | payer MEDICARE, OTHER ==
[~2018-12-17] VITALS: Ht 177.8 cm; Wt 70.4 kg
[~2018-12-17 20:12] MED LIST changes: +GLYCOPYRROLATE2 MG PO; +HYDROCODONE-ACE15 M3 PT; +RADICAVA IV; +RILUTEK50 MG PO
[2018-12-17] MEDS ORDERED: LORAZEPAM0.5 MG PO (20:34)
[2018-12-17] MEDS ORDERED: BUPROPION HCL100 MG PO (20:36)
[2018-12-17] MEDS ORDERED: RANITIDINE15 MG/1 ML PO (20:37)
== END 2018-12-17 23:37 | disposition home or self-care (01) ==
LOC: ED 20:12
DX: R10.9 Unspecified abdominal pain (principal); I10 Essential (primary) hypertension; Z86.73 Personal history of transient ischemic attack (TIA), and cerebral infarction without residual deficits; Z79.899 Other long term (current) drug therapy
CPT/HCPCS: 74018; 74177; 80053; 85025; 99284-25

== ENCOUNTER 2019-10-11 03:20 | Emergency (ER) | payer MEDICARE, OTHER ==
[~2019-10-11] VITALS: Ht 177.8 cm; Wt 70.4 kg
[~2019-10-11 03:20] MED LIST changes: +BUPROPION HCL100 MG PO; +LORAZEPAM0.5 MG PO; +RANITIDINE15 MG/1 ML PO
[2019-10-11] MEDS ORDERED: PROTONIX40 M1 PO (03:37)
[2019-10-11] MEDS ORDERED: MIRALAX17 GM PO (03:38)
[2019-10-11] MEDS ORDERED: ACID REDUCER10 MG PO (03:39)
== END 2019-10-11 05:58 | disposition home or self-care (01) ==
LOC: ED 03:20
DX: T83.091A Other mechanical complication of indwelling urethral catheter, initial encounter (principal); N39.0 Urinary tract infection, site not specified; K59.00 Constipation, unspecified; I48.91 Unspecified atrial fibrillation; N40.0 Benign prostatic hyperplasia without lower urinary tract symptoms; E78.5 Hyperlipidemia, unspecified; Z79.899 Other long term (current) drug therapy
CPT/HCPCS: 51702; 74018; 81001; 99284-25